=== PATIENT | male | born 1945 | race Caucasian/White ===

== ENCOUNTER → 2017-03-17 06:41 | Emergency (ER) | payer OTHER ==
[~2017-03-17 06:41] MED LIST: Ketorolac INJ* 30 MG/ML 1 ML VIAL IV PUSH ONE; NS 0.9% 1000 ML* 1,000 ML IV ONE; Ondansetron INJ* 2 MG/ML VIAL IV ONE; Orphenadrine Citrate IV* 30 MG/ML 2 ML VIAL IV ONE; fentaNYL* 50 MCG/ML 2 ML VIAL (100 MCG VIAL) IV SLOW PU ONE
[2017-03-17 07:46] LABS: Hematocrit 39 % (42-52); Hemoglobin 13.6 g/dl (14.0-18.0); Mean Corpuscular HGB Conc 35 g/dl (31-36); Mean Corpuscular Hemoglobin 34 pg (27-31); Mean Corpuscular Volume 95 fL (80-94); Mean Platelet Volume 9 um3 (7.4-10.4); Red Blood Count 4.04 10^6/ul (4.0-5.4); Red Cell Distribution Width 13 % (10.5-15); White Blood Count 9.2 10^3/ul (3.5-10.8)
[2017-03-17 08:02] LABS: Albumin 3.8 g/dL (3.2-5.2); BUN/Creatinine Ratio 14.6 (8-20); EGFR African American 53.5 (>60); EGFR Non-African American 41.6 (>60); Potassium 3.8 mmol/L (3.5-5.0); Total Bilirubin 0.6 mg/dL (0.2-1.0); Total Protein 6.8 g/dL (6.4-8.9)
[2017-03-17 08:18] LABS: C Reactive Protein 6.94 mg/L (< 5.00)
[2017-03-17 08:26] LABS: Urine Bacteria Absent (Absent); Urine Bilirubin Negative (Negative); Urine Glucose Negative (Negative); Urine Nitrite Negative (Negative)
--- NOTE | 2017-03-17 08:41 | RAD ---
INDICATION: Bilateral flank and back pain. Question aneurysm of the abdominal aorta versus lumbar pathology. COMPARISON: March 23, 2016 CT TECHNIQUE: Multidetector CT images were obtained from the lung bases to the ischial tuberosities. Evaluation of the viscera is limited without IV contrast. Multiplanar reformation. REPORT: Emphysematous change noted at the visualized lung bases. Coronary artery calcifications. Upper normal heart size. Unremarkable unenhanced liver, gallbladder, pancreas, spleen. Negative for CT abnormality of the upper GI, small bowel, or appendix visualized along the RIGHT pelvic sidewall. Severe colonic diverticulosis most marked at the sigmoid colon without findings of diverticulitis. Negative for ascites, free air. Small fat-containing umbilical hernia without inflammatory change. Normal adrenal glands. Negative for urolithiasis or hydronephrosis. No focal renal lesions evident. Unremarkable nondilated ureters and moderately distended urinary bladder. Symmetric seminal vesicles. Negative for lymphadenopathy. Mild calcific plaque of normal diameter abdominal aorta and common iliac arteries. Physiologic distention of the IVC. Negative for fracture or suspicious focal osseous lesions. Multilevel degenerative spondylosis and facet joint osteoarthritis of the lumbar sacral spine. At L3-L4 dorsal disc osteophyte complex and posterior element hypertrophy results in [id number] acquired central canal stenosis. At L4-L5 there is grade 1 degenerative anterolisthesis. Degenerative spondylosis and severe posterior element osteoarthritis results in severe acquired central canal stenosis and moderate bilateral foraminal stenosis. At L5-S1 degenerative spondylosis and posterior element osteoarthritis results in mild acquired central canal stenosis and mild RIGHT and moderate LEFT foraminal stenosis. IMPRESSION: 1. Negative for obstructive uropathy. 2. Normal appendix documented. 3. Severe sigmoid diverticulosis without findings of diverticulitis. 4. Lumbar sacral spine degenerative spondylosis and posterior element osteoarthritis with resulting multilevel spinal stenosis without significant interval change.
[2017-03-17 09:55] VITALS: BP 127/75
--- NOTE | 2017-03-17 10:02 | ED ---
Mariana Hammond Alfonso, scribed for Danny Price MD on 03/17/17 at 0711 . Back Pain - HPI Summary HPI Summary: This patient is a 71 year old F BIBA to [facility] accompanied by female with a chief complaint of back spasms since last night. He reports "I was getting out of the car last night" and "I twisted my body and wrenched my back and I have been on the floor since then." He denies experience back spasms before last night. The patient rates the pain 7/10 in severity. Symptoms aggravated by movement and alleviated by position. Symptoms not alleviated by ASA and Tylenol taken at approximately 0300 today. The patient reports SOB "it is like my diaphragm paralyzes," dizziness, and lightheadedness. The patient denies abdominal pain. PMHx of DM, HTN, and gout. - History of Current Complaint Chief Complaint: EDBackInjuryPain Stated Complaint: BACK PAIN Time Seen by Provider: 03/17/17 07:03 Hx Obtained From: Patient Onset/Duration: Sudden Onset, Lasting Hours - Last night, Still Present Timing: Constant Severity Initially: Moderate Severity Currently: Moderate Pain Intensity: 7 Pain Scale Used: 0-10 Numeric Character: Spasmodic Aggravating Symptom(s): Movement Alleviating Symptom(s): Position Associated Signs And Symptoms: Positive: Other - Positive SOB it is like my diaphragm paralyzes, dizziness, and lightheadedness.. Negative: Abdominal Pain - Allergies/Home Medications Allergies/Adverse Reactions: Allergies Allergy/AdvReac Type Severity Reaction Status Date / Time Shellfish Allergy Allergy Severe Airway Verified 03/17/17 06:49 Obstruction Sulfa Drugs Allergy Severe Anaphylatic Verified 03/17/17 06:49 Shock PMH/Surg Hx/FS Hx/Imm Hx Endocrine/Hematology History: Reports: Hx Diabetes - controlled with oral medication Denies: Hx Thyroid Disease, Hx Anemia Cardiovascular History: Reports: Hx Hypercholesterolemia, Hx Hypertension - controlled via medication Respiratory History: Denies: Hx Asthma, Hx Chronic Obstructive Pulmonary Disease (COPD) GI History: Reports: Hx Diverticulosis Denies: Hx Jaundice, Hx Ulcer History: Reports: Other Problems/Disorders - UTIs Musculoskeletal History: Reports: Hx Gout, Other Musculoskeletal History - gout Sensory History: Reports: Hx Contacts or Glasses Denies: Hx Hearing Aid Opthamlomology History: Reports: Hx Contacts or Glasses Neurological History: Denies: Hx Headaches - Cancer History Cancer Type, Location and Year: Skin cancer- basal cell, removed - Surgical History Surgery Procedure, Year, and Place: RHINOPLASTY. THUMB SURGERY. Left total knee replacement. 1974 right thumb joint removed Hx Anesthesia Reactions: No - Immunization History Date of Tetanus Vaccine: utd Date of Influenza Vaccine: utd Infectious Disease History: No Infectious Disease History: Denies: Hx Hepatitis, Hx Human Immunodeficiency Virus (HIV), Traveled Outside the [place] in Last 30 Days - Family History Known Family History: Positive: Hypertension, Diabetes - Social History Alcohol Use: Occasionally Alcohol Amount: 3 drinks Hx Substance Use: No Substance Use Type: Reports: None Hx Tobacco Use: Yes Smoking Status (MU): Former Smoker Have You Smoked in the Last Year: No Review of Systems Positive: Shortness Of Breath - "it is like my diaphragm paralyzes Negative: Abdominal Pain Musculoskeletal: Other - Positive back spasms Neurological: Other - Positive dizziness, and lightheadedness All Other Systems Reviewed And Are Negative: Yes Physical Exam - Summary Physical Exam Summary: VITAL SIGNS: Reviewed. GENERAL: Patient is a well-developed and nourished male who is lying comfortable in the stretcher. Patient is not in any acute respiratory distress. HEAD AND FACE: No signs of trauma. No ecchymosis, hematomas or skull depressions. No sinus tenderness. EYES: PERRLA, EOMI x 2, No injected conjunctiva, no nystagmus. EARS: Hearing grossly intact. Ear canals and tympanic membranes are within normal limits. MOUTH: Oropharynx within normal limits. NECK: Supple, trachea is midline, no adenopathy, no JVD, no carotid bruit, no c- spine tenderness, neck with full ROM. CHEST: Symmetric, no tenderness at palpation LUNGS: Clear to auscultation bilaterally. No wheezing or crackles. CVS: Regular rate and rhythm, S1 and S2 present, no murmurs or gallops appreciated. ABDOMEN: Soft, non-tender. No signs of distention. No rebound no guarding, and no masses palpated. Bowel sounds are normal. BACK: Diffuse muscle spasms in lumbar and thoracic spine. EXTREMITIES: FROM in all major joints, no edema, no cyanosis or clubbing. NEURO: Alert and oriented x 3. No acute neurological deficits. Speech is normal and follows commands. SKIN: Dry and warm Triage Information Reviewed: Yes Vital Signs On Initial Exam: Initial Vitals Temp Pulse Resp BP Pulse Ox 97.3 F 87 16 132/48 95 03/17/17 06:43 03/17/17 06:43 03/17/17 06:43 03/17/17 06:43 03/17/17 06:43 Vital Signs Reviewed: Yes - [place] Coma Scale Coma Scale Total: 15 Diagnostics - Vital Signs Vital Signs Temp Pulse Resp BP Pulse Ox 03/17/17 06:45 97.3 F 86 16 132/48 94 03/17/17 06:43 97.3 F 87 16 132/48 95 - Laboratory Lab Results: Lab Results 03/17/17 03/17/17 03/17/17 Range/Units 07:39 07:39 07:39 WBC 9.2 (3.5-10.8) 10^3/ul RBC 4.04 (4.0-5.4) 10^6/ul Hgb 13.6 L (14.0-18.0) g/dl Hct 39 L (42-52) % MCV 95 H (80-94) fL MCH 34 H (27-31) pg MCHC 35 (31-36) g/dl RDW 13 (10.5-15) % Plt Count 164 (150-450) 10^3/ul MPV 9 (7.4-10.4) um3 Neut % (Auto) 70.9 (38-83) % Lymph % (Auto) 14.7 L (25-47) % [place] % (Auto) 11.5 H (1-9) % Eos % (Auto) 2.0 (0-6) % Baso % (Auto) 0.9 (0-2) % Absolute Neuts (auto) 6.6 (1.5-7.7) 10^3/ul Absolute Lymphs (auto) 1.4 (1.0-4.8) 10^3/ul Absolute Monos (auto) 1.1 H (0-0.8) 10^3/ul Absolute Eos (auto) 0.2 (0-0.6) 10^3/ul Absolute Basos (auto) 0.1 (0-0.2) 10^3/ul Absolute Nucleated RBC 0 10^3/ul Nucleated RBC % 0 Sodium 133 (133-145) mmol/L Potassium 3.8 (3.5-5.0) mmol/L Chloride 98 L (101-111) mmol/L Carbon Dioxide 26 (22-32) mmol/L Anion Gap 9 (2-11) mmol/L BUN 24 (6-24) mg/dL Creatinine 1.64 H (0.67-1.17) mg/dL Est GFR ( Amer) 53.5 (>60) Est GFR (Non-Af Amer) 41.6 (>60) BUN/Creatinine Ratio 14.6 (8-20) Glucose 193 H (70-100) mg/dL Lactic Acid 1.4 (0.5-2.0) mmol/L Calcium 10.0 (8.6-10.3) mg/dL Total Bilirubin 0.60 (0.2-1.0) mg/dL AST 120 H (13-39) U/L ALT 106 H (7-52) U/L Alkaline Phosphatase 40 (34-104) U/L C-Reactive Protein 6.94 H (< 5.00) mg/L Total Protein 6.8 (6.4-8.9) g/dL Albumin 3.8 (3.2-5.2) g/dL Globulin 3.0 (2-4) g/dL Albumin/Globulin Ratio 1.3 (1-3) Urine Color Urine Appearance Urine pH (5-9) Ur Specific [place] (1.010-1.030) Urine Protein (Negative) Urine Ketones (Negative) Urine Blood (Negative) Urine Nitrate (Negative) Urine Bilirubin (Negative) Urine Urobilinogen (Negative) Ur Leukocyte Esterase (Negative) Urine WBC (Auto) (Absent) Urine RBC (Auto) (Absent) Ur Squamous Epith Cells (Absent) Urine Bacteria (Absent) Hyaline Casts (Absent) Urine Glucose (Negative) 03/17/17 Range/Units 08:06 WBC (3.5-10.8) 10^3/ul RBC (4.0-5.4) 10^6/ul Hgb (14.0-18.0) g/dl Hct (42-52) % MCV (80-94) fL MCH (27-31) pg MCHC (31-36) g/dl RDW (10.5-15) % Plt Count (150-450) 10^3/ul MPV (7.4-10.4) um3 Neut % (Auto) (38-83) % Lymph % (Auto) (25-47) % [place] % (Auto) (1-9) % Eos % (Auto) (0-6) % Baso % (Auto) (0-2) % Absolute Neuts (auto) (1.5-7.7) 10^3/ul Absolute Lymphs (auto) (1.0-4.8) 10^3/ul Absolute Monos (auto) (0-0.8) 10^3/ul Absolute Eos (auto) (0-0.6) 10^3/ul Absolute Basos (auto) (0-0.2) 10^3/ul Absolute Nucleated RBC 10^3/ul Nucleated RBC % Sodium (133-145) mmol/L Potassium (3.5-5.0) mmol/L Chloride (101-111) mmol/L Carbon Dioxide (22-32) mmol/L Anion Gap (2-11) mmol/L BUN (6-24) mg/dL Creatinine (0.67-1.17) mg/dL Est GFR ( Amer) (>60) Est GFR (Non-Af Amer) (>60) BUN/Creatinine Ratio (8-20) Glucose (70-100) mg/dL Lactic Acid (0.5-2.0) mmol/L Calcium (8.6-10.3) mg/dL Total Bilirubin (0.2-1.0) mg/dL AST (13-39) U/L ALT (7-52) U/L Alkaline Phosphatase (34-104) U/L C-Reactive Protein (< 5.00) mg/L Total Protein (6.4-8.9) g/dL Albumin (3.2-5.2) g/dL Globulin (2-4) g/dL Albumin/Globulin Ratio (1-3) Urine Color [place] Urine Appearance Cloudy Urine pH 5.0 (5-9) Ur Specific [place] 1.017 (1.010-1.030) Urine Protein 1+(30 mg/dl) H (Negative) Urine Ketones Trace H (Negative) Urine Blood Negative (Negative) Urine Nitrate Negative (Negative) Urine Bilirubin Negative (Negative) Urine Urobilinogen Negative (Negative) Ur Leukocyte Esterase 1+ H (Negative) Urine WBC (Auto) Trace(0-5/hpf) (Absent) Urine RBC (Auto) Absent (Absent) Ur Squamous Epith Cells Present H (Absent) Urine Bacteria Absent (Absent) Hyaline Casts Present H (Absent) Urine Glucose Negative (Negative) Result Diagrams: 03/17/17 07:39 03/17/17 07:39 Lab Statement: Any lab studies that have been ordered have been reviewed, and results considered in the medical decision making process. - CT A/P CT Interpretation Completed By: Radiologist - 1. Negative for obstructive uropathy. 2. Normal appendix documented. 3. Severe sigmoid diverticulosis without findings of diverticulitis. 4. Lumbar sacral spine degenerative spondylosis and posterior element osteoarthritis with resulting multilevel spinal stenosis without significant interval change. Re-Evaluation - Re-Evaluation First Eval Re-Evaluation Time: 09:17 Change: Improved Comment: Patient is feeling much better. He is able to move. He denies any pain at this time. Discussed lab results and plan for discharge. He understands and agrees. Back Pain Course/Dx - Course Course Of Treatment: This patient is a 71 year old F BIBA to [facility] accompanied by female with a chief complaint of back spasms since last night. He reports "I was getting out of the car last night" and "I twisted my body and wrenched my back and I have been on the floor since then." He denies experience back spasms before last night. The patient rates the pain 7/10 in severity. Symptoms aggravated by movement and alleviated by position. Symptoms not alleviated by ASA and Tylenol taken at approximately 0300 today. The patient reports SOB "it is like my diaphragm paralyzes," dizziness, and lightheadedness. The patient denies abdominal pain. PMHx of DM, HTN, and gout. Assessment/Plan: CT A/P reveals 1. Negative for obstructive uropathy. 2. Normal appendix documented. 3. Severe sigmoid diverticulosis without findings of diverticulitis. 4. Lumbar sacral spine degenerative spondylosis and posterior element osteoarthritis with resulting multilevel spinal stenosis without significant interval change. In the ED course, the patient was given Toradol, Zofran, Norflex, and Fentanyl. Symptoms have significantly improved. At this point the patient is ambulating without significant discomfort. The patient will be discharged home with PCP follow up. Patient is hemodynamically stable and alert and oriented to person, place, and time. At this point I discussed all the findings and test results with the patient. Patient was instructed to return to the emergency room immediately if any of the symptoms return or worsens. Patient understands and agrees. Patient is able to ambulate freely w/o aid or limp in the ER. Plan of care was discussed with the patient and patient understands and agrees. All questions were answered at patient satisfaction. There were no further complaints or concerns. Neurological exam before discharge: Patient is alert and oriented x 3. No acute neurological deficits. Patient is hemodynamically stable. Patient is to follow up with primary care physician in the next 2 3 days. He understands and agrees. - Diagnoses Differential Diagnosis/HQI/PQRI: Positive: Arthritis, Herniated Disc, Renal Colic, Strain, Sprain Provider Diagnoses: Back pain, Back spasm Discharge - Discharge Plan Condition: Stable Disposition: HOME Prescriptions: Ibuprofen TAB* [Motrin TAB* 800 MG] 800 mg PO ONCE PRN #30 tab PRN Reason: Pain Methocarbamol [Robaxin-750 MG TAB] 750 mg PO TID #12 tab oxyCODONE/Acetamin 5/325 MG* [Percocet 5/325 TAB*] 1 tab PO Q6H PRN #12 tab MDD 4 PRN Reason: Pain Patient Education Materials: Back Pain (ED), Muscle Spasm (ED) Referrals: [facility] [Outside] - 3 Days The documentation as recorded by the Mariana mckeon Alfonso accurately reflects the service I personally performed and the decisions made by me, Danny Price MD.
--- NOTE | 2017-03-19 12:02 | PN ---
Progress Note - Progress Note Date of Service: 03/17/17 Note: preliminary urine culture results showed 10-25,000 of e. coli. no further action or treatment needed at this time. diagnosed with back pain and spasm at d/c.
== END | disposition home or self-care (01) ==
LOC: ED 06:41
DX: M62.830 Muscle spasm of back (principal); R06.02 Shortness of breath; Z87.891 Personal history of nicotine dependence; M54.9 Dorsalgia, unspecified
CPT/HCPCS: 36415; 74176; 80053; 81003; 81015; 83605; 85025; 86140; 87077; 87086; 87186; 96374; 96375; 99283; J1885; J2360; J2405; J3010

== ENCOUNTER 2017-09-04 00:53 | Emergency (ER) | payer OTHER ==
[2017-09-04] MEDS ORDERED: NS 0.9% 1000 ML* 1,000 ML IV ONE (01:56)
[2017-09-04 02:32] LABS: ABS Basophils 0.1 10^3/ul (0-0.2); ABS Eosinophils 0.2 10^3/ul (0-0.6); ABS Lymphocytes 1.3 10^3/ul (1.0-4.8); ABS Monocytes 1.1 10^3/ul (0-0.8); ABS Nucleated RBC 0 10^3/ul; Eosinophil % 1.3 % (0-6); Hematocrit 40 % (42-52); Lymphocyte % 8.4 % (25-47); Mean Corpuscular HGB Conc 35 g/dl (31-36); Mean Corpuscular Hemoglobin 32 pg (27-31); Mean Corpuscular Volume 94 fL (80-94); Mean Platelet Volume 9 um3 (7.4-10.4); Nucleated Red Blood Cells % 0; Platelet Count 196 10^3/ul (150-450); Red Cell Distribution Width 12 % (10.5-15); White Blood Count 15.7 10^3/ul (3.5-10.8)
[2017-09-04 02:41] LABS: Urine Appearance Turbid; Urine Blood 3+ (Negative); Urine Color Amber; Urine Ketones Trace (Negative); Urine Protein 2+(100 mg/dL) (Negative); Urine Specific Gravity 1.027 (1.010-1.030); Urine Urobilinogen Negative (Negative)
[2017-09-04 02:43] LABS: EGFR Non-African American 68.1 (>60)
[2017-09-04] MEDS ORDERED: Levofloxacin 500 MG IVPREMIX(* 500 MG/100 ML BAG IVPB ONE (02:59)
[2017-09-04 04:59] VITALS: BP 128/81
--- NOTE | 2017-09-04 05:31 | ED ---
Gillian Hammond Julia, scribed for Jesus Araya MD on 09/04/17 at 0151 . GI/ HPI - HPI Summary HPI Summary: This patient is a 71 year old M presenting to [facility] with a chief complaint of worsening urinary frequency since 16:00 09/03/17. Patient reports hematuria, mild back pain and that he is uncomfortable while urinating, but denies painful urination. Patient denies vomiting or fever. The patient rates the pain 5/10 in severity. Patient has history of kidney stones and UTI. Patient is currently taking prostate medication. - History of Current Complaint Chief Complaint: EDUrogenitalProblems Time Seen by Provider: 09/04/17 01:38 Stated Complaint: FREQUENT URINATION, ABD PAIN Hx Obtained From: Patient Onset/Duration: Started Days Ago Timing: Constant Severity: Worse Since: - 16:00 09/03/17 Current Severity: Mild Pain Intensity: 5 Location of Pain: Diffuse, Flank Associated Signs and Symptoms: Positive: Other: - urinary frequency and hematuria - Additional Pertinent History Primary Care Physician: [id number] - Allergy/Home Medications Allergies/Adverse Reactions: Allergies Allergy/AdvReac Type Severity Reaction Status Date / Time Shellfish Allergy Allergy Severe Airway Verified 03/17/17 06:49 Obstruction Sulfa Drugs Allergy Severe Anaphylatic Verified 03/17/17 06:49 Shock PMH/Surg Hx/FS Hx/Imm Hx Endocrine/Hematology History: Reports: Hx Diabetes - controlled with oral medication Denies: Hx Thyroid Disease, Hx Anemia Cardiovascular History: Reports: Hx Hypercholesterolemia, Hx Hypertension - controlled via medication Respiratory History: Denies: Hx Asthma, Hx Chronic Obstructive Pulmonary Disease (COPD) GI History: Reports: Hx Diverticulosis Denies: Hx Jaundice, Hx Ulcer History: Reports: Hx Kidney Stones, Other Problems/Disorders - UTIs Musculoskeletal History: Reports: Hx Gout, Other Musculoskeletal History - gout Sensory History: Reports: Hx Contacts or Glasses Denies: Hx Hearing Aid Opthamlomology History: Reports: Hx Contacts or Glasses Neurological History: Denies: Hx Headaches - Cancer History Cancer Type, Location and Year: Skin cancer- basal cell, removed - Surgical History Surgery Procedure, Year, and Place: RHINOPLASTY. THUMB SURGERY. Left total knee replacement. 1975 right thumb joint removed Hx Anesthesia Reactions: No - Immunization History Date of Tetanus Vaccine: utd Date of Influenza Vaccine: utd Infectious Disease History: No Infectious Disease History: Denies: Hx Hepatitis, Hx Human Immunodeficiency Virus (HIV), Traveled Outside the [place] in Last 30 Days - Family History Known Family History: Positive: Hypertension, Diabetes - Social History Alcohol Use: Occasionally Alcohol Amount: 3 drinks Hx Substance Use: No Substance Use Type: Reports: None Hx Tobacco Use: Yes Smoking Status (MU): Former Smoker Have You Smoked in the Last Year: No Review of Systems Negative: Fever Negative: Vomiting Positive: dysuria - "uncomfortable", frequency, flank pain, hematuria All Other Systems Reviewed And Are Negative: Yes Physical Exam Triage Information Reviewed: Yes Vital Signs On Initial Exam: Initial Vitals Temp Pulse Resp BP Pulse Ox 100.1 F 100 20 135/86 97 09/04/17 01:16 09/04/17 01:16 09/04/17 01:16 09/04/17 01:16 09/04/17 01:16 Vital Signs Reviewed: Yes Appearance: Positive: Well-Appearing Skin: Positive: Skin Color Reflects Adequate Perfusion Head/Face: Positive: Normal Head/Face Inspection Eyes: Positive: Normal ENT: Positive: Normal ENT inspection Respiratory/Lung Sounds: Positive: Breath Sounds Present Cardiovascular: Positive: Normal Abdomen Description: Positive: Nontender Musculoskeletal: Positive: Normal Neurological: Positive: Normal Psychiatric: Positive: Normal AVPU Assessment: Alert Diagnostics - Vital Signs Vital Signs Temp Pulse Resp BP Pulse Ox 09/04/17 01:16 100.1 F 100 20 135/86 97 - Laboratory Result Diagrams: 09/04/17 02:15 09/04/17 02:15 Lab Statement: Any lab studies that have been ordered have been reviewed, and results considered in the medical decision making process. - CT A/P CT Interpretation Completed By: Radiologist - Bilateral perinephric stranding is likely chronic. ED Physician has reviewed this report. GIGU Course/Dx - Course Course Of Treatment: Patient presents with urinary mild back pain, frequency and hemarturia. Pt has hx of UTIs and Kidney stones. Bloodwork reveals WBC of 15.7 and C-reactive protein of 17.95. UA reveals 2+ protein, 3+ leukocytes, 3+ bacteria, 3+ WBC, and 3+ RBC. Patient was given Levaquin and IV fluids. Patietn is discharged with dx of UTI. I instructed patient to follow up with PCP and urologist. - Diagnoses Provider Diagnoses: UTI (urinary tract infection) Discharge - Discharge Plan Condition: Stable Disposition: HOME Prescriptions: Levofloxacin TAB* [Levaquin TAB*] 500 mg PO DAILY #10 tab Patient Education Materials: Urinary Tract Infection in Men (DC) Referrals: Sylvester Desai MD [Primary Care Provider] - Additional Instructions: Follow up with Primary Care Provider and Urologist. Patient provided with prescription for Levaquin. RETURN TO THE EMERGENCY DEPARTMENT FOR CHANGING OR WORSENING SYMPTOMS. The documentation as recorded by the Gillian mckeon Julia accurately reflects the service I personally performed and the decisions made by Quiana flannery Abdul, MD.
--- NOTE | 2017-09-04 07:47 | RAD ---
INDICATION: Urinary frequency. Hematuria. History of UTIs and renal stones COMPARISON: CT abdomen pelvis March 17, 2017 TECHNIQUE: Noncontrast axial source images were acquired from the level hemidiaphragms to the symphysis pubis as part of CT imaging for renal stone. Lung bases: The lung bases are clear. There are mild emphysematous changes in the lung bases Liver: The liver is normal in size. Noncontrast imaging shows no evidence of a hepatic mass or ductal dilatation. Gallbladder: There are no calcified gallstones. There is no evidence of wall thickening or pericholecystic fluid.. Spleen: The spleen is normal in size. The noncontrast CT appearance is normal. Pancreas: Noncontrast imaging shows no pancreatic mass or ductal dilitation. Adrenal glands: No masses are identified. Kidneys/Bladder: There is no evidence of nephrolithiasis or CT evidence of hydronephrosis. Noncontrast imaging shows no evidence of a renal mass. There may be mild thickening of the bladder wall. Adenopathy: There is no evidence of intraperitoneal or retroperitoneal adenopathy. Evaluation is limited without oral contrast. Fluid collections: There are no free or localized fluid collections. Vessels: The aorta and iliac vessels are normal in caliber. There are no significant atherosclerotic changes. The IVC appears normal Pelvic organs: The prostate and seminal vesicles appear normal GI tract: Evaluation of the bowel is limited without oral contrast. There is a small moderate-sized hiatal hernia. The upper GI tract is otherwise unremarkable to include a normal-appearing trauma ileum. The ileocecal valve is normal. The appendix is identified and appears normal. The right and transverse colon are normal. There are extensive diverticula of the sigmoid and descending colon without CT findings specific for diverticulitis. The Soft tissues: No soft tissue abnormalities of the extraperitoneal abdomen or pelvis are identified. Osseous structures: There is advanced spondylitic changes of thoracolumbar spine as previously described. IMPRESSION: 1. No CT evidence of urolithiasis. 2. No calcified gallstones. Normal appendix. 3. Hiatal hernia 4. Apparent mild thickening of the bladder wall may reflect cystitis. 5. Extensive diverticular disease without CT evidence of acute diverticulitis. 6. Advanced osteoarthritic changes of the thoracolumbar spine
== END 2017-09-04 04:58 | disposition home or self-care (01) ==
LOC: ED 00:53
DX: N39.0 Urinary tract infection, site not specified (principal); R30.0 Dysuria; E11.9 Type 2 diabetes mellitus without complications; Z87.891 Personal history of nicotine dependence
CPT/HCPCS: 36415; 74176; 80053; 81003; 81015; 85025; 86140; 87040; 87077; 87086; 87186; 99284; J1956

== ENCOUNTER 2018-04-27 12:14 | Emergency (ER) | payer MEDICARE, OTHER ==
--- NOTE | 2018-04-27 13:00 | ED ---
Syncope/Near Syncope - HPI Summary HPI Summary: This patient is a 72 year old M presenting to ED with a chief complaint of syncope while at [facility] with his today. The patient tried to get up out of a beach chair and felt light-headed prior to falling due to the sycnopal episode. He does not remember the incident or the reason why he was getting up from the chair, and was not aware of what was happening until EMS showed up. The patient rates the pain 0/10 in severity. Symptoms aggravated by standing up. Symptoms alleviated by nothing. Patient reports head trauma that is now a little sore. Patient denies SOB and CP. Patient is not on any blood thinners. - History Of Current Complaint Chief Complaint: EDSyncope Time Seen by Provider: 04/27/18 12:49 Hx Obtained From: Patient Onset/Duration: Sudden Onset Context: Witnessed Associated Head Trauma: Yes Aggravating Factor(s): Position Change - standing up from beach chair Alleviating Factor(s): Nothing Associated Signs And Symptoms: Head Trauma (Recent), Lightheadedness - Allergies/Home Medications Allergies/Adverse Reactions: Allergies Allergy/AdvReac Type Severity Reaction Status Date / Time levofloxacin Allergy SEVERE Verified 04/27/18 12:20 NEUROPATHY IN LEGS shellfish derived Allergy Airway Verified 04/27/18 12:20 Obstruction Sulfa (Sulfonamide Allergy Anaphylatic Verified 04/27/18 12:20 Antibiotics) Shock Home Medications: Home Medications Amoxicillin/Clavulanate TAB* [Augmentin TAB 875*] 1 tab PO BID 04/27/18 [ History Confirmed 04/27/18] Atorvastatin* [Lipitor 40 MG*] 40 mg PO DAILY 04/27/18 [History Confirmed ] DULoxetine DR CAP* [Cymbalta CAP*] 1 cap PO DAILY 04/27/18 [History Confirmed ] Gabapentin CAP(*) [Neurontin 100 mg CAP(*)] 200 mg PO DAILY 04/27/18 [History Confirmed 04/27/18] Irbesartan 300 mg PO DAILY 04/27/18 [History Confirmed 04/27/18] Methylphenidate HCl [Methylphenidate ER] 1 tab PO BID MDD 2 tabs 04/27/18 [ History Confirmed 04/27/18] Naproxen Sodium [Aleve] 2 cap PO Q8H PRN 04/27/18 [History Confirmed 04/27/18] glipiZIDE [Glipizide] 5 mg PO BID 04/27/18 [History Confirmed 04/27/18] PMH/Surg Hx/FS Hx/Imm Hx Endocrine/Hematology History: Reports: Hx Diabetes - controlled with oral medication Denies: Hx Thyroid Disease, Hx Anemia Cardiovascular History: Reports: Hx Hypercholesterolemia, Hx Hypertension - controlled via medication Denies: Hx Pacemaker/ICD Respiratory History: Denies: Hx Asthma, Hx Chronic Obstructive Pulmonary Disease (COPD) GI History: Reports: Hx Diverticulosis Denies: Hx Jaundice, Hx Ulcer History: Reports: Hx Kidney Stones, Other Problems/Disorders - UTIs Denies: Hx Renal Disease Musculoskeletal History: Reports: Hx Gout, Other Musculoskeletal History - gout Sensory History: Reports: Hx Contacts or Glasses Denies: Hx Hearing Aid Opthamlomology History: Reports: Hx Contacts or Glasses Neurological History: Denies: Hx Headaches Psychiatric History: Denies: Hx Panic Disorder - Cancer History Cancer Type, Location and Year: Skin cancer- basal cell, removed - Surgical History Surgery Procedure, Year, and Place: RHINOPLASTY. THUMB SURGERY. Left total knee replacement. 1974 right thumb joint removed. SKIN CANCER REMOVAL Hx Anesthesia Reactions: No - Immunization History Date of Tetanus Vaccine: utd Date of Influenza Vaccine: utd Infectious Disease History: No Infectious Disease History: Denies: Hx Hepatitis, Hx Human Immunodeficiency Virus (HIV), Traveled Outside the [place] in Last 30 Days - Family History Known Family History: Positive: Hypertension, Diabetes - Social History Alcohol Use: Daily Alcohol Amount: 3 drinks Hx Substance Use: No Substance Use Type: Reports: None Hx Tobacco Use: Yes Smoking Status (MU): Former Smoker Have You Smoked in the Last Year: No Review of Systems Negative: Chest Pain Negative: Shortness Of Breath Positive: Other - head trauma that is now sore Neurological: Other - light-headedness Positive: Syncope - and fall All Other Systems Reviewed And Are Negative: Yes Physical Exam - Summary Physical Exam Summary: Appearance: The patient is well-nourished in no acute distress and in no acute pain. Skin: The skin is warm and dry and skin color reflects adequate perfusion. HEENT: The head is normocephalic and atraumatic. The pupils are equal and reactive. The conjunctivae are clear and without drainage. Nares are patent and without drainage. Mouth reveals moist mucous membranes and the throat is without erythema and exudate. The external ears are intact. The ear canals are patent and without drainage. The tympanic membranes are intact. Neck: The neck is supple with full range of motion and non-tender. There are no carotid bruits. There is no neck vein distension. Respiratory: Chest is non-tender. Lungs are clear to auscultation and breath sounds are symmetrical and equal. Cardiovascular: Has an irregular heartbeat. There is no murmur or rub auscultated. There is no peripheral edema and pulses are symmetrical and equal. Abdomen: The abdomen is soft and non-tender. There are normal bowel sounds heard in all four quadrants and there is no organomegaly palpated. Musculoskeletal: There is no back tenderness noted. Extremities are non-tender with full range of motion. There is good capillary refill. There is no peripheral edema or calf tenderness elicited. Neurological: Patient is alert and oriented to person, place and time. The patient has symmetrical motor strength in all four extremities. Cranial nerves are grossly intact. Deep tendon reflexes are symmetrical and equal in all four extremities. Psychiatric: The patient has an appropriate affect and does not exhibit any anxiety or depression. Triage Information Reviewed: Yes Vital Signs On Initial Exam: Initial Vitals Temp Pulse Resp BP Pulse Ox 98.6 F 77 14 133/71 96 04/27/18 12:15 04/27/18 12:15 04/27/18 12:15 04/27/18 12:15 04/27/18 12:15 Vital Signs Reviewed: Yes Diagnostics - Vital Signs Vital Signs Temp Pulse Resp BP Pulse Ox 04/27/18 12:15 98.6 F 77 14 133/71 96 - Laboratory Result Diagrams: 04/27/18 13:13 04/27/18 13:13 Lab Statement: Any lab studies that have been ordered have been reviewed, and results considered in the medical decision making process. - EKG 1554 Cardiac Rate: NL - 70 BPM EKG Rhythm: Sinus Rhythm Ectopy: PACs EKG Interpretation: L axis deviation Re-Evaluation - Re-Evaluation First Eval Re-Evaluation Time: 15:03 Comment: Discussed results with the patient and plan for admission. Patient understands and agrees with this plan. Course/Dx Course Of Treatment: Mr. Scott presented to the emergency department after a syncopal episode at [facility]. He had been sitting in a low-slung chair playing [employer] and that's the last he remembers. He was reported that he attempted to stand up and then fell over hitting the back of his head. He reports that it is not unusual for him to get dizzy if he stands up too quickly. His workup was negative here except for an elevated lactic acid. My concern was for the fact that he had no warning signs or symptoms of his impending syncope although this may represent an amnesia after hitting his head. The hospice were asked to consult on him and felt that he was safe for discharge after being administered a liter of normal saline. - Diagnoses Differential Diagnosis/HQI/PQRI: Positive: Other - syncope, lactic acidosis Provider Diagnoses: Syncope, Lactic acidosis - Physician Notifications Discussed Care of Patient With: Dana Recio Time Discussed With Above Provider: 14:57 Instructed by Provider To: Other - Consulted Dr. Recio who accepts the patient for admission. Consulted Dr. Desai at 1501 about the patient's case. Dr. Recio says that the patient can actually be discharged. Therefore, the patient will be discharged. Discharge - Sign-Out/Discharge Documenting (check all that apply): Patient Departure - Discharged - Discharge Plan Condition: Stable Disposition: HOME Patient Education Materials: Syncope (ED) Referrals: Sylvester Desai MD [Primary Care Provider] - (Please follow up with your primary care physician in 2-3 days.) Additional Instructions: Please follow up with your primary care physician in 2-3 days. RETURN TO THE ED FOR ANY NEW OR WORSENING SYMPTOMS. - Billing Disposition and Condition Condition: STABLE Disposition: Home - Attestation Statements Document Initiated by Sunita: Yes Documenting Scribe: Nicolas Herman Provider For Whom Sunita is Documenting (Include Credential): Wilson Jara MD Scribe Attestation: Nicolas Hammond, scribed for Wilson Jara MD on 04/27/18 at 8874. Scribe Documentation Reviewed: Yes Provider Attestation: The documentation as recorded by the Nicolas mckeon accurately reflects the service I personally performed and the decisions made by me, Wilson Jara MD
[2018-04-27 13:26] LABS: ABS Basophils 0.1 10^3/ul (0-0.2); ABS Eosinophils 0.5 10^3/ul (0-0.6); ABS Lymphocytes 1.5 10^3/ul (1.0-4.8); ABS Monocytes 0.6 10^3/ul (0-0.8); ABS Neutrophils 5.4 10^3/ul (1.5-7.7); ABS Nucleated RBC 0 10^3/ul; Eosinophil % 6.6 % (0-6); Hematocrit 38 % (42-52); Hemoglobin 13.2 g/dl (14.0-18.0); Mean Corpuscular HGB Conc 35 g/dl (31-36); Mean Corpuscular Hemoglobin 32 pg (27-31); Mean Corpuscular Volume 91 fL (80-94); Mean Platelet Volume 8.1 um3 (7.4-10.4); Nucleated Red Blood Cells % 0; Platelet Count 241 10^3/ul (150-450); Red Blood Count 4.12 10^6/ul (4.00-5.40); Red Cell Distribution Width 13 % (10.5-15); White Blood Count 8.1 10^3/ul (3.5-10.8)
[2018-04-27 13:31] LABS: INR 0.97 (0.77-1.02)
[2018-04-27 13:42] LABS: EGFR Non-African American 58.9 (>60)
[2018-04-27 14:09] LABS: Urine Appearance Clear; Urine Blood Negative (Negative); Urine Color Yellow; Urine Ketones Negative (Negative); Urine Protein Negative (Negative); Urine Specific Gravity 1.008 (1.010-1.030); Urine Urobilinogen Negative (Negative)
[2018-04-27] MEDS ORDERED: NS 0.9% 1000 ML* 1,000 ML IV ONE (14:54)
[2018-04-27] MEDS ORDERED: Magnesium Oxide TAB* 400 MG PO ONE (16:46)
[2018-04-27 17:32] VITALS: BP 142/90
--- NOTE | 2018-04-27 21:01 | CONS ---
ADDENDUM NOW INCLUDED ON THIS REPORT CC: Dr. Desai * HOSPITAL MEDICINE CONSULTATION REPORT: DATE OF CONSULT: 04/27/18 PRIMARY CARE PHYSICIAN: Dr. Desai. CONSULTING PHYSICIAN: Dr. Olinda Khan * (dictation provided by Adelina Dougherty NP). REASON FOR CONSULT: Concern for need for admission. HISTORY OF PRESENT ILLNESS: Mr. Allred is a 72-year-old male with past medical history of type 2 diabetes, depression, gout, hypertension, and hyperlipidemia, who presented to the hospital today with concern for an episode of syncope. The patient states that he has had episodes of lightheadedness when he goes from sit to stand for a very long time. He will also feel oozy or lightheaded and sometime he will need to sit back down. These symptoms resolve within a few seconds and on a couple of occasions in the distant past, he had to lie down on the floor when he had these symptoms, but again never had a full syncopal episode. Today was a warm day and the patient was out to [facility] sitting on a low chair. When he went to stand, he felt very lightheaded and oozy per his routine. He asked his to help steady him, but he was unable to catch himself when he fell backwards and hit his head. He was unconscious very briefly. He did not bite his tongue or lose control of his bowel or bladder. EMS was called and the patient was brought to the hospital. EMS notes that the patient's blood pressure was about 90/60 at the [facility] prior to arrival here. The patient initially stated he did not remember any of the events of the EMS coming or being transported, but now he states he remembers all that very clearly. The patient denies any recent complaints. He was feeling well yesterday. He has had no cough, chest pain, fever, shortness of breath, nausea, vomiting, diarrhea, or abdominal pain. He has been treated recently for urinary tract infection under the direction of Dr. Galicia. He was on Augmentin for [address] Galicia on Saturday, who saw some red cells in the urine and recommended an additional 5-day course. The patient denies any pain or difficulty with urination. In the emergency room, the patient had labs, which were unremarkable, except for lactic acid of 3.5. He has no leukocytosis. His electrolytes are essentially normal. His creatinine is 1.21. His AST is 86, ALT 89 consistent with his previous history of transaminitis very mildly. His EKG showed no evidence of ischemia. PAST MEDICAL HISTORY: 1. BPH. 2. Depression. 3. Gout. 4. Hyperlipidemia. 5. Hypertension. 6. Obesity. 7. Type 2 diabetes, non-insulin dependent. MEDICATIONS: 1. Methylphenidate LA 20 mg p.o. daily. 2. Duloxetine DR 60 mg p.o. daily. 3. Augmentin 1 tab p.o. b.i.d. 4. Tamsulosin 0.4 mg p.o. at bedtime. 5. Naproxen p.r.n. 6. Gabapentin 200 mg p.o. daily. 7. Irbesartan 300 mg p.o. daily. 8. Uloric 40 mg p.o. daily. 9. Atorvastatin 40 mg p.o. daily. 10. Glipizide 5 mg p.o. b.i.d. ALLERGIES: LEVOFLOXACIN, SHELLFISH, and SULFA. FAMILY HISTORY: The patient reports his mother related to heart attack, and dad related to lung cancer and CHF. SOCIAL HISTORY: The patient is a former smoker. He quit 30 years ago, but smoked for about 25 years. He drinks about 1 to 2 drinks per night. He denies any drug use. He lives with his , who is his healthcare proxy. REVIEW OF SYSTEMS: A 14-point review of systems was completed with Mr. Allred and all those not mentioned above were negative. PHYSICAL EXAM: Vital Signs: Temperature 98.6, pulse rate 74, respiratory rate 17, O2 saturation 98% on room air, and blood pressure 156/50. General: The patient is lying in the bed. He is in no acute distress. His is at the bedside. Neuro: He is alert. He is oriented x3. He moves all extremities equally. There is no facial asymmetry or focal weakness. Extraocular movements are intact. Heart: S1, S2. No murmur, rub, or gallop and regular. Lungs are clear to auscultation bilaterally, no accessory muscle use and good aeration. Abdomen is soft, nontender with bowel sounds positive x4. Extremities: No cyanosis, no edema. Skin is intact. DIAGNOSTIC STUDIES/LAB DATA: WBC 8.1, hemoglobin 13.2, hematocrit 38, and platelet count 241. INR 0.97. Sodium 134, potassium 3.7, chloride 96, serum bicarbonate 25, BUN 18, creatinine 1.21, glucose 203, lactic acid 3.5, magnesium 1.3. TSH 1.05. Troponin 0.01. Urine shows no evidence of infection. EKG shows sinus rhythm with no evidence of ischemia. Tracing is almost identical to previous tracing from 2016. ASSESSMENT: Mr. Allred is a 72-year-old male with past medical history of benign prostatic hyperplasia, depression, gout, hypertension, hyperlipidemia, and diabetes, who presents to the hospital today after having what sounds to be a vasovagal episode while out at a park today. The question has been asked whether or not the patient should be admitted. The ED physician was concerned as the patient's lactic acid was elevated to 3.5. The patient was given intravenous fluids in the ED and this was rechecked and it is now 1.9. I think that this incidental finding of lactic acid simply reflects a low perfusion state in the setting of vasovagal syncope and has resolved appropriately. The only other finding I see today is the patient's magnesium is little low and would recommend supplementation. The patient's blood pressure was low in the field prior to coming in, but has been running 130s to 150s on his home hydrochlorothiazide, irbesartan; and, therefore, I think he should continue those medications. Based on the patient's description of his symptoms, I believe that he had an episode of vasovagal syncope consistent with his history of frequent near syncopal episodes in the past. I question whether or not he perhaps has a component of diabetic autonomic neuropathy with his history of diabetes, which at least in the past has been poorly controlled. RECOMMENDATIONS: My recommendation is that he follow closely with Dr. Desai and he has an appointment in that office on Saturday of this week. He is to stay hydrated in the meantime and I have spoken with the ED physician about the possibility of putting him on magnesium supplementation as well given his low magnesium, although I think this is incidental finding and not related to his syncope. Mr. Allred is doing very well today. He is completely asymptomatic and he is very clear that he would like to be discharged to home. I think this is appropriate giving our negative workup except for the incidental finding of lactic acidosis, which has resolved. TIME SPENT: Approximately 60 minutes were spent in the consultation of this patient, more than half time was spent with the patient at the bedside reviewing the events leading up to this hospitalization, performing the physical examination, and reviewing the plan of care. ADELINA DOUGHERTY NP ADDENDUM: DATE OF CONSULTATION: 04/27/18 This case was reviewed and discussed with Adelina Dougherty NP. In summary, Mr. Allred is a 72-year-old male with a past medical history of type 2 diabetes, hypertension, hyperlipidemia, gout, depression, who presented to the emergency room after sustaining a syncopal episode at [facility]. The patient describes prior syncopal episodes in the past, usually when changing positions. The impression is that the syncopal episode he sustained today was secondary to dehydration as it was hot out. His laboratory tests showed elevation of his creatinine at 1.2. His magnesium was 1.3. His initial lactic acid was 3.5. His EKG showed no ischemic changes and after receiving IV fluids in the emergency room, the patient felt very anxious for discharge. He states that the symptoms he had today are similar to the symptoms he had in the past. I suspect the patient may have a component of orthostatism due to autonomic neuropathy associated with diabetes and that associated with dehydration today, is most likely the cause of his syncopal episode. After IV fluids in the emergency room, a repeat lactic acid was back to normal at 1.9 and the patient was really anxious to be discharged. He already has a followup appointment at Dr. Desai's office on 04/29/18 and at this point, the plan is for him to be discharged to have his close followup. He was advised to keep himself hydrated. We will replete his electrolytes. As described above, the case was reviewed and discussed with Adelina Dougherty NP. OLINDA Khan MD [id number]/[facility] #: [id number] Andria [id number]/[facility] #: [id number] EFRAIN
--- NOTE | 2018-04-27 21:01 | CONS ---
CC: Sylvester Desai MD CONSULTATION REPORT: ADDENDUM: DATE OF CONSULTATION: 04/27/18 This case was reviewed and discussed with Adelina Dougherty NP. In summary, Mr. Allred is a 72-year-old male with a past medical history of type 2 diabetes, hypertension, hyperlipidemia, gout, depression, who presented to the emergency room after sustaining a syncopal episode at [facility]. The patient describes prior syncopal episodes in the past, usually when changing positions. The impression is that the syncopal episode he sustained today was secondary to dehydration as it was hot out. His laboratory tests showed elevation of his creatinine at 1.2. His magnesium was 1.3. His initial lactic acid was 3.5. His EKG showed no ischemic changes and after receiving IV fluids in the emergency room, the patient felt very anxious for discharge. He states that the symptoms he had today are similar to the symptoms he had in the past. I suspect the patient may have a component of orthostatism due to autonomic neuropathy associated with diabetes and that associated with dehydration today, is most likely the cause of his syncopal episode. After IV fluids in the emergency room, a repeat lactic acid was back to normal at 1.9 and the patient was really anxious to be discharged. He already has a followup appointment at Dr. Desai's office on 04/29/18 and at this point, the plan is for him to be discharged to have his close followup. He was advised to keep himself hydrated. We will replete his electrolytes. As described above, the case was reviewed and discussed with Adelina Dougherty NP. [id number]/[facility] #: [id number] [facility]ENTER[facility]ilian
== END 2018-04-27 17:18 | disposition home or self-care (01) ==
LOC: ED 12:14
DX: R55 Syncope and collapse (principal); E87.2 Acidosis; Z87.891 Personal history of nicotine dependence; I10 Essential (primary) hypertension; E11.9 Type 2 diabetes mellitus without complications; E78.00 Pure hypercholesterolemia, unspecified; Z85.828 Personal history of other malignant neoplasm of skin; E78.5 Hyperlipidemia, unspecified; M10.9 Gout, unspecified; E66.9 Obesity, unspecified
CPT/HCPCS: 36415; 80053; 81003; 83605; 83735; 84443; 84484; 85025; 85610; 86803; 93005; 99284

== ENCOUNTER 2018-12-05 10:59 | Emergency (ER) | payer OTHER ==
--- NOTE | 2018-12-05 11:19 | ED ---
Dizziness - HPI Summary HPI Summary: Pt is a 72 y/o M presenting to the ED brought over from the pain clinic for dizziness. The pt was at the pain clinic to receive a Cortisol injection into his back for diabetic neuropathy. Upon taking vitals, they said he was hypotensive. The pt reports chronic dizziness d/t imbalance secondary to neuropathy, but currently states he feels good. He denies SOB. - History Of Current Complaint Chief Complaint: EDDizziness Stated Complaint: LETHARGY/NEAR SYNCOPE PER RN Time Seen by Provider: 12/05/18 11:04 Hx Obtained From: Patient Onset/Duration: Suddenly Timing: Constant Severity Initially: Moderate Severity Currently: Moderate Character: Dizzy Aggravating Factor(s): Position Change Alleviating Factor(s): Nothing Associated Signs And Symptoms: Negative: SOB - Allergies/Home Medications Allergies/Adverse Reactions: Allergies Allergy/AdvReac Type Severity Reaction Status Date / Time levofloxacin Allergy SEVERE Verified 12/05/18 11:06 NEUROPATHY IN LEGS shellfish derived Allergy Airway Verified 12/05/18 11:06 Obstruction Sulfa (Sulfonamide Allergy Anaphylatic Verified 12/05/18 11:06 Antibiotics) Shock Home Medications: Home Medications Amoxicillin PO (*) [Amoxicillin 500 MG CAP*] 500 mg PO ONCE 12/05/18 [History Confirmed 12/05/18] Tamsulosin CAP* [Flomax CAP*] 0.4 mg PO DAILY 12/05/18 [History Confirmed ] PMH/Surg Hx/FS Hx/Imm Hx Previously Healthy: Yes Endocrine/Hematology History: Reports: Hx Diabetes - controlled with oral medication Denies: Hx Thyroid Disease, Hx Anemia Cardiovascular History: Reports: Hx Hypercholesterolemia, Hx Hypertension - controlled via medication Denies: Hx Pacemaker/ICD Respiratory History: Reports: Hx Sleep Apnea Denies: Hx Asthma, Hx Chronic Obstructive Pulmonary Disease (COPD) GI History: Reports: Hx Diverticulosis Denies: Hx Jaundice, Hx Ulcer History: Reports: Hx Benign Prostatic Hyperplasia, Hx Kidney Stones, Other Problems/Disorders - UTIs Denies: Hx Renal Disease Musculoskeletal History: Reports: Hx Arthritis, Hx Back Problems, Hx Gout, Other Musculoskeletal History - gout Sensory History: Reports: Hx Contacts or Glasses Denies: Hx Hearing Aid Opthamlomology History: Reports: Hx Contacts or Glasses Neurological History: Denies: Hx Headaches Comment Only: Other Neuro Impairments/Disorders - PAIN CLINIC PT. Psychiatric History: Reports: Hx Depression Denies: Hx Panic Disorder - Cancer History Cancer Type, Location and Year: Skin cancer- basal cell, removed - Surgical History Surgery Procedure, Year, and Place: RHINOPLASTY. THUMB SURGERY. Left total knee replacement. 1974 right thumb joint removed. SKIN CANCER REMOVAL Hx Anesthesia Reactions: No - Immunization History Date of Tetanus Vaccine: utd Date of Influenza Vaccine: utd Infectious Disease History: No Infectious Disease History: Denies: Hx Hepatitis, Hx Human Immunodeficiency Virus (HIV), Traveled Outside the [place] in Last 30 Days - Family History Known Family History: Positive: Hypertension, Diabetes - Social History Alcohol Use: Weekly Alcohol Amount: 12-14 drinks/week Hx Substance Use: No Substance Use Type: Reports: None Hx Tobacco Use: Yes Smoking Status (MU): Former Smoker Length of Time of Smoking/Using Tobacco: [id number] Have You Smoked in the Last Year: No Review of Systems Negative: Shortness Of Breath Neurological: Other - dizziness All Other Systems Reviewed And Are Negative: Yes Physical Exam - Summary Physical Exam Summary: Appearance: The patient is well-nourished in no acute distress and in no acute pain. Skin: The skin is warm and dry and skin color reflects adequate perfusion. HEENT: The head is normocephalic and atraumatic. The pupils are equal and reactive. The conjunctivae are clear and without drainage. Nares are patent and without drainage. Mouth reveals moist mucous membranes and the throat is without erythema and exudate. The external ears are intact. The ear canals are patent and without drainage. The tympanic membranes are intact. Neck: The neck is supple with full range of motion and non-tender. There are no carotid bruits. There is no neck vein distension. Respiratory: Chest is non-tender. Lungs are clear to auscultation and breath sounds are symmetrical and equal. Cardiovascular: Heart is regular rate and rhythm. There is no murmur or rub auscultated. There is no peripheral edema and pulses are symmetrical and equal. Abdomen: The abdomen is soft and non-tender. There are normal bowel sounds heard in all four quadrants and there is no organomegaly palpated. Musculoskeletal: There is no back tenderness noted. Extremities are non-tender with full range of motion. There is good capillary refill. There is no peripheral edema or calf tenderness elicited. Neurological: Patient is alert and oriented to person, place and time. The patient has symmetrical motor strength in all four extremities. Cranial nerves are grossly intact. Deep tendon reflexes are symmetrical and equal in all four extremities. Psychiatric: The patient has an appropriate affect and does not exhibit any anxiety or depression. Triage Information Reviewed: Yes Vital Signs On Initial Exam: Initial Vitals Pulse Resp Pulse Ox 84 12 90 12/05/18 11:01 12/05/18 11:01 12/05/18 11:01 Vital Signs Reviewed: Yes Diagnostics - Vital Signs Vital Signs Temp Pulse Resp BP Pulse Ox 12/05/18 11:02 97.7 F 80 14 96/55 89 12/05/18 11:01 84 12 90 - Laboratory Result Diagrams: 12/05/18 11:45 12/05/18 11:45 Lab Statement: Any lab studies that have been ordered have been reviewed, and results considered in the medical decision making process. Re-Evaluation - Re-Evaluation 1st re-eval Re-Evaluation Time: 14:05 Change: Improved Comment: Pt states he is feeling better. Dizzy Course/Dx - Course Course Of Treatment: Mr. Allred was sent over from the oncologist office for feeling dizzy and having a low blood pressure. He does not any complaints lying in the gurney. His blood pressure was a little bit low on presentation but he wasn't tachycardic. He was nontoxic in appearance. He was given IV fluids while labs were obtained. His lactic acid was marginally elevated at 3.5. His liver enzymes were elevated and although they've been elevated in the past they were higher. His blood alcohol was 22 indicating that his blood alcohol have been quite high last night. I think this is a combination of dehydration and hangover and he felt much improved after hydration here. He is discharged to follow up with his PCP. - Diagnoses Provider Diagnoses: Dehydration Discharge - Sign-Out/Discharge Documenting (check all that apply): Patient Departure Patient Received Moderate/Deep Sedation with Procedure: No - Discharge Plan Condition: Stable Disposition: HOME Patient Education Materials: Dehydration (ED) Referrals: Sylvester Desai MD [Primary Care Provider] - - Billing Disposition and Condition Condition: STABLE Disposition: Home - Attestation Statements Document Initiated by Scribe: Yes Documenting Scribe: Janelle Jensen Provider For Whom Scribe is Documenting (Include Credential): Wilson Jara MD. Scribe Attestation: I, Janelle Jensen, scribed for Wilson Jara MD. on 12/05/18 at 1611. Scribe Documentation Reviewed: Yes Provider Attestation: The documentation as recorded by the scribe, Janelle Jensen accurately reflects the service I personally performed and the decisions made by me, Wilson Jara MD. Status of Scribe Document: Viewed
[2018-12-05] MEDS ORDERED: NS 0.9% 1000 ML** 1,000 ML IV ONE (11:20)
[2018-12-05 11:53] LABS: ABS Basophils 0 10^3/ul (0-0.2); ABS Eosinophils 0.1 10^3/ul (0-0.6); ABS Lymphocytes 1.4 10^3/ul (1.0-4.8); ABS Monocytes 0.7 10^3/ul (0-0.8); ABS Neutrophils 4.2 10^3/ul (1.5-7.7); ABS Nucleated RBC 0 10^3/ul; Eosinophil % 1.8 %; Hematocrit 37 % (36-46); Hemoglobin 12.8 g/dL (14.0-18.0); Lymphocyte % 21.4 %; Mean Corpuscular HGB Conc 34 g/dL (31-36); Mean Corpuscular Hemoglobin 32 pg (27-31); Mean Corpuscular Volume 94 fL (80-94); Mean Platelet Volume 9.3 fL (7.4-10.4); Nucleated Red Blood Cells % 0; Platelet Count 157 10^3/uL (150-450); Red Blood Count 3.95 10^6 /uL (4.18-5.48); Red Cell Distribution Width 13 % (10.5-15); White Blood Count 6.4 10^3/uL (3.5-10.8)
[2018-12-05 12:11] LABS: INR 1.09 (0.82-1.09)
[2018-12-05 12:16] LABS: Albumin 3.8 g/dL (3.2-5.2); Albumin/Globulin Ratio 1.5 (1-3); Calcium 9.6 mg/dL (8.6-10.3); EGFR African American 66.2 (>60); EGFR Non-African American 54.7 (>60); Globulin 2.6 g/dL (2-4); Magnesium 1.3 mg/dL (1.9-2.7); Potassium 3.6 mmol/L (3.5-5.0); Total Bilirubin 0.7 mg/dL (0.2-1.0); Total Protein 6.4 g/dL (6.4-8.9)
[2018-12-05 12:17] LABS: Troponin I 0.03 ng/mL (<0.04)
[2018-12-05 12:49] LABS: TSH (Thyroid Stimulating Horm) 1.36 mcIU/mL (0.34-5.60)
[2018-12-05 13:42] LABS: Urine Appearance Cloudy; Urine Bacteria 1+ (Absent); Urine Bilirubin Negative (Negative); Urine Blood Negative (Negative); Urine Color Amber; Urine Glucose 1+(50 mg/dL) (Negative); Urine Ketones Trace (Negative); Urine Nitrite Negative (Negative); Urine Protein 1+(30 mg/dL) (Negative); Urine Red Blood Cell 2+(6-10/hpf) (Absent); Urine Specific Gravity 1.023 (1.010-1.030); Urine Squamous Epithelial Cell Present (Absent); Urine Urobilinogen Positive (Negative); Urine White Blood Cell 3+(>20/hpf) (Absent)
[2018-12-05 14:47] VITALS: BP 108/87
--- NOTE | 2018-12-08 10:02 | PN ---
Progress Note - Progress Note Date of Service: 12/05/18 Note: Patient was seen for dizziness. He denied any urine symptoms. Urine culture grew yeast Patient will not be placed on antifungals at this time as patient remains asymptomatic
== END 2018-12-05 15:25 | disposition home or self-care (01) ==
LOC: ED 10:59
DX: E86.0 Dehydration (principal); E11.9 Type 2 diabetes mellitus without complications; E78.00 Pure hypercholesterolemia, unspecified; I10 Essential (primary) hypertension; J44.9 Chronic obstructive pulmonary disease, unspecified; N40.0 Benign prostatic hyperplasia without lower urinary tract symptoms; Z85.828 Personal history of other malignant neoplasm of skin; F32.9 Major depressive disorder, single episode, unspecified; Z87.891 Personal history of nicotine dependence
CPT/HCPCS: 36415; 80053; 80320; 81003; 81015; 83605; 83735; 84443; 84484; 85025; 85610; 87086; 87106; 96360; 99283; G0480

== ENCOUNTER 2019-04-16 07:30 | Inpatient (IN) | payer OTHER ==
[2019-04-20] MEDS ORDERED: Buffered Lidocaine 1% SYRIN* 1 ML/SYRINGE INTRADERM ONE (12:55)
--- OUTSIDE RECORDS SUMMARY | 2019-04-21 05:53 | XMS REPORT | Continuity of Care Document ---
:1945 External Reference #:[id number] Author Name Clint Ulrich DO FAC (transmitted by agent of provider Sonja Delgadillo) Address [address] [place] [address] Care Team Providers Name Role Phone Sylvester Desai MD - Endocrinology, Care Team Information Nurse Sane Diabetes & Metabolism Problems Active Problems Provider Date Infected hand Claire Alexandra M.D. Onset: 03/25/2015 Arthroplasty of knee Claire Alexandra M.D. Onset: 05/17/2017 Localized, primary osteoarthritis of the pelvic Claire Alexandra M.D. Onset: 01/2017 region and thigh Trochanteric bursitis Claire Alexandra M.D. Onset: 05/17/2017 Social History Type Date Description Comments Sex Unknown ETOH Use Currently consumes 1-2 drinks per alcohol night Tobacco Use Start: Unknown End: Patient is a former quit 1987, smoked Unknown smoker for 20 years Recreational Drug Use Denies Drug Use Smoking Status Reviewed: 04/16/19 Patient is a former quit 1987, smoked smoker for 20 years Exercise Type/Frequency Exercises sporadically Allergies, Adverse Reactions, Alerts Active Allergies Reaction Severity Comments Date Sulfa Antibiotics 03/28/2015 Shellfish-derived Products 03/28/2015 Levaquin 05/16/2018 Amlodipine Severe 05/16/2018 Metformin diarrhea 05/16/2018 Metoprolol Severe 05/16/2018 Nuts 05/16/2018 Verapamil dizziness Moderate 05/16/2018 Medications Active Medications SIG Qnty Indications Ordering Date Provider LSO Brace When out of bed M43.16 Vassilios 04/08/2019 after surgery MD Julián Uloric 1 by mouth daily Unknown 40mg Glipizide 1 by mouth twice Unknown 5mg per day Hydrochlorothiazide 1 by mouth daily Unknown 12.5mg Cymbalta 1 by mouth daily Unknown 60mg Atorvastatin Calcium 1 by mouth daily Unknown 40mg Irbesartan 1 by mouth daily Unknown 300mg Tamsulosin HCL 1 by mouth every Unknown 0.4mg Capsules day Aleve 1-2 by mouth Unknown 220mg Capsules twice a day as needed Colchicine 1 by mouth as Unknown 0.6mg Tablets needed for gout Fluticasone Propionate 2 sprays each Unknown 50mcg/Act nostril qd. Suspension Gabapentin 3 by mouth Unknown 300mg Capsules daily Methylphenidate 1 by mouth every Unknown Hydrochloride ER morning and 5mg 20mg Capsules ER in the afternoon Sildenafil Citrate use an hour Unknown 100mg Tablets before sex Immunizations Description No Information Available Vital Signs Date Vital Result Comment 04/16/2019 11:43am Height 72 inches 6'0" Weight 224.00 lb Heart Rate 94 /min BP Systolic Sitting 108 mmHg Rue reg cuff BP Diastolic Sitting 86 mmHg Rue reg cuff BP Systolic Standing 106 mmHg Rue reg cuff BP Diastolic Standing 78 mmHg Rue reg cuff Respiratory Rate 12 /min BMI (Body Mass Index) 30.4 kg/m2 Ejection Fraction 65% 06/17/2007 ECHO 04/08/2019 9:19am Height 72 inches 6'0" Weight 224.00 lb BP Systolic 124 mmHg BP Diastolic 80 mmHg Pain Level 6 BMI (Body Mass Index) 30.4 kg/m2 Results Test Date Facility Test Result H/L Range Note CBC No Diff 04/09/2019 [facility] White Blood 8.0 10^3/uL Normal 3.5-10.[address] [place] [address] [phone] Red Blood Count 4.53 10^6/uL Normal 4.18-5.48 Hemoglobin 15.0 g/dL Normal 14.0-18.0 Hematocrit 43 % Normal 42-52 Mean Corpuscular Volume 94 fL Normal 80-94 Mean Corpuscular Hemoglobin 33 pg High 27-31 Mean Corpuscular HGB Conc 35 g/dL Normal 31-36 Red Cell Distribution Width 13 % Normal 10-15 Platelet Count 181 10^3/uL Normal 150-450 Mean Platelet Volume 9.0 fL Normal 7.4-10.4 Inr/Protime 04/09/2019 [facility] Inr 0.98 Normal 0.82-1.09 [address] [place] [address] [phone] Laboratory test 04/09/2019 [facility] Partial 34.9 Normal 26.0 -38.0 finding [address] [facility] [place] [address] Time PTT [phone] Urinalysis 04/09/2019 [facility] Urine Color Yellow Profile [address] [place] [address] [phone] Urine Appearance Clear Urine Specific [place] 1.027 Normal 1.010-1.030 Urine pH 5.0 Normal 5-9 Urine Urobilinogen Negative Negative Urine Ketones Trace Abnormal Negative Urine Protein Negative Negative Urine Leukocytes Negative Negative Urine Blood Negative Negative * * Abnormal Negative 2 Urine Nitrite Negative Negative Urine Bilirubin Negative Negative Urine Glucose 3+(>=500 mg/dL) Abnormal Negative Basic Metabolic 04/09/2019 [facility] Sodium 140 mmol/L Normal 135-[address] [place] [address] [phone] Potassium 4.0 mmol/L Normal 3.5-5.0 Chloride 99 mmol/L Low 101-111 Co2 Carbon Dioxide 29 mmol/L Normal 22-32 Anion Gap 12 mmol/L High 2-11 Glucose 151 mg/dL High 70-100 Blood Urea Nitrogen 14 mg/dL Normal 6-24 Creatinine 0.92 mg/dL Normal 0.67-1.17 BUN/Creatinine Ratio 15.2 Normal 8-20 Calcium 10.2 mg/dL Normal 8.6-10.3 Egfr Non- 80.6 >60 Egfr 97.6 >60 3 Type & Screen 04/09/2019 [facility] Patient Blood Type A Positive [address] [place] [address] [phone] Antibody Screen NEGATIVE 1 Standard intensity warfarin therapeutic range: 2.0-3.0 High intensity warfarin therapeutic range: 2.5-3.5 2 *Ascorbic acid is present which may interfere with detection of blood. 3 Because ethnic data is not always readily available, this report includes an eGFR for both -Americans and non- Americans. The National Kidney Disease Education Program (NKDEP) does not endorse the use of the MDRD equation for patients that are not between the ages of 18 and 70, are , have extremes of body size, muscle mass, or nutritional status, or are non- or non-. According to the National Kidney Foundation, irrespective of diagnosis, the stage of the disease is based on the level of kidney function: Stage Description GFR(mL/min/1.73 m(2)) 1 Kidney damage with normal or decreased GFR 90 2 Kidney damage with mild decrease in GFR 60-89 3 Moderate decrease in GFR 30-59 4 Severe decrease in GFR 15-29 5 Kidney failure <15 (or dialysis) Procedures Date Code Description Status 04/16/2019 57993 EKG Tracing & Interpretation Completed Medical Devices Description No Information Available Encounters Type Date Location Provider Dx Diagnosis Office Visit 04/16/2019 [facility] Clint Sun Z01.810 Encounter for 12:00p Of Vijaya Ulrich DO FACC preprocedural cardiovascular examination E11.9 Type 2 diabetes mellitus without complications I10 Essential (primary) hypertension E78.5 Hyperlipidemia, unspecified F17.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, unspecified, in remission Office 02/02/2019 [facility] M43.16 Spondylolisthesis, Visit 11:00a [facility] V[facility]aya Gallego MD lumbar region M47.26 Other spondylosis with radiculopathy, lumbar region M48.061 Spinal stenosis, lumbar region without neurogenic william Assessments Date Code Description Provider 04/16/2019 Z01.810 Encounter for preprocedural Clint Ulrich DO FACBenitez cardiovascular examination 04/16/2019 E11.9 Type 2 diabetes mellitus without Clint Ulrich DO FACC complications 04/16/2019 I10 Essential (primary) hypertension Clint Ulrich DO FACC 04/16/2019 E78.5 Hyperlipidemia, unspecified Clint Ulrich DO FACC 04/16/2019 F17.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, unspecified, in Clint Ulrich DO FACC remission 04/08/2019 M43.16 Spondylolisthesis, lumbar region Aditya Gallego MD 04/08/2019 M47.26 Other spondylosis with radiculopathy, Aditya aGllego MD lumbar region 04/08/2019 M48.061 Spinal stenosis, lumbar region without Aditya Gallego, neurogenic claudicati 02/17/2019 M43.16 Spondylolisthesis, lumbar region Aditya Gallego, 02/17/2019 M47.26 Other spondylosis with radiculopathy, Aditya Gallego MD lumbar region 02/17/2019 M48.061 Spinal stenosis, lumbar region without Aditya Gallego, neurogenic claudicati 02/02/2019 M43.16 Spondylolisthesis, lumbar region Aditya Gallego, 02/02/2019 M47.26 Other spondylosis with radiculopathy, Aditya Gallego MD lumbar region 02/02/2019 M48.061 Spinal stenosis, lumbar region without Aditya Gallego, neurogenic claudicati Plan of Treatment Future Appointment(s):05/27/2019 8:30 am - Aditya Gallego MD at [facility]07/17/2019 9:00 am - Aditya Gallego MD at [facility]04/21/2019 7:30 am - IDRIS Salazar at [facility]04/21/2019 7:30 am - Aditya Gallego MD at [facility]04/16/2019 - Clint Ulrich DO FACCZ01.810 Encounter for preprocedural cardiovascular examinationFollow up:PRNE11.9 Type 2 diabetes mellitus without [id number] Essential (primary) hajjkextkrecE58.5 Hyperlipidemia, abryvwwezalY96.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, unspecified, in remission Functional Status Description No Information Available Mental Status Description No Information Available Referrals Description No Information Available
[2019-04-21] MEDS ORDERED: Lactated Ringers 1000 ML Bag* 1,000 ML IV SCH ×2 (06:00→14:00)
[2019-04-21] MEDS ORDERED: ceFAZolin 2 GM in NS PREMIX(*) 2 GM/100 ML BAG IVPB ONE ×2 (06:29→12:08)
[2019-04-21] MEDS ORDERED: Buffered Lidocaine 1% SYRIN* 1 ML/SYRINGE INTRADERM ONE (06:29)
[2019-04-21] MEDS ORDERED: fentaNYL* 50 MCG/ML 2 ML VIAL (100 MCG VIAL) ONE ×3 (07:15→14:04)
[2019-04-21] MEDS ORDERED: Midazolam* 1 MG/ML 2 ML VIAL (2 MG) ONE ×2 (07:15→07:49)
[2019-04-21] MEDS ORDERED: Thrombin 5,000 UNITS* 1 APPLIC KIT - topical use - TOPICAL ONE (07:18)
[2019-04-21] MEDS ORDERED: Bupivacaine 0.25% W/EPI* 10 ML SDV ONE ×2 (07:18→09:04)
[2019-04-21] MEDS ORDERED: Bacitracin INJECTION* 50,000 UNITS ONE ×2 (07:18→11:44)
[2019-04-21] MEDS ORDERED: Famotidine IV* 10 MG/ML 2 ML (20 mg) ONE (07:27)
[2019-04-21] MEDS ORDERED: Artificial Tear OPHTH.OINT* 3.5 GM ONE (07:43)
[2019-04-21] MEDS ORDERED: Dexamethasone IV* 4 MG/ML 1 ML (4 MG) ONE (07:47)
[2019-04-21] MEDS ORDERED: Propofol* 10 MG/ML 20 ML BTL ONE ×2 (07:47→11:35)
[2019-04-21] MEDS ORDERED: Succinylcholine* 20 MG/ML 10 ML VIAL ONE (07:47)
[2019-04-21] MEDS ORDERED: Cisatracurium* 2 MG/ML MDV 5 ML ONE (07:48)
[2019-04-21] MEDS ORDERED: EPHEDrine (Pressors)* 50 MG/ML VIAL ONE (08:25)
[2019-04-21] MEDS ORDERED: Phenylephrine 10 MG/ML VIAL* 1 ML VIAL ONE (08:36)
[2019-04-21] MEDS ORDERED: Propofol* 500 MG/50 ML BTL ONE (08:36)
[2019-04-21] MEDS ORDERED: VASOPRESSIN 20 UNITS/ML 1 ML VIAL ONE (08:36)
[2019-04-21] MEDS ORDERED: Lidocaine 2% PF * 5 ML VIAL ONE (08:36)
[2019-04-21] MEDS ORDERED: Naloxone* 0.4 MG/ML 1 ML VIAL IV PRN (09:33)
[2019-04-21] MEDS ORDERED: DiMENhydriNATE IV* 50 MG/ML VIAL IV PUSH PRN (09:33)
[2019-04-21] MEDS ORDERED: Ondansetron INJ* 2 MG/ML VIAL IV PRN (09:33)
[2019-04-21] MEDS ORDERED: fentaNYL* 50 MCG/ML 2 ML VIAL (100 MCG VIAL) IV PRN (09:33)
[2019-04-21] MEDS ORDERED: Acetaminophen IV 1GM/100ML * 100 ML ONE (10:19)
[2019-04-21] MEDS ORDERED: Magnesium Hydroxide LIQ* 30 ML UDC PO PRN (13:45)
[2019-04-21] MEDS: fentaNYL* 50 MCG/ML 2 ML VIAL (100 MCG VIAL) IV PRN ×4 (14:06→14:40)
[2019-04-21] MEDS ORDERED: Fluticasone NASAL SPRAY 50MCG* 16 gm SPRAY BTL BOTH NARES PRN (14:08)
[2019-04-21] MEDS ORDERED: Dextrose 50% VIAL 50 ml IV PUSH PRN (14:10)
[2019-04-21] MEDS ORDERED: Insulin LISPRO* 1 UNITS UNIT SUBCUT ONE (14:47)
[2019-04-21] MEDS: Insulin LISPRO* 1 UNITS UNIT SUBCUT SCH ×2 (14:48→20:59)
[2019-04-21] MEDS: Cyclobenzaprine TAB* 10 MG PO PRN (15:50)
[2019-04-21] MEDS: oxyCODONE TAB* 5 MG TAB PO PRN (20:43)
[2019-04-21] MEDS: Methylphenidate TAB* 10 MG PO SCH (20:43)
[2019-04-21] MEDS: CMCS: Febuxostat(NF) 40 MG TAB PO SCH (20:44)
[2019-04-21] MEDS: Gabapentin CAP(*) 300 MG PO SCH (20:44)
--- NOTE | 2019-04-22 01:57 | OP ---
DATE OF OPERATION: 04/21/19 - ROOM #340 DATE OF : 45 SURGEON: Aditya Gallego M.D. ADULT DAY CARE WORKER: Bassam Kenney, surgical PA. The case was done with the assistance of surgical PA because of the complexity of the case. ANESTHESIA: General. PRE-OP DIAGNOSES: Degenerative disc disease and spondylolisthesis with severe stenosis at L4-L5. POST-OP DIAGNOSIS: Degenerative disc disease and spondylolisthesis with severe stenosis at L4-L5. OPERATIVE PROCEDURE: The patient underwent left, minimally invasive L4-L5 TLIF with ipsi-contralateral laminectomy for decompression, right iliac crest bone graft harvesting through separate a incision, insertion of PEEK interbody cage, DBX, locally harvested autologous bone graft for the arthrodesis, and pedicle screws at L4 and L5 bilaterally with intraoperative navigation and intraoperative monitoring. ESTIMATED BLOOD LOSS: 30 cc. COMPLICATIONS: None. SUMMARY: The patient is a very pleasant 73-year-old gentleman with complaints of severe back pain radiating into the left lower extremity. The patient had MRI findings consistent with grade 1 spondylisthesis at L4-5, severe stenosis, and neural foraminal stenosis. After failing conservative treatment modalities , he was offered the option of surgical intervention in the form of left L4-5 MIS TLIF. After explaining the expectations, limitations, and possible complications to the patient and his , with complications including, but not limited to bleeding, infection, risk of injury to adjacent structures, coma , paralysis, , need for additional procedures, anesthesia risks, stroke, blindness, cancer, instability, hardware failure, adjacent level disease, pseudoarthrosis, spinal fluid leak, loss of bladder or bowel control, injury to intraabdominal contents, hardware malposition, peripheral neuropathy, deep venous thrombosis, scar tissue formation, anesthesia risk, the patient was agreeable to proceed with surgery and informed consent was obtained. The patient understood that his condition may not improve and in fact may get worse after surgery and that he may need to have additional procedures in the future. The patient also understood that operative plan may be modified according to intraoperative findings and conditions and that the case may be abandoned or done in more than one stage. The patient understands that he may require prolonged ICU stay, need for tracheostomy or gastrostomy, prolonged rehabilitation or prolonged hospitalization, and additional procedures in the future. DESCRIPTION OF PROCEDURE: The patient was brought to the operating room and was placed under general anesthesia by the anesthesia team. He was carefully turned prone on the Castillo table and all bony prominences were meticulously padded. His skin was prepped and draped in a standard fashion. After appropriate surgical pause and patient identification, a small incision over the right iliac crest was performed with a #10 surgical blade after infiltrating the skin with local anesthetic, Marcaine with epinephrine was used. With the assistance of a Jamshidi needle, the Corex needle was inserted and bone graft was harvested. This was saved for the arthrodesis part of the procedure. Through the same stab wound incision, the percutaneous pin for the navigation star was secured in place and intraoperative O-arm imaging was obtained. The patient's data was transferred to the navigation platform and with the use of stereotactic navigation the projection of the pedicles of L4 and L5 on the skin were marked. Two small incisions were marked over the L4-5 disc space and after infiltrating the skin with local anesthetic, a #10 surgical blade was used to perform the incisions. With the use of stereotactic navigation, the pedicles of L4 and L5 were cannulated, tapped, and Medtronic Voyager ATS screws were inserted in both levels. A 6.5 x 45 mm screws were used in all levels. Then attention was brought to insert the METRx retractor system. A separate incision on the fascia was performed with a #10 surgical blade and over a series of dilators the METRx tubular retractor was introduced into the field under stereotactic navigation. This was docked over the left L4- 5 facet and the left melo-lamina. Then intraoperative microscope was brought into the field. The left melo-lamina was then gently exposed after removal of the remaining soft tissue as well as the medial border of the facet. A high speed drill was used to fashion a medial facetectomy and laminectomy at L4. The laminectomy was extended towards the other side to achieve excellent decompression and to allow for better visualization of the thecal sac and the ligamentum flavum. A very thickened and adhered ligamentum flavum was encountered at the level of the left L4- 5 facet. Meticulous neurolysis was performed in order to gently dissect the ligamentum flavum and expose the dura and nerve root and perform adequate decompression. The L5 nerve root was carefully identified, and the thecal sac and the nerve root gently retracted medially with a nerve root retractor. After incising the annulus fibrosus with a #11 surgical blade, the disc space was prepared after performing an excellent discectomy and preparation of the endplates with the use of pituitary rongeurs, Kerrison punches, curettes, and serial dilators. After appropriate sizing of the disc space, it was elected to insert a 9-mm Elevate expandable cage, a 9 x 28 mm expandable cage, which was filled with locally harvested bone graft during the laminectomy and facetectomy part of the procedure, iliac crest bone graft, and DBX putty. Prior to insertion of the Elevate cage, the prepared disc space was packed with a mixture of the bone graft. After insertion of the Elevate cage, this was gently expanded, and after confirmation of meticulous hemostasis, excellent decompression was identified and the thecal sac was free of any pressure phenomenon. After meticulous inspection, the tubular retractor was gently removed and the paraspinal musculature was infiltrated with Marcaine. Then the dorsal facial defect was approximated with interrupted 0 Vicryl sutures. Attention was then brought to insert two cobalt-chrome rods through the same stab wound incisions. Intraoperative O-arm imaging confirmed excellent placement of all hardware. The left L4 screw was found to be having a slightly medial trajectory and it was elected to remove it to check the pedicle screw trajectory to confirm that there was no breach. No breach was identified. The screw was repositioned and final intraoperative O-arm imaging confirmed excellent placement of all hardware. Then, the screw head caps were finally tightened and the extension towers were gently removed as well as the navigation pin. After copious irrigation, all wounds were closed by layers with 0 interrupted Vicryl sutures to approximate the dorsal fascia and 2-0 inverted interrupted Vicryl sutures to approximate the subcutaneous tissue. The skin was covered with Dermabond. At the end of the procedure, all counts were reported to be correct. The patient remained hemodynamically stable throughout the case and intraoperative electrophysiological monitoring remained stable throughout the case. The patient was then turned supine, was extubated and was transferred to Recovery in excellent condition. The case was done with the assistance of kelsy STEINBERG because of the complexity of the case. [id number]/[facility] #: [id number] EFRAIN
[2019-04-22] MEDS: oxyCODONE TAB* 5 MG TAB PO PRN ×5 (03:57→22:33)
--- NOTE | 2019-04-22 08:26 | PN ---
Progress Note - Progress Note Date of Service: 04/22/19 SOAP: Subjective: [] 73 y/o male post TLIF at L4/L5 POD #1 patient has been stable over night with no acute events. He has some post procedure discomfort, but overall doing well. I spoke with his nurse this morning, who reports that he attempted to walk last , but was a little unstable. Presently he has does notice any changes in his back or leg pain. Overall patient is doing well, still needs to be evaluated by medicine. Objective: [] Initial Vitals Temp Pulse Resp BP Pulse Ox 98.6 F 85 18 133/72 94 04/09/19 10:33 04/09/19 10:33 04/09/19 10:33 04/09/19 10:33 04/09/19 10:33 Physical Exam: General: Patient laying in bed on his side comfortable, NAD Neuro: A&O x3 CN II - XII grossly intact, EOM intact, pupils are equal, Upper extremity motor strength intact 5/5, lower extremity motor strength 5/5 bilaterally. Derm: Wound C/D/I no drainage seen on dressings. Assessment: [] 73 y/o male post L4/L5 TLIF patient is doing well at this time till needs to work with PT/OT this morning, will consider possible discharge. Plan: [] 1) Follow up with Dr. Desai's recommendation's for medical management 2) Follow up with Post Op X rays 3) pain control as needed 4) Walk with PT/OT 5) Discharge planning 6) Wear LSO brace when out of bed
--- NOTE | 2019-04-22 08:47 | PN ---
Subjective - Subjective Reason for Note: Consultation Note History: Javon Allred is a primary care and diabetes patient at my office. He is 1 day of L4/5 laminectomy/Transforaminal lumbar interbody fusion. He tolerated the procedure well and ate a large meal. His glycemic control has been poor since surgery with glucose levels in the 200s. He has pain when he moves, but not at rest. He otherwise is feeling well. He has been hemodynamically stable and has had a good urine output Active Problems: Active Problems Hyperglycemia (Acute) R73.9 S/P lumbar laminectomy (Acute) Z98.890 BPH (benign prostatic hypertrophy) (Chronic) N40.0 Depression (Chronic) F32.9 Gout (Chronic) M10.9 Hypercholesteremia (Chronic) E78.0 Hypertension (Chronic) I10 Type 2 diabetes mellitus, uncontrolled (Chronic) E11.65 Current Medications: Current Medications Atorvastatin Calcium (Lipitor*) 40 mg PO QAM [facility] Cholecalciferol (Vitamin D Tab*) 2,000 units PO QAM [facility] Cyclobenzaprine HCl (Flexeril Tab*) 10 mg PO TID PRN PRN Reason: SPASMS Last Admin: 04/21/19 15:50 Dose: 10 mg Dextrose (Dextrose 50% Vial 50 Ml*) 25 ml IV PUSH .FOR FS < 60 - SS PRN PRN Reason: FS < 60 Febuxostat (Uloric(Nf)) 40 mg PO BEDTIME [facility] Last Admin: 04/21/19 20:44 Dose: 40 mg Fluticasone Propionate (Flonase Nasal [place] 50mcg*) 2 spray BOTH NARES DAILY PRN PRN Reason: allergies Gabapentin (Neurontin Cap(*)) 300 mg PO TID [facility] Last Admin: 04/21/19 20:44 Dose: 300 mg Lactated Ringer's (Lactated Ringers 1000 Ml Bag*) 1,000 mls @ 75 mls/hr IV .per rate [facility] Insulin Human Lispro (Humalog*) 0 units SUBCUT ACHS [facility]; Protocol Last Admin: 04/21/19 20:59 Dose: 10 units Losartan Potassium (Cozaar Tab*) 50 mg PO QAM [facility] Magnesium Hydroxide (Milk Of Magnesia Liq*) 30 ml PO DAILY PRN PRN Reason: CONSTIPATION Methylphenidate HCl (Ritalin Tab*) 20 mg PO BID [facility] Last Admin: 04/21/19 20:43 Dose: Not Given Oxycodone HCl (Roxycodone Tab*) 5 mg PO Q4H PRN PRN Reason: moderate pain Last Admin: 04/22/19 07:46 Dose: 5 mg Tamsulosin HCl (Flomax Cap*) [facility] [place] [facility] of Systems Constitutional Symptoms: No: Fever, Night Sweats Pulmonary: Negative: Cough, Sputum, Respiratory Distress, Shortness of Breath Cardiology: Negative: Chest Pain, Palpitations, Swelling of Ankles Gastroenterology: Positive: Constipation - no bowel movements since surgery Negative: Abdominal Pain, Nausea, Vomiting Genital - Urinary: Negative: Dysuria Neurology: Positive: Numbness\Paresthesiae - peripheral neuropathy Negative: Headache, Dizziness, Change in Speech, Unexplained Weakness Home Medications: Home Medications Medication Instructions Recorded Confirmed Type Gabapentin CAP(*) [Neurontin 100 300 mg PO TID 04/27/18 04/21/19 History mg CAP(*)] Naproxen Sodium [Aleve] 2 cap PO QAM 04/27/18 04/21/19 History glipiZIDE [Glipizide] 5 mg PO BID 04/27/18 04/21/19 History Cholecalciferol TAB* [Vitamin D 2,000 units PO QAM 10/13/18 04/21/19 History TAB*] Duloxetine HCl 60 mg PO QAM 10/13/18 04/21/19 History Fluticasone NASAL SPRAY 50MCG* 2 spray BOTH NARES DAILY PRN 10/13/18 04/21/19 History [Flonase NASAL SPRAY 50MCG*] Methylphenidate HCl 20 mg PO BID 10/13/18 04/21/19 History [Methylphenidate HCl ER] Sildenafil Citrate [Viagra] 100 mg PO DAILY PRN 10/13/18 04/21/19 History Vitamin B Complex CAP* [B Complex 1 cap PO QAM 10/13/18 04/21/19 History CAP*] hydroCHLOROthiazide 12.5 mg PO QAM 10/13/18 04/21/19 History [Hydrochlorothiazide] Tamsulosin CAP* [Flomax CAP*] 0.4 mg PO QAM 12/05/18 04/21/19 History Atorvastatin Calcium [Lipitor] 40 mg PO QAM 04/09/19 04/21/19 History Febuxostat 40 mg PO BEDTIME 04/09/19 04/21/19 History Losartan Potassium [Cozaar] 50 mg PO QAM 04/09/19 04/21/19 History Allergies: Allergies Allergy/AdvReac Type Severity Reaction Status Date / Time amlodipine Allergy Dizziness Verified 04/21/19 06:38 levofloxacin Allergy SEVERE Verified 04/21/19 06:38 NEUROPATHY IN LEGS metformin Allergy Dizziness Verified 04/21/19 06:38 metoprolol Allergy Dizziness Verified 04/21/19 06:38 shellfish derived Allergy Airway Verified 04/21/19 06:38 Obstruction Sulfa (Sulfonamide Allergy Anaphylatic Verified 04/21/19 06:38 Antibiotics) Shock verapamil Allergy Dizziness Verified 04/21/19 06:38 NUTS Allergy Shortness Uncoded 04/21/19 06:38 of Breath Objective - Vital Signs Vital Signs: Vital Signs 04/21/19 04/21/19 04/21/19 13:37 13:38 13:40 Temperature 97.7 F Pulse Rate 94 94 Respiratory Rate Blood Pressure 154/86 (mmHg) O2 Sat by Pulse 98 98 Oximetry 04/21/19 04/21/19 04/21/19 13:41 13:46 13:51 Temperature Pulse Rate 94 93 95 Respiratory 13 17 10 Rate Blood Pressure 132/86 111/69 137/74 (mmHg) O2 Sat by Pulse 98 97 93 Oximetry 04/21/19 04/21/19 04/21/19 13:55 14:00 14:01 Temperature Pulse Rate 95 93 91 Respiratory 12 14 16 Rate Blood Pressure 132/90 123/66 (mmHg) O2 Sat by Pulse 92 91 92 Oximetry 04/21/19 04/21/19 04/21/19 14:06 14:13 14:14 Temperature Pulse Rate Respiratory 18 16 Rate Blood Pressure (mmHg) O2 Sat by Pulse 95 Oximetry 04/21/19 04/21/19 04/21/19 14:16 14:25 14:30 Temperature Pulse Rate 89 88 Respiratory 9 16 Rate Blood Pressure 142/92 145/85 (mmHg) O2 Sat by Pulse 94 93 Oximetry 04/21/19 04/21/19 04/21/19 14:40 14:45 16:23 Temperature Pulse Rate 85 77 Respiratory 16 12 16 Rate Blood Pressure 142/83 161/83 (mmHg) O2 Sat by Pulse 93 99 Oximetry 04/21/19 04/21/19 04/21/19 17:19 18:36 20:00 Temperature 97.3 F Pulse Rate 74 Respiratory 16 16 16 Rate Blood Pressure 147/84 (mmHg) O2 Sat by Pulse 98 Oximetry 04/21/19 04/21/19 04/21/19 20:43 20:44 22:12 Temperature 98.9 F Pulse Rate 84 Respiratory 19 19 19 Rate Blood Pressure 127/67 (mmHg) O2 Sat by Pulse 93 Oximetry 04/21/19 04/22/19 04/22/19 23:49 00:29 00:30 Temperature 97.9 F Pulse Rate 83 Respiratory 16 18 18 Rate Blood Pressure 127/69 (mmHg) O2 Sat by Pulse 94 Oximetry 04/22/19 04/22/19 04/22/19 03:51 03:57 05:59 Temperature 97.9 F Pulse Rate 83 Respiratory 17 20 Rate Blood Pressure 154/76 (mmHg) O2 Sat by Pulse 97 97 Oximetry 04/22/19 04/22/19 04/22/19 06:29 07:46 07:50 Temperature 99.1 F Pulse Rate 75 Respiratory 18 16 16 Rate Blood Pressure 144/75 (mmHg) O2 Sat by Pulse 97 Oximetry - Intake and Output Intake and Output: Intake & Output 04/19/19 04/20/19 04/21/19 04/22/19 11:59 11:59 11:59 11:59 Intake Total 1800 Output Total 835 Balance 965 Weight 228 lb Intake: Oral 1800 Output: Urine 805 Estimated Blood Loss 30 Other: Estimated Void Small ADLs: Meal Record Start: 04/21/19 15: 33 Freq: Status: Active Protocol: Created 04/21/19 15:33 [id number] (Rec: 04/21/19 15:33 [id number]) Intake and Output Start: 04/21/19 15: 33 Freq: DAILY@0600,1400,2200 Status: Active Protocol: Created 04/21/19 15:33 [id number] (Rec: 04/21/19 15:33 [id number]) Document 04/21/19 19:14 [id number] (Rec: 04/21/19 19:14 [id number]) Document 04/21/19 22:15 [id number] (Rec: 04/21/19 22:16 [id number] [id number]) Document 04/21/19 22:17 [id number] (Rec: 04/21/19 22:17 [id number] SSU-[id number]) Document 04/22/19 05:33 [id number] (Rec: 04/22/19 05:34 [id number] SSU-L02) Document 04/22/19 05:34 [id number] (Rec: 04/22/19 05:34 [id number]) - Physical Exam General Physical Exam Comment: Warm and well perfused. He is lying comfortably in bed and is fully conversational and insightful General: No Cyanosis, No Anemia, No Jaundice, No Clubbing Eye Exam: bilateral: EOMI Thyroid Function: Clinically Euthyroid -: No Goiter Endocrine: Yes Central Obesity, No Acromegaly, No Vitiligo, No Flushing, No Acanthosis nigricans, No Violaceious striae, No [place] Syndrome Lungs and Chest: Yes: Chest Expansion Full, Chest Expansion Symetrica, Percussion Note Resonant, Vessicular Breath Sounds. No: Crackles, Wheezes Heart Rate and Rhythm: Regular Additional Cardiovascular: Yes: Normal Heart Sounds. No: Heart Murmur, Pedal Edema Abdominal Exam: Yes: Soft, Bowel Sounds Present. No: Distention, Abdominal Mass , Rebound Tenderness - Extremities Cranial Nerves II-XII Intact: Yes Limbs: Abnormal Power - wary about lifting legs due to fear of pain - Neuro Orientation: A/O x3 Psychiatric: Normal Speech: Normal Results - Results Lab Results: Laboratory Results - last 24 hr 04/21/19 04/21/19 04/22/19 13:58 20:53 07:48 POC Glucose (mg/dL) 286 H 352 H 184 H Assessment - Problem List Assessment: Patient Problems Hyperglycemia (Acute) S/P lumbar laminectomy (Acute) BPH (benign prostatic hypertrophy) (Chronic) Depression (Chronic) Gout (Chronic) Hypercholesteremia (Chronic) Hypertension (Chronic) Type 2 diabetes mellitus, uncontrolled (Chronic) Plan: Hyperglycemia (Acute)Type 2 diabetes mellitus, uncontrolled (Chronic) He has not received his usual oral hypoglycemic agents since surgery. Pain and the stress of surgery has increased his insulin resistance. He has not taken insulin at home previously. At home he usually takes empagliflozin (jardiance) 12.5 mg daily and glipizide 5 mg twice daily. In the hospital I will give him some glargine insulin and coverage. When he gets home he will double his usual medication and check his FS 4 times per day. S/P lumbar laminectomy (Acute) He is day 1 post L4/5 laminectomy and transforaminal lumber interbody fusion. He has pain when he moves - most of this is muscular from the surgical procedure. Neurosurgery will decide when he can be discharged home depending on his mobility and ability to perform ADLs BPH (benign prostatic hypertrophy) (Chronic) I will check his post void volume Depression (Chronic) treated Gout (Chronic) inactive Hypercholesteremia (Chronic) continue usual treatment Hypertension (Chronic) this is controlled I spoke to Javon and Smomer Agrawal about the above and they agree with the plan.
[2019-04-22] MEDS ORDERED: Dextrose 50% VIAL 50 ml IV PUSH PRN (08:56)
[2019-04-22] MEDS: Atorvastatin* 40 MG TAB PO SCH (11:02)
[2019-04-22] MEDS: Cholecalciferol TAB* 1000 UNITS PO SCH (11:02)
[2019-04-22] MEDS: Tamsulosin CAP* 0.4 MG PO SCH (11:02)
[2019-04-22] MEDS: Losartan TAB* 25 MG PO SCH (11:02)
[2019-04-22] MEDS: Methylphenidate TAB* 10 MG PO SCH ×2 (11:03→21:36)
[2019-04-22] MEDS: Gabapentin CAP(*) 300 MG PO SCH ×3 (11:03→21:37)
[2019-04-22] MEDS: Insulin GLARGINE(*) 1 UNITS UNIT SUBCUT SCH (11:04)
[2019-04-22] MEDS: Cyclobenzaprine TAB* 10 MG PO PRN (11:07)
[2019-04-22] MEDS: Insulin LISPRO* 1 UNITS UNIT SUBCUT SCH ×4 (11:13→21:38)
[2019-04-22] MEDS: glipiZIDE TAB* 5 MG PO SCH (16:51)
[2019-04-22] MEDS: DULoxetine DR CAP* 60 MG CAP.DR PO SCH (16:51)
[2019-04-22] MEDS ORDERED: Acetaminophen TAB* 325 MG ONE (17:37)
[2019-04-22] MEDS ORDERED: NS 0.9% 1000 ML** 1,000 ML IV ONE (17:45)
[2019-04-22 17:59] LABS: Hematocrit 40 % (42-52); Hemoglobin 13.5 g/dL (14.0-18.0); Mean Corpuscular HGB Conc 34 g/dL (31-36); Mean Corpuscular Hemoglobin 32 pg (27-31); Mean Corpuscular Volume 95 fL (80-94); Mean Platelet Volume 8.6 fL (7.4-10.4); Platelet Count 180 10^3/uL (150-450); Red Blood Count 4.18 10^6 /uL (4.18-5.48); Red Cell Distribution Width 13 % (10-15); White Blood Count 12.7 10^3/uL (3.5-10.8)
[2019-04-22] MEDS ORDERED: LORazepam PO (enter doses in WAM protocol) PO SCH (18:00)
--- NOTE | 2019-04-22 18:00 | PN ---
Hospitalist Progress Note Date of Service: 04/22/19 Patient evaluated at the bedside after a CAT call was called. Patient was found to be hypotensive with a systolic blood pressure in the 80's initially and repeat [id number]. Patient with a fever or 102 temporally. Heart Rate 102 meeting SIRS criteria. CODE sepsis called. Nursing staff reports that the patient is slightly altered mental status, mild hand tremor. Patient with mild confusion, oriented to place and time, slight confusion to situation. skin warm to the touch, Lung sound with few crackles in the bases bilat. Abd soft and non-tender, dressing is intact to back, patient is able to move all four extremities. Pedal pulses are +1 bilat. Hand elevator operator service are equal. sepsis labs obtained, chest xray, blood cultures, UA ordered and pending. IV normal saline 1000cc bolus ordered Patient does report that he drink 2 drinks 4-5 nights a week. Labs reviewed, WBc's 12.7 patient now meets for sepsis criteria with elevated Wbc's , hr 102, [id number]. Will start Vancomycin and zosyn Dr. Desai updated. Chest x ray -no acute disease. Unclear source at this time urine pending..
[2019-04-22 18:15] LABS: Albumin 4.3 g/dL (3.2-5.2); Albumin/Globulin Ratio 1.6 (1-3); C Reactive Protein 65.12 mg/L (<8.01); Calcium 9.4 mg/dL (8.6-10.3); EGFR African American 69.1 (>60); EGFR Non-African American 57.1 (>60); Globulin 2.7 g/dL (2-4); Potassium 3.5 mmol/L (3.5-5.0); Total Bilirubin 0.8 mg/dL (0.2-1.0)
[2019-04-22 18:52] LABS: ABS Basophils 0.1 10^3/ul (0-0.2); ABS Lymphocytes 1.5 10^3/ul (1.0-4.8); ABS Monocytes 1.6 10^3/ul (0-0.8); ABS Neutrophils 9.5 10^3/ul (1.5-7.7); Eosinophil % 0.1 %; Lymphocyte % 11.7 %
[2019-04-22] MEDS ORDERED: Zosyn per Pharmacy* NOTE FOLLOW UP SCH (19:00)
[2019-04-22] MEDS ORDERED: Piperacillin/Tazobac ADVAN(*) 3.375 GM in NS 0.9% 100 ML* 100 ML IVPB ONE (19:05)
[2019-04-22] MEDS ORDERED: Vancomycin per Pharmacy* NOTE FOLLOW UP PRN (19:16)
[2019-04-22] MEDS ORDERED: Vancomycin(*) 1,500 MG in NS 0.9% 250 ML* 250 ML IVPB ONE (19:30)
--- NOTE | 2019-04-22 21:11 | PN ---
Progress Note - Progress Note Date of Service: 04/22/19 Note: Patient seen and examined. Tolerated procedure well yesterday. Ambulated this am. Voided. Reported episode of confusion tachycardia and high Temp. Vitals have improved and patient back to baseline. Had episode of urinary incontinence. VSS Afebrile Wounds s,c,d AAOx3, LYNNE, CN II-XII grossly intact. Motor 5/5 all extremities Sensory grossly intact to light touch except baseline decreased sensation bilateral feet. Rectal exam normal, goo tone, good voluntary contraction. Perineal sensation intact 73 yom POD#1 Left L4-5 TLIF Will monintor VS, Neurochecks Patient undergoing extensive sepsis work up. Fecer most likely related to atelectasis Discussed in extend with patient and his . Patient's is a Psychiatrist. She reports that patient had similar episodes of confusion in the past. Had increasingly frequent episodes of urinary incontinence in the past. Followed by Dr Galicia and [place]. Also reported daily ETOH consumption (liquor small quantity) . Last time was 6 days ago. On ETOH protocol. Will encourage ambulation, use of IS. XR revealed good placement of hardware, good alignment of spine. Appreciate IM, Dr Desai's care. Essie Gallego MD
[2019-04-22] MEDS: CMCS: Febuxostat(NF) 40 MG TAB PO SCH (21:37)
--- NOTE | 2019-04-22 22:06 | PN ---
Hospitalist Progress Note Date of Service: 04/22/19 Coverage note. Sepsis follow up. reports mental status back to normal. Pt denies symptoms. Fever resolved. HR 70s. BP 110s/50s. rrr no mgr ctab cap refill < 1 second DP pulses 2+ b/l skin warm and dry Noted with mild leukocytosis. No prior labs for comparison. Lactate 2.0 -> 1.5 Pt on continuous IVF. Morning labs ordered.
[2019-04-22 22:45] LABS: Urine Appearance Clear; Urine Bacteria Absent (Absent); Urine Bilirubin Negative (Negative); Urine Blood 2+ (Negative); Urine Color Yellow; Urine Glucose 3+(>=500 mg/dL) (Negative); Urine Ketones Negative (Negative); Urine Nitrite Negative (Negative); Urine Protein Negative (Negative); Urine Red Blood Cell 2+(6-10/hpf) (Absent); Urine Specific Gravity 1.029 (1.010-1.030); Urine Squamous Epithelial Cell Present (Absent); Urine Urobilinogen Negative (Negative); Urine White Blood Cell Absent (Absent)
[2019-04-22] MEDS ORDERED: ZOSYN 3.375 GM Q8H per EXTENDED INFUSION IVPB SCH ×2 (23:30)
[2019-04-22] MEDS ORDERED: NS 0.9% 1000 ML** 1,000 ML IV SCH (23:30)
[2019-04-23] MEDS: Acetaminophen TAB* 325 MG PO PRN ×2 (00:13→05:24)
[2019-04-23] MEDS: Cyclobenzaprine TAB* 10 MG PO PRN ×2 (00:14→09:06)
[2019-04-23] MEDS: oxyCODONE TAB* 5 MG TAB PO PRN ×4 (02:31→20:12)
[2019-04-23] MEDS: ZOSYN 3.375 GM Q6H IVPB SCH ×4 (07:15→13:14)
[2019-04-23 07:25] LABS: Calcium 8.9 mg/dL (8.6-10.3); EGFR African American 88.6 (>60); EGFR Non-African American 73.2 (>60); Potassium 3.5 mmol/L (3.5-5.0)
--- NOTE | 2019-04-23 08:25 | PN ---
Subjective - Subjective Reason for Note: Progress Note History: 2 days post laminectomy and transforaminal lumbar interbody fusion. He had an episode of altered mental state, hypovolemia, fever and met criteria for sepsis yesterday afternoon. I reviewed the notes from Elda Hay,PACKAGE COLLECTOR Dr. Aditya Gallego and Letty Baez and I appreciate their assistancve. He was started on zosyn and vancomycin. He has little insight into this episode, but is feeling improved this morning. He is conversational and aware of his situation. He denies any fever, chills or shakes. He has a mild productive cough - but not more than usual. He has no headache, mild neck stiffness. His appetite is present. He has no urinary symptoms. The back pain continues. He states he has been drinking 4 oz of vodka daily and was taking advantage of this hospital stay to quit alcohol. Active Problems: Active Problems Hyperglycemia (Acute) R73.9 S/P lumbar laminectomy (Acute) Z98.890 Alcohol abuse (Chronic) F10.10 BPH (benign prostatic hypertrophy) (Chronic) N40.0 Depression (Chronic) F32.9 Gout (Chronic) M10.9 Hypercholesteremia (Chronic) E78.0 Hypertension (Chronic) I10 Type 2 diabetes mellitus, uncontrolled (Chronic) E11.65 Current Medications: Current Medications Acetaminophen (Tylenol Tab*) 650 mg PO Q4H PRN PRN Reason: PAIN - MILD Last Admin: 04/23/19 05:24 Dose: 650 mg Atorvastatin Calcium (Lipitor*) [facility] [place] Last Admin: 04/22/19 11:02 Dose: 40 mg Cholecalciferol (Vitamin D Tab*) 2,000 units PO QAM [facility] Last Admin: 04/22/19 11:02 Dose: 2,000 units Cyclobenzaprine HCl (Flexeril Tab*) 10 mg PO TID PRN PRN Reason: SPASMS Last Admin: 04/23/19 00:14 Dose: 10 mg Dextrose (Dextrose 50% Vial 50 Ml*) 25 ml IV PUSH .FOR FS < 60 - SS PRN PRN Reason: FS < 60 Duloxetine HCl (Cymbalta Cap*) 60 mg PO DAILY [facility] Last Admin: 04/22/19 16:51 Dose: 60 mg Febuxostat (Uloric(Nf)) 40 mg PO BEDTIME [facility] Last Admin: 04/22/19 21:37 Dose: 40 mg Fluticasone Propionate (Flonase Nasal [place] 50mcg*) 2 spray BOTH NARES DAILY PRN PRN Reason: allergies Gabapentin (Neurontin Cap(*)) 300 mg PO TID [facility] Last Admin: 04/22/19 21:37 Dose: 300 mg Glipizide (Glucotrol Tab*) 5 mg PO 0800,1700 [facility] Last Admin: 04/22/19 16:51 Dose: 5 mg Lactated Ringer's (Lactated Ringers 1000 Ml Bag*) 1,000 mls @ 75 mls/hr IV .per rate [facility] Vancomycin HCl 1,500 mg/ (Sodium Chloride) 250 mls @ 166.667 mls/hr IVPB Q12H [facility] Sodium Chloride (Ns 0.9% 1000 Ml) 1,000 mls @ 75 mls/hr IV PER RATE [facility] Last Admin: 04/22/19 23:49 Dose: 75 mls/hr Piperacillin Sod/Tazobactam (Sod 3.375 gm/ Sodium Chloride) 100 mls @ 200 mls/ hr IVPB Q6H [facility] Last Admin: 04/23/19 07:15 Dose: 200 mls/hr Insulin Glargine (Lantus(*)) 24 units SUBCUT Q24H [facility] Last Admin: 04/22/19 11:04 Dose: 24 unit Insulin Human Lispro (Humalog*) 0 units SUBCUT ACHS [facility]; Protocol Last Admin: 04/22/19 21:38 Dose: 2 unit Lorazepam (Ativan Tab(*)) 0 - 6 mg PO .PER WAM PAR[employer]ETERS [facility]; Protocol Losartan Potassium (Cozaar Tab*) 50 mg PO QAM [facility] Last Admin: 04/22/19 11:02 Dose: 50 mg Magnesium Hydroxide (Milk Of Magnesia Liq*) 30 ml PO DAILY PRN PRN Reason: CONSTIPATION Methylphenidate HCl (Ritalin Tab*) 20 mg PO BID [facility] Last Admin: 04/22/19 21:36 Dose: Not Given Oxycodone HCl (Roxycodone Tab*) 5 mg PO Q4H PRN PRN Reason: moderate pain Last Admin: 04/23/19 02:31 Dose: 5 mg Pharmacy Consult (Zosyn Per Pharmacy*) 1 note FOLLOW UP .ZOSYN PER PHARMACY [facility] Pharmacy Consult (Vancomycin Per Pharmacy*) 1 note FOLLOW UP . PRN PRN Reason: PER PROTOCOL Pharmacy Profile Note (Vancomycin Trough Check) 1 note FOLLOW UP 07 ONE Stop: 04/24/19 07:31 Tamsulosin HCl (Flomax Cap*) [facility] [place] Last Admin: 04/22/19 11:02 Dose: 0.4 mg Home Medications: Home Medications Medication Instructions Recorded Confirmed Type Gabapentin CAP(*) [Neurontin 100 300 mg PO TID 04/27/18 04/21/19 History mg CAP(*)] Naproxen Sodium [Aleve] 2 cap PO QAM 04/27/18 04/21/19 History glipiZIDE [Glipizide] 5 mg PO BID 04/27/18 04/21/19 History Cholecalciferol TAB* [Vitamin D 2,000 units PO QAM 10/13/18 04/21/19 History TAB*] Duloxetine HCl 60 mg PO QAM 10/13/18 04/21/19 History Fluticasone NASAL SPRAY 50MCG* 2 spray BOTH NARES DAILY PRN 10/13/18 04/21/19 History [Flonase NASAL SPRAY 50MCG*] Methylphenidate HCl 20 mg PO BID 10/13/18 04/21/19 History [Methylphenidate HCl ER] Sildenafil Citrate [Viagra] 100 mg PO DAILY PRN 10/13/18 04/21/19 History Vitamin B Complex CAP* [B Complex 1 cap PO QAM 10/13/18 04/21/19 History CAP*] hydroCHLOROthiazide 12.5 mg PO QAM 10/13/18 04/21/19 History [Hydrochlorothiazide] Tamsulosin CAP* [Flomax CAP*] 0.4 mg PO QAM 12/05/18 04/21/19 History Atorvastatin Calcium [Lipitor] 40 mg PO QAM 04/09/19 04/21/19 History Febuxostat 40 mg PO BEDTIME 04/09/19 04/21/19 History Losartan Potassium [Cozaar] 50 mg PO QAM 04/09/19 04/21/19 History Allergies: Allergies Allergy/AdvReac Type Severity Reaction Status Date / Time amlodipine Allergy Dizziness Verified 04/21/19 06:38 levofloxacin Allergy SEVERE Verified 04/21/19 06:38 NEUROPATHY IN LEGS metformin Allergy Dizziness Verified 04/21/19 06:38 metoprolol Allergy Dizziness Verified 04/21/19 06:38 shellfish derived Allergy Airway Verified 04/21/19 06:38 Obstruction Sulfa (Sulfonamide Allergy Anaphylatic Verified 04/21/19 06:38 Antibiotics) Shock verapamil Allergy Dizziness Verified 04/21/19 06:38 NUTS Allergy Shortness Uncoded 04/21/19 06:38 of Breath Objective - Vital Signs Vital Signs: Vital Signs 04/22/19 04/22/19 04/22/19 11:03 11:07 11:10 Temperature Pulse Rate Respiratory 16 16 16 Rate Blood Pressure (mmHg) O2 Sat by Pulse Oximetry 04/22/19 04/22/19 04/22/19 11:16 12:08 13:03 Temperature 98.8 F Pulse Rate 88 Respiratory 14 16 16 Rate Blood Pressure 152/75 (mmHg) O2 Sat by Pulse 96 Oximetry 04/22/19 04/22/19 04/22/19 13:57 14:08 15:29 Temperature 99.0 F Pulse Rate 100 Respiratory 16 16 18 Rate Blood Pressure 97/55 (mmHg) O2 Sat by Pulse 92 Oximetry 04/22/19 04/22/19 04/22/19 16:00 16:51 17:20 Temperature 101.8 F Pulse Rate 102 Respiratory 16 20 Rate Blood Pressure 84/56 (mmHg) O2 Sat by Pulse 92 94 Oximetry 04/22/19 04/22/19 04/22/19 17:30 19:18 19:59 Temperature 102 F 99.6 F Pulse Rate 101 92 Respiratory 20 20 20 Rate Blood Pressure 108/60 130/61 (mmHg) O2 Sat by Pulse 93 92 Oximetry 04/22/19 04/22/19 04/22/19 21:23 21:28 21:37 Temperature 98.1 F Pulse Rate 78 Respiratory 20 18 18 Rate Blood Pressure 118/57 (mmHg) O2 Sat by Pulse 92 Oximetry 04/22/19 04/22/19 04/23/19 22:33 23:10 00:00 Temperature 99.2 F Pulse Rate 85 Respiratory 18 16 Rate Blood Pressure 148/81 (mmHg) O2 Sat by Pulse 96 96 Oximetry 04/23/19 04/23/19 04/23/19 00:12 00:14 00:21 Temperature Pulse Rate Respiratory 24 24 24 Rate Blood Pressure (mmHg) O2 Sat by Pulse Oximetry 04/23/19 04/23/19 04/23/19 01:00 01:04 02:31 Temperature 97.8 F Pulse Rate 88 Respiratory 24 17 20 Rate Blood Pressure 157/75 (mmHg) O2 Sat by Pulse 93 Oximetry 04/23/19 04/23/19 04/23/19 03:00 03:09 03:18 Temperature 98.1 F Pulse Rate 75 Respiratory 20 18 Rate Blood Pressure 162/80 (mmHg) O2 Sat by Pulse Oximetry 04/23/19 04/23/19 04/23/19 03:58 04:37 05:27 Temperature 98.4 F Pulse Rate 78 Respiratory 18 18 Rate Blood Pressure 166/89 (mmHg) O2 Sat by Pulse 96 96 Oximetry 04/23/19 04/23/19 07:25 07:39 Temperature 97.5 F Pulse Rate 78 Respiratory 18 20 Rate Blood Pressure 164/80 (mmHg) O2 Sat by Pulse 94 Oximetry - Intake and Output Intake and Output: Intake & Output 04/20/19 04/21/19 04/22/19 04/23/19 11:59 11:59 11:59 11:59 Intake Total 2040 4340 Output Total 1110 100 Balance 930 4240 Weight 228 lb Intake: IV Fluids 990 NS bolus 990 Oral 2040 3350 Output: Urine 1080 100 Estimated Blood Loss 30 Other: Estimated Void Small Medium # Bowel Movements 0 # Voids 1 ADLs: Meal Record Start: 04/21/19 15: 33 Freq: Status: Active Protocol: Created 04/21/19 15:33 [id number] (Rec: 04/21/19 15:33 [id number] SSU-M06) Document 04/22/19 10:02 [id number] (Rec: 04/22/19 10:03 [id number] SSU-C04) Document 04/22/19 14:43 [id number] (Rec: 04/22/19 14:44 [id number] SSU-C04) Intake and Output Start: 04/21/19 15: 33 Freq: DAILY@0600,1400,2200 Status: Active Protocol: Created 04/21/19 15:33 [id number] (Rec: 04/21/19 15:33 [id number] SSU-M06) Document 04/21/19 19:14 [id number] (Rec: 04/21/19 19:14 [id number] SSU-C10) Document 04/21/19 22:15 [id number] (Rec: 04/21/19 22:16 [id number] SSU-M17) Document 04/21/19 22:17 [id number] (Rec: 04/21/19 22:17 [id number] SSU-L03) Document 04/22/19 05:33 [id number] (Rec: 04/22/19 05:34 [id number] SSU-L02) Document 04/22/19 05:34 [id number] (Rec: 04/22/19 05:34 [id number] SSU-L02) Document 04/22/19 10:02 [id number] (Rec: 04/22/19 10:03 [id number] SSU-C04) Document 04/22/19 14:00 [id number] (Rec: 04/22/19 14:13 [id number] SSU-M16) Document 04/22/19 14:43 [id number] (Rec: 04/22/19 14:44 [id number] SSU-C04) Document 04/22/19 21:24 [id number] (Rec: 04/22/19 21:24 [id number] SSU-M07) Document 04/22/19 21:28 [id number] (Rec: 04/22/19 21:30 [id number] SSU-M18) Document 04/22/19 22:00 [id number] (Rec: 04/22/19 22:22 [id number] SSU-M18) Document 04/23/19 05:37 [id number] (Rec: 04/23/19 05:38 [id number] SSU-M18) - Physical Exam General Physical Exam Comment: He is warm and well perfused. He is in no distress and aware of his situation. General: No Cyanosis, No Anemia, No Jaundice, No Clubbing Skin: Normal: Rash Lungs and Chest: Yes: Chest Expansion Full, Chest Expansion Symetrica, Percussion Note Resonant, Vessicular Breath Sounds. No: Crackles, Wheezes, Respiratory Distress, Use of Accessory Muscles Heart Rate and Rhythm: Regular - hyperdynamic Additional Cardiovascular: Yes: Normal Heart Sounds. No: Heart Murmur, Pedal Edema Abdominal Exam: Yes: Soft, Bowel Sounds Present. No: Distention, Abdominal Tenderness - Extremities Cranial Nerves II-XII Intact: Yes Limbs: Normal Power - moving his arms and legs normally - Neuro Orientation: A/O x3 Psychiatric: Normal Speech: Normal Results - Results Lab Results: Laboratory Results - last 24 hr 04/22/19 04/22/19 04/22/19 12:08 16:51 17:51 WBC RBC Hgb Hct MCV MCH MCHC RDW Plt Count MPV Neut % (Auto) Lymph % (Auto) [place] % (Auto) Eos % (Auto) Baso % (Auto) Absolute Neuts (auto) Absolute Lymphs (auto) Absolute Monos (auto) Absolute Eos (auto) Absolute Basos (auto) Absolute Nucleated RBC Nucleated RBC % Sodium Potassium Chloride Carbon Dioxide Anion Gap BUN Creatinine Est GFR ( Amer) Est GFR (Non-Af Amer) BUN/Creatinine Ratio Glucose POC Glucose (mg/dL) 281 H 246 H Lactic Acid 2.0 Calcium Total Bilirubin AST ALT Alkaline Phosphatase C-Reactive Protein Total Protein Albumin Globulin Albumin/Globulin Ratio Urine Color Urine Appearance Urine pH Ur Specific [place] Urine Protein Urine Ketones Urine Blood Urine Nitrate Urine Bilirubin Urine Urobilinogen Ur Leukocyte Esterase Urine WBC (Auto) Urine RBC (Auto) Ur Squamous Epith Cells Urine Bacteria Urine Glucose 04/22/19 04/22/19 04/22/19 17:52 17:52 21:17 WBC 12.7 H RBC 4.18 Hgb 13.5 L Hct 40 L MCV 95 H MCH 32 H MCHC 34 RDW 13 Plt Count 180 MPV 8.6 Neut % (Auto) 74.7 Lymph % (Auto) 11.7 [place] % (Auto) 12.5 Eos % (Auto) 0.1 Baso % (Auto) 1.0 Absolute Neuts (auto) 9.5 H Absolute Lymphs (auto) 1.5 Absolute Monos (auto) 1.6 H Absolute Eos (auto) 0.0 Absolute Basos (auto) 0.1 Absolute Nucleated RBC 0.0 Nucleated RBC % 0.0 Sodium 134 L Potassium 3.5 Chloride 99 L Carbon Dioxide 22 Anion Gap 13 H BUN 26 H Creatinine 1.24 H Est GFR ( Amer) 69.1 Est GFR (Non-Af Amer) 57.1 BUN/Creatinine Ratio 21.0 H Glucose 247 H POC Glucose (mg/dL) Lactic Acid 1.5 Calcium 9.4 Total Bilirubin 0.80 AST 121 H ALT 63 H Alkaline Phosphatase 36 C-Reactive Protein 65.12 H Total Protein 7.0 Albumin 4.3 Globulin 2.7 Albumin/Globulin Ratio 1.6 Urine Color Urine Appearance Urine pH Ur Specific [place] Urine Protein Urine Ketones Urine Blood Urine Nitrate Urine Bilirubin Urine Urobilinogen Ur Leukocyte Esterase Urine WBC (Auto) Urine RBC (Auto) Ur Squamous Epith Cells Urine Bacteria Urine Glucose 04/22/19 04/22/19 04/23/19 21:27 22:30 06:25 WBC RBC Hgb Hct MCV MCH MCHC RDW Plt Count MPV Neut % (Auto) Lymph % (Auto) [place] % (Auto) Eos % (Auto) Baso % (Auto) Absolute Neuts (auto) Absolute Lymphs (auto) Absolute Monos (auto) Absolute Eos (auto) Absolute Basos (auto) Absolute Nucleated RBC Nucleated RBC % Sodium 138 Potassium 3.5 Chloride 104 Carbon Dioxide 24 Anion Gap 10 BUN 22 Creatinine 1.00 Est GFR ( Amer) 88.6 Est GFR (Non-Af Amer) 73.2 BUN/Creatinine Ratio 22.0 H Glucose 183 H POC Glucose (mg/dL) 192 H Lactic Acid Calcium 8.9 Total Bilirubin AST ALT Alkaline Phosphatase C-Reactive Protein Total Protein Albumin Globulin Albumin/Globulin Ratio Urine Color Yellow Urine Appearance Clear Urine pH 5.0 Ur Specific [place] 1.029 Urine Protein Negative Urine Ketones Negative Urine Blood 2+ A Urine Nitrate Negative Urine Bilirubin Negative Urine Urobilinogen Negative Ur Leukocyte Esterase Negative Urine WBC (Auto) Absent Urine RBC (Auto) 2+(6-10/hpf) A Ur Squamous Epith Cells Present A Urine Bacteria Absent Urine Glucose 3+(>=500 mg/dl) A 04/23/19 07:26 WBC RBC Hgb Hct MCV MCH MCHC RDW Plt Count MPV Neut % (Auto) Lymph % (Auto) [place] % (Auto) Eos % (Auto) Baso % (Auto) Absolute Neuts (auto) Absolute Lymphs (auto) Absolute Monos (auto) Absolute Eos (auto) Absolute Basos (auto) Absolute Nucleated RBC Nucleated RBC % Sodium Potassium Chloride Carbon Dioxide Anion Gap BUN Creatinine Est GFR ( Amer) Est GFR (Non-Af Amer) BUN/Creatinine Ratio Glucose POC Glucose (mg/dL) 186 H Lactic Acid Calcium Total Bilirubin AST ALT Alkaline Phosphatase C-Reactive Protein Total Protein Albumin Globulin Albumin/Globulin Ratio Urine Color Urine Appearance Urine pH Ur Specific [place] Urine Protein Urine Ketones Urine Blood Urine Nitrate Urine Bilirubin Urine Urobilinogen Ur Leukocyte Esterase Urine WBC (Auto) Urine RBC (Auto) Ur Squamous Epith Cells Urine Bacteria Urine Glucose Radiology Results: Patient Name: PORTER DAVILA Medical Record#: [id number] Ordering Physician: Denita Acosta PACKAGE [employer]OR Acct.#: [id number] : 1945 Age: 73 Sex: M Location: SURGICAL STAY UNIT Exam Date: 04/22/191736 ADM Status: ADM IN Order Information: CHEST AP OR PORT Accession Number: [id number] CPT: 32090 INDICATION: Possible sepsis. COMPARISON: Comparison is made with a prior study from April 09, 2019. TECHNIQUE: A portable view of the chest was obtained. FINDINGS: Cardiac and mediastinal contours appear to be within normal limits. The lungs are underinflated and grossly clear. No pleural effusion is seen. IMPRESSION: LOW LUNG VOLUMES, NO EVIDENCE FOR ACUTE FINDING. <Electronically signed by Raul Arita MD in [place]> 04/22/191805 Dictated By: Raul Arita MD Dictated Date/Time: 04/22/191804 Transcribed Date/Time: 04/22/191804 Copy to: Assessment - Problem List Assessment: Patient Problems Hyperglycemia (Acute) S/P lumbar laminectomy (Acute) Alcohol abuse (Chronic) BPH (benign prostatic hypertrophy) (Chronic) Depression (Chronic) Gout (Chronic) Hypercholesteremia (Chronic) Hypertension (Chronic) Type 2 diabetes mellitus, uncontrolled (Chronic) Sepsis (Acute) Plan: Sepsis (Acute) He had an episode of altered mental status, hypotension, fever, leukocytosis meeting sepsis criteria yesterday evening. There is no clear source for this. His chest X-ray is clear, Urinalysis normal. We await the results of the blood cultures. We started him on empiric broad spectrum antibacterials, plus vancomycin in case of Staph aureus infection. Hyperglycemia (Acute) Type 2 diabetes mellitus, uncontrolled (Chronic) This is improving. I will increase the dose of glipizide, but otherwise leave the insulin therapy alone. S/P lumbar laminectomy (Acute) Per Dr. Gallego Alcohol abuse (Chronic) He is on the [facility] protocol. BPH (benign prostatic hypertrophy) (Chronic) He had some loss of control of his bladder. He has a previous history of prostatitis. He has no specific symptoms of this. Secondary diagnoses Depression (Chronic) Gout (Chronic) Hypercholesteremia (Chronic) Hypertension (Chronic) I explained to the patient and his Sommer that he had an episode of sepsis and that the sight of origin for this is obscure. We need to maintain IV antibacterials to ensure there is no spread of infection to his new hardware from his neurosurgery. Dr. Gallego will evaluate whether there is an incipient wound infection. He requires acute hospitalization during this treatment.
[2019-04-23] MEDS: DULoxetine DR CAP* 60 MG CAP.DR PO SCH (09:03)
[2019-04-23] MEDS: Atorvastatin* 40 MG TAB PO SCH (09:04)
[2019-04-23] MEDS: Tamsulosin CAP* 0.4 MG PO SCH (09:04)
[2019-04-23] MEDS: Cholecalciferol TAB* 1000 UNITS PO SCH (09:05)
[2019-04-23] MEDS: Gabapentin CAP(*) 300 MG PO SCH ×3 (09:05→21:39)
[2019-04-23] MEDS: Losartan TAB* 25 MG PO SCH (09:05)
[2019-04-23] MEDS: Methylphenidate TAB* 10 MG PO SCH ×2 (09:05→20:25)
[2019-04-23] MEDS: Vancomycin(*) 1,500 MG in NS 0.9% 250 ML* 250 ML IVPB SCH ×2 (09:09→23:41)
[2019-04-23] MEDS: Insulin GLARGINE(*) 1 UNITS UNIT SUBCUT SCH (09:12)
[2019-04-23] MEDS: Insulin LISPRO* 1 UNITS UNIT SUBCUT SCH ×4 (09:12→21:40)
[2019-04-23] MEDS: glipiZIDE TAB* 5 MG PO SCH ×2 (09:15→17:38)
--- NOTE | 2019-04-23 11:13 | PN ---
Progress Note - Progress Note Date of Service: 04/23/19 SOAP: Subjective: []Patient is doing better this morning, he confusion has improved as is oriented to time place and date. He has been unstable on his feet and requires at least two assist when doing transfers. There is some suspicion that he has possible sepsis, he has completed a panel of labs including a urine analysis that did not show any signs of infection. This morning patient is better spirits and reports that the sensation in his leg is starting to return. At this time he has not worked with PT. He attempted the stairs yesterday, but has some difficulty. Objective: [] Initial Vitals Temp Pulse Resp BP Pulse Ox 98.6 F 85 18 133/72 94 04/09/19 10:33 04/09/19 10:33 04/09/19 10:33 04/09/19 10:33 04/09/19 10:33 Physical Exam: General: Patient is sitting upright comfortable in chair. NAD A&O x3 CN II - XII grossly intact, EOM intact, pupils are equal, Upper extremity motor strength intact 5/5, lower extremity motor strength 5/5 bilaterally. Derm: Wound C/D/I no drainage seen on dressings. Assessment: [] 73 y/o post TLIF L4/L5 POD#2 he is more alert today, has been worked up for sepsis, labs are normal. He continues to be unsteady with transfers from bed to chair and has not demonstrated if he can walk up and down stairs. His is recovering well, may possible need rehab. Plan: [] 1) Encourage to use incentive spirometer 2) Walk with PT/OT 3) Follow medicine recommendations 4) D/C planning 5) Possible D/C to PMRU
--- NOTE | 2019-04-23 14:44 | PN ---
Progress Note - Progress Note Date of Service: 04/23/19 Note: Neurosurgery team was informed that patient was retaining urine, a bladder scan was completed showing he retained 750 ml. The order was given to place a Coto cath. Urology was consulted, Dr. Asher recommends keeping the Coto cath in and patient can be discharged with coto. Also recommend patient to to start Flomax 0.4mg Q day. Once patient is discharged urology should be notified and they will follow him as an outpatient. Left message with Dr. Desai to inform him of this situation.
[2019-04-23 14:53] LABS: Urine Appearance Clear; Urine Bacteria Absent (Absent); Urine Bilirubin Negative (Negative); Urine Blood 1+ (Negative); Urine Color Yellow; Urine Glucose 3+(>=500 mg/dL) (Negative); Urine Ketones Trace (Negative); Urine Nitrite Negative (Negative); Urine Protein Negative (Negative); Urine Red Blood Cell Trace(0-2/hpf) (Absent); Urine Specific Gravity 1.025 (1.010-1.030); Urine Urobilinogen Negative (Negative); Urine White Blood Cell Absent (Absent)
[2019-04-23] MEDS: ZOSYN 3.375 GM Q8H per EXTENDED INFUSION IVPB SCH ×2 (17:36)
[2019-04-23] MEDS: LORazepam PO 0-6 for WAM protocol PO SCH (20:38)
[2019-04-23] MEDS: CMCS: Febuxostat(NF) 40 MG TAB PO SCH (21:40)
[2019-04-24] MEDS: ZOSYN 3.375 GM Q8H per EXTENDED INFUSION IVPB SCH ×6 (02:51→18:05)
[2019-04-24] MEDS: LORazepam PO 0-6 for WAM protocol PO SCH (04:11)
[2019-04-24] MEDS: Acetaminophen TAB* 325 MG PO PRN ×2 (04:58→14:38)
[2019-04-24] MEDS ORDERED: Vancomycin Trough Check NOTE FOLLOW UP ONE (07:30)
[2019-04-24 07:40] LABS: Hematocrit 39 % (42-52); Hemoglobin 13.7 g/dL (14.0-18.0); Mean Corpuscular HGB Conc 35 g/dL (31-36); Mean Corpuscular Hemoglobin 33 pg (27-31); Mean Corpuscular Volume 94 fL (80-94); Mean Platelet Volume 8.7 fL (7.4-10.4); Platelet Count 163 10^3/uL (150-450); Red Blood Count 4.18 10^6 /uL (4.18-5.48); Red Cell Distribution Width 13 % (10-15)
[2019-04-24 07:43] LABS: ABS Basophils 0.1 10^3/ul (0-0.2); ABS Eosinophils 0.1 10^3/ul (0-0.6); ABS Lymphocytes 1.5 10^3/ul (1.0-4.8); ABS Monocytes 1.6 10^3/ul (0-0.8); ABS Neutrophils 12.8 10^3/ul (1.5-7.7); Eosinophil % 0.3 %; Lymphocyte % 9.3 %
[2019-04-24 07:56] LABS: Vancomycin Trough 12.9 mcg/mL
[2019-04-24 07:58] LABS: Albumin 3.7 g/dL (3.2-5.2); Albumin/Globulin Ratio 1.3 (1-3); BUN/Creatinine Ratio 16.7 (8-20); C Reactive Protein 201.35 mg/L (<8.01); Calcium 8.8 mg/dL (8.6-10.3); EGFR African American 100.1 (>60); EGFR Non-African American 82.7 (>60); Globulin 2.8 g/dL (2-4); Potassium 3.3 mmol/L (3.5-5.0); Total Bilirubin 1.5 mg/dL (0.2-1.0); Total Protein 6.5 g/dL (6.4-8.9)
[2019-04-24] MEDS: Insulin LISPRO* 1 UNITS UNIT SUBCUT SCH ×4 (08:08→21:02)
[2019-04-24] MEDS: Vancomycin(*) 1,500 MG in NS 0.9% 250 ML* 250 ML IVPB SCH (08:08)
[2019-04-24] MEDS: Insulin GLARGINE(*) 1 UNITS UNIT SUBCUT SCH (08:53)
--- NOTE | 2019-04-24 08:54 | PN ---
Progress Note - Progress Note Date of Service: 04/24/19 Note: Patient had no acute events overnight, was sleep when neurosurgery came in this morning. Patient had been given a dose of Ativan this morning. His was at bedside and reports that his pain is possible improving, but he still remains unstable with transfers. I spoke with PT yesterday and it was reported that his ability to ambulate declined yesterday as compared to previous day. A referral was placed for PMRU to evaluate patient for placement. Also patient was having issues with retaining urine, currently has a Turner in place. His white continue is trending up he currently on Abx therapy, I will follow up with medicine recommendations.
--- NOTE | 2019-04-24 08:57 | PN ---
Subjective - Subjective Reason for Note: Progress Note History: He is sleepy this morning and difficulty with attention - he has had some lorazepam. He is disoriented to time. He has some back pain, but denies other sites of pain. He required a Turner catheter yesterday owing to urinary retention. He was unable to have PT yesterday and didn't have solid food. He has had a low grade fever. Active Problems: Active Problems S/P lumbar laminectomy (Acute) Z98.890 Hyperglycemia (Acute) R73.9 Type 2 diabetes mellitus, uncontrolled (Chronic) E11.65 Alcohol abuse (Chronic) F10.10 Gout (Chronic) M10.9 Hypercholesteremia (Chronic) E78.0 Hypertension (Chronic) I10 Depression (Chronic) F32.9 BPH (benign prostatic hypertrophy) (Chronic) N40.0 Acute urinary retention (Acute) R33.8 Current Medications: Current Medications Acetaminophen (Tylenol Tab*) 650 mg PO Q4H PRN PRN Reason: PAIN - MILD Last Admin: 04/24/19 04:58 Dose: 650 mg Atorvastatin Calcium (Lipitor*) 40 mg PO QAM [facility] Last Admin: 04/23/19 09:04 Dose: 40 mg Cholecalciferol (Vitamin D Tab*) 2,000 units PO QAM [facility] Last Admin: 04/23/19 09:05 Dose: 2,000 units Cyclobenzaprine HCl (Flexeril Tab*) 10 mg PO TID PRN PRN Reason: SPASMS Last Admin: 04/23/19 09:06 Dose: 10 mg Dextrose (Dextrose 50% Vial 50 Ml*) 25 ml IV PUSH .FOR FS < 60 - SS PRN PRN Reason: FS < 60 Duloxetine HCl (Cymbalta Cap*) 60 mg PO DAILY [facility] Last Admin: 04/23/19 09:03 Dose: 60 mg Febuxostat (Uloric(Nf)) 40 mg PO BEDTIME [facility] Last Admin: 04/23/19 21:40 Dose: 40 mg Fluticasone Propionate (Flonase Nasal [place] 50mcg*) 2 spray BOTH NARES DAILY PRN PRN Reason: allergies Gabapentin (Neurontin Cap(*)) 300 mg PO TID [facility] Last Admin: 04/23/19 21:39 Dose: 300 mg Glipizide (Glucotrol Tab*) 10 mg PO 0800,1700 [facility] Last Admin: 04/23/19 17:38 Dose: 10 mg Vancomycin HCl 1,500 mg/ (Sodium Chloride) 250 mls @ 166.667 mls/hr IVPB Q12H [facility] Last Admin: 04/24/19 08:08 Dose: 166.667 mls/hr Piperacillin Sod/Tazobactam (Sod 3.375 gm/ Sodium Chloride) 100 mls @ 25 mls/ hr IVPB Q8H [facility] Last Admin: 04/24/19 02:51 Dose: 25 mls/hr Insulin Glargine (Lantus(*)) 24 units SUBCUT Q24H [facility] Last Admin: 04/23/19 09:12 Dose: 24 unit Insulin Human Lispro (Humalog*) 0 units SUBCUT ACHS [facility]; Protocol Last Admin: 04/24/19 08:08 Dose: 1 unit Lorazepam (Ativan Tab(*)) 0 - 6 mg PO .PER [facility]; Protocol Last Admin: 04/24/19 04:11 Dose: 2 mg Losartan Potassium (Cozaar Tab*) 50 mg PO [facility] Last Admin: 04/23/19 09:05 Dose: 50 mg Magnesium Hydroxide (Milk Of Magnesia Liq*) 30 ml PO DAILY PRN PRN Reason: CONSTIPATION Methylphenidate HCl (Ritalin Tab*) 20 mg PO BID [facility] Last Admin: 04/23/19 20:25 Dose: Not Given Oxycodone HCl (Roxycodone Tab*) 5 mg PO Q4H PRN PRN Reason: moderate pain Last Admin: 04/23/19 20:12 Dose: 5 mg Pharmacy Consult (Zosyn Per Pharmacy*) 1 note FOLLOW UP .ZOSYN PER PHARMACY [facility] Pharmacy Consult (Vancomycin Per Pharmacy*) 1 note FOLLOW UP . PRN PRN Reason: PER PROTOCOL Tamsulosin HCl (Flomax Cap*) 0.4 mg PO [facility] Last Admin: 04/23/19 09:04 Dose: 0.4 mg Home Medications: Home Medications Medication Instructions Recorded Confirmed Type Gabapentin CAP(*) [Neurontin 100 300 mg PO TID 04/27/18 04/21/19 History mg CAP(*)] Naproxen Sodium [Aleve] 2 cap PO QAM 04/27/18 04/21/19 History glipiZIDE [Glipizide] 5 mg PO BID 04/27/18 04/21/19 History Cholecalciferol TAB* [Vitamin D 2,000 units PO QAM 10/13/18 04/21/19 History TAB*] Duloxetine HCl 60 mg PO QAM 10/13/18 04/21/19 History Fluticasone NASAL SPRAY 50MCG* 2 spray BOTH NARES DAILY PRN 10/13/18 04/21/19 History [Flonase NASAL SPRAY 50MCG*] Methylphenidate HCl 20 mg PO BID 10/13/18 04/21/19 History [Methylphenidate HCl ER] Sildenafil Citrate [Viagra] 100 mg PO DAILY PRN 10/13/18 04/21/19 History Vitamin B Complex CAP* [B Complex 1 cap PO QAM 10/13/18 04/21/19 History CAP*] hydroCHLOROthiazide 12.5 mg PO QAM 10/13/18 04/21/19 History [Hydrochlorothiazide] Tamsulosin CAP* [Flomax CAP*] 0.4 mg PO QAM 12/05/18 04/21/19 History Atorvastatin Calcium [Lipitor] 40 mg PO QAM 04/09/19 04/21/19 History Febuxostat 40 mg PO BEDTIME 04/09/19 04/21/19 History Losartan Potassium [Cozaar] 50 mg PO QAM 04/09/19 04/21/19 History Allergies: Allergies Allergy/AdvReac Type Severity Reaction Status Date / Time amlodipine Allergy Dizziness Verified 04/21/19 06:38 levofloxacin Allergy SEVERE Verified 04/21/19 06:38 NEUROPATHY IN LEGS metformin Allergy Dizziness Verified 04/21/19 06:38 metoprolol Allergy Dizziness Verified 04/21/19 06:38 shellfish derived Allergy Airway Verified 04/21/19 06:38 Obstruction Sulfa (Sulfonamide Allergy Anaphylatic Verified 04/21/19 06:38 Antibiotics) Shock verapamil Allergy Dizziness Verified 04/21/19 06:38 NUTS Allergy Shortness Uncoded 04/21/19 06:38 of Breath Objective - Vital Signs Vital Signs: Vital Signs 04/23/19 04/23/19 04/23/19 09:04 09:05 09:06 Temperature Pulse Rate Respiratory 20 18 18 Rate Blood Pressure (mmHg) O2 Sat by Pulse Oximetry 04/23/19 04/23/1919 09:40 11:04 11:37 Temperature 98.4 F 97.3 F Pulse Rate 93 85 Respiratory 17 18 17 Rate Blood Pressure 151/71 156/83 (mmHg) O2 Sat by Pulse 93 93 Oximetry 04/23/19 04/23/19 04/23/19 13:28 14:15 15:53 Temperature 98 F 97.9 F Pulse Rate 83 84 Respiratory 17 20 15 Rate Blood Pressure 155/73 156/65 (mmHg) O2 Sat by Pulse 95 94 Oximetry 04/23/19 04/23/19 04/23/19 16:15 19:13 20:12 Temperature 97.1 F Pulse Rate 88 Respiratory 20 20 20 Rate Blood Pressure 171/93 (mmHg) O2 Sat by Pulse 94 Oximetry 04/23/19 04/23/19 04/23/19 20:22 20:38 21:39 Temperature Pulse Rate Respiratory 20 20 18 Rate Blood Pressure (mmHg) O2 Sat by Pulse Oximetry 04/23/19 04/23/19 04/23/19 23:10 23:39 23:57 Temperature 100.5 F Pulse Rate 91 Respiratory 18 24 24 Rate Blood Pressure 173/92 (mmHg) O2 Sat by Pulse 95 Oximetry 04/23/19 04/24/19 04/24/19 23:59 00:01 03:06 Temperature 99 F Pulse Rate 94 Respiratory 24 24 Rate Blood Pressure 153/90 (mmHg) O2 Sat by Pulse 96 91 Oximetry 04/24/19 04/24/19 04/24/19 04:00 04:11 06:10 Temperature Pulse Rate Respiratory 22 22 24 Rate Blood Pressure (mmHg) O2 Sat by Pulse Oximetry 04/24/19 07:58 Temperature 98.0 F Pulse Rate 85 Respiratory 18 Rate Blood Pressure 160/71 (mmHg) O2 Sat by Pulse 90 Oximetry - Intake and Output Intake and Output: Intake & Output 04/21/19 04/22/19 04/23/19 04/24/19 11:59 11:59 11:59 11:59 Intake Total 2040 4755 930 Output Total 0860 440 9153 Balance 930 4655 -770 Weight 228 lb Intake: IV Fluids 1293 50 NS (0.9%) 303 50 NS bolus 990 IVPB 112 400 ABX - VANCOMYCIN 290 ABX - ZOSYN 112 110 Oral 2040 3350 480 Output: Urine 1080 100 Turner 1700 Estimated Blood Loss 30 Other: Estimated Void Small Medium # Bowel Movements 0 # Voids 1 ADLs: Meal Record Start: 04/21/19 15: 33 Freq: Status: Active Protocol: Created 04/21/19 15:33 [id number] (Rec: 04/21/19 15:33 [id number] SSU-M06) Document 04/22/19 10:02 [id number] (Rec: 04/22/19 10:03 [id number] SSU-C04) Document 04/22/19 14:43 [id number] (Rec: 04/22/19 14:44 [id number] SSU-C04) Intake and Output Start: 04/21/19 15: 33 Freq: DAILY@0600,1400,2200 Status: Active Protocol: Created 04/21/19 15:33 [id number] (Rec: 04/21/19 15:33 [id number] SSU-M06) Document 04/21/19 19:14 [id number] (Rec: 04/21/19 19:14 [id number] SSU-C10) Document 04/21/19 22:15 [id number] (Rec: 04/21/19 22:16 [id number] SSU-M17) Document 04/21/19 22:17 [id number] (Rec: 04/21/19 22:17 [id number] SSU-L03) Document 04/22/19 05:33 [id number] (Rec: 04/22/19 05:34 [id number] SSU-L02) Document 04/22/19 05:34 [id number] (Rec: 04/22/19 05:34 [id number] SSU-L02) Document 04/22/19 10:02 [id number] (Rec: 04/22/19 10:03 [id number] SSU-C04) Document 04/22/19 14:00 [id number] (Rec: 04/22/19 14:13 [id number] SSU-M16) Document 04/22/19 14:43 [id number] (Rec: 04/22/19 14:44 [id number] SSU-C04) Document 04/22/19 21:24 [id number] (Rec: 04/22/19 21:24 [id number] SSU-M07) Document 04/22/19 21:28 [id number] (Rec: 04/22/19 21:30 [id number] SSU-M18) Document 04/22/19 22:00 [id number] (Rec: 04/22/19 22:22 [id number] SSU-M18) Document 04/23/19 05:37 [id number] (Rec: 04/23/19 05:38 [id number] SSU-M18) Document 04/23/19 14:00 [id number] (Rec: 04/23/19 14:41 [id number] SSU-C10) Document 04/23/19 22:31 [id number] (Rec: 04/23/19 22:31 [id number] SSU-M18) Document 04/24/19 05:25 [id number] (Rec: 04/24/19 05:27 [id number] U-M18) - Physical Exam General Physical Exam Comment: Appears warm and diaphoretic. He has altered mental status - difficult to wake and falls back asleep rapidly General: No Cyanosis, No Anemia, No Jaundice Eye Exam: bilateral: EOMI Skin: Normal: Rash Throat/Oropharyx Exam: Bilateral: Other - coated tongue Lungs and Chest: Yes: Chest Expansion Full, Chest Expansion Symetrica, Percussion Note Resonant, Vessicular Breath Sounds, Wheezes - a few scattered. No: Crackles, Respiratory Distress, Use of Accessory Muscles Heart Rate and Rhythm: Regular Additional Cardiovascular: Yes: Normal Heart Sounds. No: Heart Murmur, Pedal Edema Abdominal Exam: Yes: Distention - mild, Soft, Bowel Sounds Present. No: Rigidity, Abdominal Mass, Hepatomegaly, Splenomegaly, Abdominal Tenderness, Guarding, Rebound Tenderness - Neuro Orientation: Person, Place - It took several attempts Psychiatric: Normal Speech: Normal Results - Results Lab Results: Laboratory Results - last 24 hr 04/23/19 04/23/19 04/23/19 11:20 14:15 17:00 WBC RBC Hgb Hct MCV MCH MCHC RDW Plt Count MPV Neut % (Auto) Lymph % (Auto) [place] % (Auto) Eos % (Auto) Baso % (Auto) Absolute Neuts (auto) Absolute Lymphs (auto) Absolute Monos (auto) Absolute Eos (auto) Absolute Basos (auto) Absolute Nucleated RBC Nucleated RBC % Sodium Potassium Chloride Carbon Dioxide Anion Gap BUN Creatinine Est GFR ( Amer) Est GFR (Non-Af Amer) BUN/Creatinine Ratio Glucose POC Glucose (mg/dL) 98 157 H Calcium Total Bilirubin Direct Bilirubin Indirect Bilirubin AST ALT Alkaline Phosphatase C-Reactive Protein Total Protein Albumin Globulin Albumin/Globulin Ratio Urine Color Yellow Urine Appearance Clear Urine pH 6.0 Ur Specific [place] 1.025 Urine Protein Negative Urine Ketones Trace A Urine Blood 1+ A Urine Nitrate Negative Urine Bilirubin Negative Urine Urobilinogen Negative Ur Leukocyte Esterase Negative Urine WBC (Auto) Absent Urine RBC (Auto) Trace(0-2/hpf) Urine Bacteria Absent Urine Glucose 3+(>=500 mg/dl) A Vancomycin Trough 04/23/19 04/24/19 04/24/19 21:25 07:09 07:09 WBC 16.0 H RBC 4.18 Hgb 13.7 L Hct 39 L MCV 94 MCH 33 H MCHC 35 RDW 13 Plt Count 163 MPV 8.7 Neut % (Auto) 80.1 Lymph % (Auto) 9.3 [place] % (Auto) 9.9 Eos % (Auto) 0.3 Baso % (Auto) 0.4 Absolute Neuts (auto) 12.8 H Absolute Lymphs (auto) 1.5 Absolute Monos (auto) 1.6 H Absolute Eos (auto) 0.1 Absolute Basos (auto) 0.1 Absolute Nucleated RBC 0.0 Nucleated RBC % 0.0 Sodium Potassium Chloride Carbon Dioxide Anion Gap BUN Creatinine Est GFR ( Amer) Est GFR (Non-Af Amer) BUN/Creatinine Ratio Glucose POC Glucose (mg/dL) 138 H Calcium Total Bilirubin Direct Bilirubin Indirect Bilirubin AST ALT Alkaline Phosphatase C-Reactive Protein Total Protein Albumin Globulin Albumin/Globulin Ratio Urine Color Urine Appearance Urine pH Ur Specific [place] Urine Protein Urine Ketones Urine Blood Urine Nitrate Urine Bilirubin Urine Urobilinogen Ur Leukocyte Esterase Urine WBC (Auto) Urine RBC (Auto) Urine Bacteria Urine Glucose Vancomycin Trough 12.9 04/24/19 04/24/19 07:09 07:40 WBC RBC Hgb Hct MCV MCH MCHC RDW Plt Count MPV Neut % (Auto) Lymph % (Auto) [place] % (Auto) Eos % (Auto) Baso % (Auto) Absolute Neuts (auto) Absolute Lymphs (auto) Absolute Monos (auto) Absolute Eos (auto) Absolute Basos (auto) Absolute Nucleated RBC Nucleated RBC % Sodium 136 Potassium 3.3 L Chloride 100 L Carbon Dioxide 24 Anion Gap 12 H BUN 15 Creatinine 0.90 Est GFR ( Amer) 100.1 Est GFR (Non-Af Amer) 82.7 BUN/Creatinine Ratio 16.7 Glucose 147 H POC Glucose (mg/dL) 143 H Calcium 8.8 Total Bilirubin 1.50 H Direct Bilirubin 0.50 H Indirect Bilirubin 1.0 AST 62 H ALT 40 Alkaline Phosphatase 36 C-Reactive Protein 201.35 H Total Protein 6.5 Albumin 3.7 Globulin 2.8 Albumin/Globulin Ratio 1.3 Urine Color Urine Appearance Urine pH Ur Specific [place] Urine Protein Urine Ketones Urine Blood Urine Nitrate Urine Bilirubin Urine Urobilinogen Ur Leukocyte Esterase Urine WBC (Auto) Urine RBC (Auto) Urine Bacteria Urine Glucose Vancomycin Trough Assessment - Problem List Assessment: Patient Problems Sepsis (Acute) S/P lumbar laminectomy (Acute) Hyperglycemia (Acute) Type 2 diabetes mellitus, uncontrolled (Chronic) Alcohol abuse (Chronic) Gout (Chronic) Hypercholesteremia (Chronic) Hypertension (Chronic) Depression (Chronic) BPH (benign prostatic hypertrophy) (Chronic) Acute urinary retention (Acute) Plan: Sepsis (Acute) He continues to have signs of acute infection/inflammation. His WBC is elevated and his %neuts are at the upper limit. He has had a further increase in his CRP. This seems to me more than I would expect from his surgery. I note that he went into acute urinary retention. We have no positive bacterial cultures and no clear source for this infection. Prostatitis is a possibility, given his previous episode of sepsis. Surgical wound infection is less likely given it started so soon after surgery. I am asking Dr. Pal Thao for an infectious disease consultation. I will continue his empiric antibacterial treatment S/P lumbar laminectomy (Acute) Day 3 - per Dr. Gallego Hyperglycemia (Acute) Type 2 diabetes mellitus, uncontrolled (Chronic) His diabetes has come under control Secondary diagnoses Alcohol abuse (Chronic) Gout (Chronic) Hypercholesteremia (Chronic) Hypertension (Chronic) Depression (Chronic) BPH (benign prostatic hypertrophy) (Chronic) I explained the above to Javon and Sommer Allred and answered questions.
[2019-04-24] MEDS: Cholecalciferol TAB* 1000 UNITS PO SCH (10:18)
[2019-04-24] MEDS: Gabapentin CAP(*) 300 MG PO SCH ×2 (10:18→14:38)
[2019-04-24] MEDS: Atorvastatin* 40 MG TAB PO SCH (10:18)
[2019-04-24] MEDS: DULoxetine DR CAP* 60 MG CAP.DR PO SCH (10:18)
[2019-04-24] MEDS: glipiZIDE TAB* 5 MG PO SCH ×2 (10:18→18:06)
[2019-04-24] MEDS: Tamsulosin CAP* 0.4 MG PO SCH (10:19)
[2019-04-24] MEDS: Methylphenidate TAB* 10 MG PO SCH (10:19)
[2019-04-24] MEDS: Losartan TAB* 25 MG PO SCH (10:19)
--- NOTE | 2019-04-24 13:00 | CONS ---
CONSULTATION REPORT: DATE OF CONSULTATION: 04/24/19 REQUESTING PHYSICIAN: Dr. Desai. CONSULTING SERVICE: Infectious Disease. REASON FOR CONSULTATION: Fever. IMPRESSION: Fever of 38.8 on 04/22/19 and then some low-grade fever since then. He did have on 04/21/19, an L4-L5 laminectomy, bone graft, and instrumentation. The differential diagnosis includes: 1. The usual postoperative fever including urinary tract infection or pneumonia. Though his urinalysis is benign, he does have some blood, no white cells or leukocyte esterase. He had acute urinary retention, which would bring back up the question of infection, but again his urinalysis is fairly benign. He had a chest x- ray that shows no acute changes. He has no cough or dyspnea currently. He has pain at the site of his surgery, which is not unexpected. There is nothing on exam that suggests a surgical site infection currently. His iliac crest graft site is benign. He does not have any other focal signs or symptoms to point to other source of infection. He does have a prosthetic left hip which is asymptomatic and benign on exam. 2. Diabetes. 3. Depression. 4. Status post left knee arthroplasty. 5. History of prostatitis. RECOMMENDATION: Agree with broad-spectrum antibiotics. If the cultures come back negative, I think we should stop the vancomycin and then consider stopping the Zosyn assuming he is otherwise slowly improving. We will follow his white blood cell count as well. We will also keep an eye on his various incisions here. HISTORY OF PRESENT ILLNESS: This is a 73-year-old man, who was admitted electively for lumbar surgery as described above. According to the patient and his , he had been well on the days and weeks before coming into the hospital and then the day after surgery, developed some confusion and fever with leukocytosis. Urinalysis was obtained that showed blood, no white cells, no leukocyte esterase. Blood cultures were taken that are negative at 24 hours. A chest x-ray showed no acute process. He has not noticed symptoms other than pain around the surgical site in his back. His white count on 04/22/19 was 12.7, today it is 16. He had a C-reactive protein of 65 on 04/22/19 and 200 today. His thinks that his mental status is more at baseline. He did have some Ativan this morning and has been a bit drowsy today. PAST MEDICAL HISTORY: 1. History of prostatitis. 2. Afv-iwmsoye-kxbzqveei diabetes mellitus. 3. Hypertension. 4. Depression. 5. Gout. 6. Hyperlipidemia. 7. Benign prostatic hypertrophy. 8. Obesity. 9. Peripheral neuropathy. 10. History of nephrolithiasis. 11. Obstructive sleep apnea. 12. Osteoarthritis. 13. History of dog bite requiring hand surgery. MEDICATIONS: 1. Atorvastatin. 2. Cholecalciferol. 3. Flexeril. 4. Febuxostat. 5. Fluticasone nasal spray. 6. Gabapentin. 7. Glipizide. 8. Insulin glargine. 9. Insulin lispro. 10. Losartan. 11. Magnesium hydroxide. 12. Methylphenidate. 13. Oxycodone as needed. 14. Zosyn 3.375 g IV every 8 hours. 15. Tamsulosin. 16. Vancomycin 1250 mg every 8 hours. ALLERGIES: SULFA, LEVAQUIN, AMLODIPINE, METFORMIN, METOPROLOL, VERAPAMIL. SOCIAL HISTORY: He lives in [place] with his . He had a trip to the [facility] the weekend before coming into the hospital and he does spend a little bit of time out in the yard here. REVIEW OF SYSTEMS: All negative except as noted above to a 12-point review. PHYSICAL EXAM: Vital Signs: Temperature is 37, heart rate 89, respiratory rate 18, blood pressure 140/85, oxygen saturation 95% on room air. In general, he is awake, not in distress. Neurologically, he is oriented x3, follows commands, moves all 4 extremities. HEENT: There is no conjunctival hemorrhage. Oropharynx without lesions. Neck is supple without mass. Heart is regular rate and rhythm without murmurs, rubs, or gallops. Lungs are clear to auscultation bilaterally. Abdomen: Soft, nontender, nondistended. There are bowel sounds present. Skin: There is no rash or splinter hemorrhage. The lumbar spine incision, there is no surrounding erythema and it is intact. DIAGNOSTIC STUDIES/LAB DATA: White blood cell count 16, hemoglobin 13.7, platelets 163,000. Creatinine is 0.9, bilirubin 1.5, CRP 201, AST 62, ALT 40. Please see impressions and recommendations outlined above. Thank you for asking me to see Mr. Allred in consultation. [id number]/[facility] #: [id number] EFRAIN
[2019-04-24] MEDS ORDERED: Ibuprofen TAB* 400 MG ONE (17:08)
[2019-04-24] MEDS ORDERED: Ibuprofen TAB* 400 MG PO PRN (17:17)
[2019-04-24] MEDS ORDERED: NS 0.9% 1000 ML** 1,000 ML IV SCH (17:30)
[2019-04-24] MEDS: Vancomycin(*) 1,250 MG in NS 0.9% 250 ML* 250 ML IVPB SCH (23:07)
[2019-04-25] MEDS: CMCS: Febuxostat(NF) 40 MG TAB PO SCH ×2 (00:19→21:30)
[2019-04-25] MEDS: Gabapentin CAP(*) 300 MG PO SCH ×4 (00:20→21:30)
[2019-04-25] MEDS: Methylphenidate TAB* 10 MG PO SCH ×3 (00:21→22:12)
[2019-04-25] MEDS: ZOSYN 3.375 GM Q8H per EXTENDED INFUSION IVPB SCH ×6 (02:03→17:48)
[2019-04-25] MEDS: Acetaminophen TAB* 325 MG PO PRN ×2 (04:31→12:59)
[2019-04-25] MEDS: oxyCODONE TAB* 5 MG TAB PO PRN ×3 (05:39→17:42)
[2019-04-25 06:23] LABS: ABS Basophils 0.1 10^3/ul (0-0.2); ABS Eosinophils 0.2 10^3/ul (0-0.6); ABS Lymphocytes 1.1 10^3/ul (1.0-4.8); ABS Monocytes 0.9 10^3/ul (0-0.8); ABS Neutrophils 8.5 10^3/ul (1.5-7.7); Eosinophil % 1.9 %; Hematocrit 38 % (42-52); Hemoglobin 13.3 g/dL (14.0-18.0); Lymphocyte % 9.8 %; Mean Corpuscular HGB Conc 35 g/dL (31-36); Mean Corpuscular Hemoglobin 33 pg (27-31); Mean Corpuscular Volume 93 fL (80-94); Mean Platelet Volume 8.7 fL (7.4-10.4); Platelet Count 190 10^3/uL (150-450); Red Blood Count 4.05 10^6 /uL (4.18-5.48); Red Cell Distribution Width 13 % (10-15); White Blood Count 10.7 10^3/uL (3.5-10.8)
[2019-04-25 06:34] LABS: Albumin 3.4 g/dL (3.2-5.2); Calcium 8.5 mg/dL (8.6-10.3); Indirect Bilirubin 0.9 mg/dL (0.3-1.0); Potassium 3.2 mmol/L (3.5-5.0); Total Bilirubin 1.2 mg/dL (0.2-1.0)
[2019-04-25 06:40] LABS: Albumin/Globulin Ratio 1.4 (1-3); BUN/Creatinine Ratio 18.6 (8-20); C Reactive Protein 157.28 mg/L (<8.01); EGFR African American 105.5 (>60); EGFR Non-African American 87.2 (>60); Globulin 2.5 g/dL (2-4); Total Protein 5.9 g/dL (6.4-8.9)
[2019-04-25] MEDS: Vancomycin(*) 1,250 MG in NS 0.9% 250 ML* 250 ML IVPB SCH ×2 (07:14→15:21)
[2019-04-25] MEDS: Insulin GLARGINE(*) 1 UNITS UNIT SUBCUT SCH (08:36)
[2019-04-25] MEDS: Insulin LISPRO* 1 UNITS UNIT SUBCUT SCH ×4 (08:36→22:12)
[2019-04-25] MEDS: DULoxetine DR CAP* 60 MG CAP.DR PO SCH (08:38)
[2019-04-25] MEDS: glipiZIDE TAB* 5 MG PO SCH ×2 (08:38→17:42)
[2019-04-25] MEDS: Atorvastatin* 40 MG TAB PO SCH (08:39)
[2019-04-25] MEDS: Tamsulosin CAP* 0.4 MG PO SCH (08:39)
[2019-04-25] MEDS: Losartan TAB* 25 MG PO SCH (08:40)
[2019-04-25] MEDS: Cholecalciferol TAB* 1000 UNITS PO SCH (08:40)
--- NOTE | 2019-04-25 10:47 | PN ---
Subjective - Subjective Reason for Note: Progress Note History: He woke up at 4 am, according to Sommer Agrawal MD - his . He was in a delirium for the past 2 days, and he came out of it. He tells us the he found it "quite pleasant". He is now fully oriented to time/place and person. He is able to give a detailed account of himself and his surgery. Interestingly, he states he has severe back pain and that this different from the pain that preceded the surgery. It feels similar to a previous kidney stone. Otherwise, he ate breakfast heartily and had a "muddy" bowel movement. He is not coughing and has no chest pain. He has no other new pain. Active Problems: Active Problems Acute urinary retention (Acute) R33.8 Hyperglycemia (Acute) R73.9 S/P lumbar laminectomy (Acute) Z98.890 Alcohol abuse (Chronic) F10.10 BPH (benign prostatic hypertrophy) (Chronic) N40.0 Depression (Chronic) F32.9 Gout (Chronic) M10.9 Hypercholesteremia (Chronic) E78.0 Hypertension (Chronic) I10 Type 2 diabetes mellitus, uncontrolled (Chronic) E11.65 Current Medications: Current Medications Acetaminophen (Tylenol Tab*) 650 mg PO Q4H PRN PRN Reason: PAIN - MILD Last Admin: 04/25/19 04:31 Dose: 650 mg Atorvastatin Calcium (Lipitor*) 40 mg PO QAM [facility] Last Admin: 04/25/19 08:39 Dose: 40 mg Cholecalciferol (Vitamin D Tab*) [facility] Last Admin: 04/25/19 08:40 Dose: 2,000 units Cyclobenzaprine HCl (Flexeril Tab*) 10 mg PO TID PRN PRN Reason: SPASMS Last Admin: 04/23/19 09:06 Dose: 10 mg Dextrose (Dextrose 50% Vial 50 Ml*) 25 ml IV PUSH .FOR FS < 60 - SS PRN PRN Reason: FS < 60 Duloxetine HCl (Cymbalta Cap*) 60 mg PO DAILY [facility] Last Admin: 04/25/19 08:38 Dose: 60 mg Febuxostat (Uloric(Nf)) 40 mg PO BEDTIME [facility] Last Admin: 04/25/19 00:19 Dose: Not Given Fluticasone Propionate (Flonase Nasal [place] 50mcg*) 2 spray BOTH NARES DAILY PRN PRN Reason: allergies Gabapentin (Neurontin Cap(*)) 300 mg PO TID [facility] Last Admin: 04/25/19 08:39 Dose: 300 mg Glipizide (Glucotrol Tab*) 10 mg PO 0800,1700 [facility] Last Admin: 04/25/19 08:38 Dose: 10 mg Piperacillin Sod/Tazobactam (Sod 3.375 gm/ Sodium Chloride) 100 mls @ 25 mls/ hr IVPB Q8H [facility] Last Admin: 04/25/19 02:03 Dose: 25 mls/hr Vancomycin HCl 1,250 mg/ (Sodium Chloride) 250 mls @ 166.667 mls/hr IVPB Q8H [facility] Last Admin: 04/25/19 07:14 Dose: 166.667 mls/hr Sodium Chloride (Ns 0.9% 1000 Ml) 1,000 mls @ 75 mls/hr IV PER RATE [facility] Ibuprofen (Motrin Tab*) 400 mg PO TID PRN PRN Reason: .FEVER Insulin Glargine (Lantus(*)) 24 units SUBCUT Q24H [facility] Last Admin: 04/25/19 08:36 Dose: 24 unit Insulin Human Lispro (Humalog*) 0 units SUBCUT ACHS [facility]; Protocol Last Admin: 04/25/19 08:36 Dose: 1 unit Lorazepam (Ativan Tab(*)) 0 - 6 mg PO .PER WAM PARAMETERS [facility]; Protocol Last Admin: 04/24/19 04:11 Dose: 2 mg Losartan Potassium (Cozaar Tab*) 50 mg PO QAM [facility] Last Admin: 04/25/19 08:40 Dose: 50 mg Magnesium Hydroxide (Milk Of Magnesia Liq*) 30 ml PO DAILY PRN PRN Reason: CONSTIPATION Last Admin: 04/25/19 08:37 Dose: 30 ml Methylphenidate HCl (Ritalin Tab*) 20 mg PO BID [facility] Last Admin: 04/25/19 08:39 Dose: 20 mg Oxycodone HCl (Roxycodone Tab*) 5 mg PO Q4H PRN PRN Reason: moderate pain Last Admin: 04/25/19 09:42 Dose: 5 mg Pharmacy Consult (Zosyn Per Pharmacy*) 1 note FOLLOW UP .ZOSYN PER PHARMACY [facility] Pharmacy Consult (Vancomycin Per Pharmacy*) 1 note FOLLOW UP . PRN PRN Reason: PER PROTOCOL Pharmacy Profile Note (Vancomycin Trough Check) 1 note FOLLOW UP 1300 ONE Stop: 04/26/19 13:01 Tamsulosin HCl (Flomax Cap*) [facility] [place] Last Admin: 04/25/19 08:39 Dose: 0.4 mg Home Medications: Home Medications Medication Instructions Recorded Confirmed Type Gabapentin CAP(*) [Neurontin 100 300 mg PO TID 04/27/18 04/21/19 History mg CAP(*)] Naproxen Sodium [Aleve] 2 cap PO QAM 04/27/18 04/21/19 History glipiZIDE [Glipizide] 5 mg PO BID 04/27/18 04/21/19 History Cholecalciferol TAB* [Vitamin D 2,000 units PO QAM 10/13/18 04/21/19 History TAB*] Duloxetine HCl 60 mg PO QAM 10/13/18 04/21/19 History Fluticasone NASAL SPRAY 50MCG* 2 spray BOTH NARES DAILY PRN 10/13/18 04/21/19 History [Flonase NASAL SPRAY 50MCG*] Methylphenidate HCl 20 mg PO BID 10/13/18 04/21/19 History [Methylphenidate HCl ER] Sildenafil Citrate [Viagra] 100 mg PO DAILY PRN 10/13/18 04/21/19 History Vitamin B Complex CAP* [B Complex 1 cap PO QAM 10/13/18 04/21/19 History CAP*] hydroCHLOROthiazide 12.5 mg PO QAM 10/13/18 04/21/19 History [Hydrochlorothiazide] Tamsulosin CAP* [Flomax CAP*] 0.4 mg PO QAM 12/05/18 04/21/19 History Atorvastatin Calcium [Lipitor] 40 mg PO QAM 04/09/19 04/21/19 History Febuxostat 40 mg PO BEDTIME 04/09/19 04/21/19 History Losartan Potassium [Cozaar] 50 mg PO QAM 04/09/19 04/21/19 History Allergies: Allergies Allergy/AdvReac Type Severity Reaction Status Date / Time amlodipine Allergy Dizziness Verified 04/21/19 06:38 levofloxacin Allergy SEVERE Verified 04/21/19 06:38 NEUROPATHY IN LEGS metformin Allergy Dizziness Verified 04/21/19 06:38 metoprolol Allergy Dizziness Verified 04/21/19 06:38 shellfish derived Allergy Airway Verified 04/21/19 06:38 Obstruction Sulfa (Sulfonamide Allergy Anaphylatic Verified 04/21/19 06:38 Antibiotics) Shock verapamil Allergy Dizziness Verified 04/21/19 06:38 NUTS Allergy Shortness Uncoded 04/21/19 06:38 of Breath Objective - Vital Signs Vital Signs: Vital Signs 04/24/19 04/24/19 04/24/19 11:26 12:48 14:38 Temperature 99.8 F Pulse Rate 89 Respiratory 18 18 18 Rate Blood Pressure 140/85 (mmHg) O2 Sat by Pulse 95 Oximetry 04/24/19 04/24/19 04/24/19 15:57 16:00 17:43 Temperature 101.2 F 98.7 F Pulse Rate 92 84 Respiratory 20 20 Rate Blood Pressure 155/80 150/89 (mmHg) O2 Sat by Pulse 92 95 95 Oximetry 04/24/19 04/24/19 04/24/19 17:47 19:19 20:14 Temperature Pulse Rate Respiratory 18 20 14 Rate Blood Pressure (mmHg) O2 Sat by Pulse Oximetry 04/24/19 04/24/19 04/25/19 20:15 22:25 00:04 Temperature 96.7 F 97.3 F 97.4 F Pulse Rate 80 71 72 Respiratory 14 18 Rate Blood Pressure 123/84 124/80 126/68 (mmHg) O2 Sat by Pulse 96 91 95 Oximetry 04/25/19 04/25/19 04/25/19 00:20 04:00 04:14 Temperature 97.4 F Pulse Rate 80 Respiratory 20 16 16 Rate Blood Pressure 146/68 (mmHg) O2 Sat by Pulse 97 Oximetry 04/25/19 04/25/19 04/25/19 05:39 07:42 08:00 Temperature 99.1 F Pulse Rate 89 Respiratory 18 16 18 Rate Blood Pressure 141/61 (mmHg) O2 Sat by Pulse 96 96 Oximetry 04/25/19 04/25/19 04/25/19 08:23 08:39 09:42 Temperature Pulse Rate Respiratory 18 18 18 Rate Blood Pressure (mmHg) O2 Sat by Pulse Oximetry - Intake and Output Intake and Output: Intake & Output 04/22/19 04/23/19 04/24/1914/19 11:59 11:59 11:59 11:59 Intake Total 2040 4755 930 1384 Output Total 6840 495 0074 1400 Balance 930 4655 -770 -16 Intake: IV Fluids 1293 50 784 ABX - PIPERACILLIN 224 ABX - VANCOMYCIN 560 NS (0.9%) 303 50 NS bolus 990 IVPB 112 400 ABX - VANCOMYCIN 290 ABX - ZOSYN 112 110 Oral 2040 3350 480 600 Output: Urine 1080 100 [place] 1700 1400 Estimated Blood Loss 30 Other: Estimated Void Small Medium # Bowel Movements 0 # Voids 1 ADLs: Meal Record Start: 04/21/19 15: 33 Freq: Status: Active Protocol: Created 04/21/19 15:33 [id number] (Rec: 04/21/19 15:33 [id number] SSU-M06) Document 04/22/19 10:02 [id number] (Rec: 04/22/19 10:03 [id number] SSU-C04) Document 04/22/19 14:43 [id number] (Rec: 04/22/19 14:44 [id number] SSU-C04) Document 04/24/19 13:37 [id number] (Rec: 04/24/19 13:38 [id number] SSU-C03) Document 04/25/19 09:52 [id number] (Rec: 04/25/19 09:53 [id number] SSU-M18) Intake and Output Start: 04/21/19 15: 33 Freq: DAILY@0600,1400,2200 Status: Active Protocol: Created 04/21/19 15:33 [id number] (Rec: 04/21/19 15:33 [id number] SSU-M06) Document 04/21/19 19:14 [id number] (Rec: 04/21/19 19:14 [id number] SSU-C10) Document 04/21/19 22:15 [id number] (Rec: 04/21/19 22:16 [id number] SSU-M17) Document 04/21/19 22:17 [id number] (Rec: 04/21/19 22:17 [id number] SSU-L03) Document 04/22/19 05:33 [id number] (Rec: 04/22/19 05:34 [id number] SSU-L02) Document 04/22/19 05:34 [id number] (Rec: 04/22/19 05:34 [id number] SSU-L02) Document 04/22/19 10:02 [id number] (Rec: 04/22/19 10:03 [id number] SSU-C04) Document 04/22/19 14:00 [id number] (Rec: 04/22/19 14:13 [id number] SSU-M16) Document 04/22/19 14:43 [id number] (Rec: 04/22/19 14:44 [id number] SSU-C04) Document 04/22/19 21:24 [id number] (Rec: 04/22/19 21:24 [id number] SSU-M07) Document 04/22/19 21:28 [id number] (Rec: 04/22/19 21:30 [id number] SSU-M18) Document 04/22/19 22:00 [id number] (Rec: 04/22/19 22:22 [id number] SSU-M18) Document 04/23/19 05:37 [id number] (Rec: 04/23/19 05:38 [id number] SSU-M18) Document 04/23/19 14:00 [id number] (Rec: 04/23/19 14:41 [id number] SSU-C10) Document 04/23/19 22:31 [id number] (Rec: 04/23/19 22:31 [id number] SSU-M18) Document 04/24/19 05:25 [id number] (Rec: 04/24/19 05:27 [id number] SSU-M18) Document 04/24/19 14:47 [id number] (Rec: 04/24/19 14:48 [id number] SSU-C03) Document 04/24/19 21:00 [id number] (Rec: 04/24/19 21:55 [id number] SSU-C05) Document 04/25/19 06:02 [id number] (Rec: 04/25/19 06:09 [id number] SSU-M14) Document 04/25/19 09:52 [id number] (Rec: 04/25/19 09:53 [id number] SSU-M18) - Physical Exam General Physical Exam Comment: He was walking with the help of PT when I arrived. He was able to sit in a chair. He was engaged in conversation and appropriately insightful about his condition. General: No Cyanosis, No Anemia, No Jaundice, No Clubbing Lungs and Chest: Yes: Chest Expansion Full, Chest Expansion Symetrica, Percussion Note Resonant, Vessicular Breath Sounds. No: Crackles, Wheezes, Respiratory Distress Heart Rate and Rhythm: Regular Additional Cardiovascular: Yes: Normal Heart Sounds. No: Heart Murmur, Pedal Edema Abdominal Exam: Yes: Soft, Bowel Sounds Present. No: Distention, Abdominal Mass , Hepatomegaly, Splenomegaly, Abdominal Tenderness, Guarding, Rebound Tenderness Results - Results Lab Results: Laboratory Results - last 24 hr 04/24/19 04/24/19 04/24/19 07:09 07:09 12:00 WBC RBC Hgb Hct MCV MCH MCHC RDW Plt Count MPV Neut % (Auto) Lymph % (Auto) Pike % (Auto) Eos % (Auto) Baso % (Auto) Absolute Neuts (auto) Absolute Lymphs (auto) Absolute Monos (auto) Absolute Eos (auto) Absolute Basos (auto) Absolute Nucleated RBC Nucleated RBC % Sodium 136 Potassium 3.3 L Chloride 100 L Carbon Dioxide 24 Anion Gap 12 H BUN 15 Creatinine 0.90 Est GFR ( Amer) 100.1 Est GFR (Non-Af Amer) 82.7 BUN/Creatinine Ratio 16.7 Glucose 147 H POC Glucose (mg/dL) 158 H Calcium 8.8 Total Bilirubin 1.50 H Direct Bilirubin 0.50 H Indirect Bilirubin 1.0 AST 62 H ALT 40 Alkaline Phosphatase 36 C-Reactive Protein 201.35 H Total Protein 6.5 Albumin 3.7 Globulin 2.8 Albumin/Globulin Ratio 1.3 Prostate Specific Ag 0.427 Cancelled Vancomycin Trough 12.9 04/24/19 04/24/19 04/25/19 16:57 20:46 05:59 WBC 10.7 RBC 4.05 L Hgb 13.3 L Hct 38 L MCV 93 MCH 33 H MCHC 35 RDW 13 Plt Count 190 MPV 8.7 Neut % (Auto) 79.6 Lymph % (Auto) 9.8 Pike % (Auto) 8.1 Eos % (Auto) 1.9 Baso % (Auto) 0.6 Absolute Neuts (auto) 8.5 H Absolute Lymphs (auto) 1.1 Absolute Monos (auto) 0.9 H Absolute Eos (auto) 0.2 Absolute Basos (auto) 0.1 Absolute Nucleated RBC 0.0 Nucleated RBC % 0.0 Sodium Potassium Chloride Carbon Dioxide Anion Gap BUN Creatinine Est GFR ( Amer) Est GFR (Non-Af Amer) BUN/Creatinine Ratio Glucose POC Glucose (mg/dL) 159 H 155 H Calcium Total Bilirubin Direct Bilirubin Indirect Bilirubin AST ALT Alkaline Phosphatase C-Reactive Protein Total Protein Albumin Globulin Albumin/Globulin Ratio Prostate Specific Ag Vancomycin Trough 04/25/19 04/25/19 05:59 08:12 WBC RBC Hgb Hct MCV MCH MCHC RDW Plt Count MPV Neut % (Auto) Lymph % (Auto) Pike % (Auto) Eos % (Auto) Baso % (Auto) Absolute Neuts (auto) Absolute Lymphs (auto) Absolute Monos (auto) Absolute Eos (auto) Absolute Basos (auto) Absolute Nucleated RBC Nucleated RBC % Sodium 136 Potassium 3.2 L Chloride 103 Carbon Dioxide 24 Anion Gap 9 BUN 16 Creatinine 0.86 Est GFR ( Amer) 105.5 Est GFR (Non-Af Amer) 87.2 BUN/Creatinine Ratio 18.6 Glucose 132 H POC Glucose (mg/dL) 137 H Calcium 8.5 L Total Bilirubin 1.20 H Direct Bilirubin 0.30 H Indirect Bilirubin 0.9 AST 43 H ALT 35 Alkaline Phosphatase 38 C-Reactive Protein 157.28 H Total Protein 5.9 L Albumin 3.4 Globulin 2.5 Albumin/Globulin Ratio 1.4 Prostate Specific Ag Vancomycin Trough Assessment - Problem List Assessment: Patient Problems Acute urinary retention (Acute) Hyperglycemia (Acute) S/P lumbar laminectomy (Acute) Alcohol abuse (Chronic) BPH (benign prostatic hypertrophy) (Chronic) Depression (Chronic) Gout (Chronic) Hypercholesteremia (Chronic) Hypertension (Chronic) Type 2 diabetes mellitus, uncontrolled (Chronic) Sepsis (Acute) Plan: Sepsis (Acute) This has abated and his delirium has cleared. I appreciate Dr. Pal Thao's consultation. I note that his CRP is coming down, but he continues to have a low grade fever. His % neutrophils are only slightly lower than yesterday. I will maintain his IV antibacterials until his CRP comes down substantially. I note he wonders if this is due to a renal stone - perhaps he has obstruction and pyelonephritis. I will check an US kidneys. Acute urinary retention (Acute) He is going to maintain a coto Hyperglycemia (Acute) Type 2 diabetes mellitus, uncontrolled (Chronic) This has improved. This indicates his insulin resistance is improving as his inflammation decreases S/P lumbar laminectomy (Acute) He has pain around the incision site, but the deep pain he experienced prior to surgery is not present Secondary diagnoses Alcohol abuse (Chronic) I think his delirium was infectious and not due to DTs BPH (benign prostatic hypertrophy) (Chronic) Depression (Chronic) Gout (Chronic) Hypercholesteremia (Chronic) Hypertension (Chronic) I discussed the above at length with Dr. Sommer Allred. I also explained it to Javon. They agree with my management plan.
--- NOTE | 2019-04-25 20:20 | PN ---
Progress Note - Progress Note Date of Service: 04/25/19 SOAP: Subjective: []73 y/o male s/p L4/L5 TLIF POD #4, today he is ore alert, oriented to time and place. He feels more stable with transferring bed to chair. His white count is trending down and had no acute events over night. He still has some back form surgery, but feel his radicular symptoms have improved. Patient is still being followed by his primary Dr. Desai and Dr. Nicole from infectious disease. He is currently on Vancomycin and Zosyn and presently hi blood cultures are negative. He also has coto catheter still in as recommended by urology. Overall patient doing better today. Objective: []General: Patient is laying in bed comfortable. NAD A&O x3 CN II - XII grossly intact, EOM intact, pupils are equal, Upper extremity motor strength intact 5/5, lower extremity motor strength 5/5 bilaterally. Derm: Wound C/D/I no drainage seen on dressings. There is some bruising in the lumbosacral area. Assessment: []73 y/o male s/p TLIF at L4/L5 POD #4, patient doing better today his white count has went down, his vitals have been stable. His balance has improved with transferring from the bed to chair, still has has issues with ambulation. Plan: [] 1) Continue to work with PT/OT 2) Continue monitor temp 3) Follow recommendations by medicine and infectious disease 4) Continue to work with case management for possible rehab placement once patient is stable.
[2019-04-26] MEDS: Vancomycin(*) 1,250 MG in NS 0.9% 250 ML* 250 ML IVPB SCH ×3 (00:48→13:54)
[2019-04-26] MEDS: ZOSYN 3.375 GM Q8H per EXTENDED INFUSION IVPB SCH ×6 (02:46→17:03)
[2019-04-26] MEDS: Acetaminophen TAB* 325 MG PO PRN ×3 (03:40→17:33)
[2019-04-26 07:03] LABS: ABS Basophils 0.1 10^3/ul (0-0.2); ABS Eosinophils 0.2 10^3/ul (0-0.6); ABS Lymphocytes 1.3 10^3/ul (1.0-4.8); ABS Neutrophils 5.8 10^3/ul (1.5-7.7); Eosinophil % 2.4 %; Hematocrit 35 % (42-52); Hemoglobin 12.2 g/dL (14.0-18.0); Mean Corpuscular HGB Conc 35 g/dL (31-36); Mean Corpuscular Hemoglobin 33 pg (27-31); Mean Corpuscular Volume 93 fL (80-94); Platelet Count 202 10^3/uL (150-450); Red Blood Count 3.72 10^6 /uL (4.18-5.48); Red Cell Distribution Width 13 % (10-15); White Blood Count 8.4 10^3/uL (3.5-10.8)
[2019-04-26 07:23] LABS: BUN/Creatinine Ratio 16.1 (8-20); C Reactive Protein 88.95 mg/L (<8.01); Calcium 8.5 mg/dL (8.6-10.3); EGFR African American 104.1 (>60); Potassium 3.1 mmol/L (3.5-5.0)
[2019-04-26] MEDS: Cyclobenzaprine TAB* 10 MG PO PRN ×2 (07:45→17:33)
[2019-04-26] MEDS: Insulin GLARGINE(*) 1 UNITS UNIT SUBCUT SCH (09:18)
[2019-04-26] MEDS: Insulin LISPRO* 1 UNITS UNIT SUBCUT SCH ×4 (09:18→22:08)
[2019-04-26] MEDS: Cholecalciferol TAB* 1000 UNITS PO SCH (09:20)
[2019-04-26] MEDS: DULoxetine DR CAP* 60 MG CAP.DR PO SCH (09:20)
[2019-04-26] MEDS: Losartan TAB* 25 MG PO SCH (09:20)
[2019-04-26] MEDS: Methylphenidate TAB* 10 MG PO SCH ×2 (09:20→22:00)
[2019-04-26] MEDS: Tamsulosin CAP* 0.4 MG PO SCH (09:21)
[2019-04-26] MEDS: Atorvastatin* 40 MG TAB PO SCH (09:21)
[2019-04-26] MEDS: Gabapentin CAP(*) 300 MG PO SCH ×3 (09:21→22:07)
[2019-04-26] MEDS: glipiZIDE TAB* 5 MG PO SCH ×2 (09:21→17:03)
--- NOTE | 2019-04-26 10:29 | PN ---
Subjective - Subjective Reason for Note: Progress Note History: He is feeling much improved today (C+ compared with lower). He has spasm in his back muscles. He has had no fever/sweats. There has been no altered mental state or confusion. He has no other focal symptoms. He has an indwelling Turner. Active Problems: Active Problems Acute urinary retention (Acute) R33.8 Hyperglycemia (Acute) R73.9 S/P lumbar laminectomy (Acute) Z98.890 Alcohol abuse (Chronic) F10.10 BPH (benign prostatic hypertrophy) (Chronic) N40.0 Depression (Chronic) F32.9 Gout (Chronic) M10.9 Hypercholesteremia (Chronic) E78.0 Hypertension (Chronic) I10 Type 2 diabetes mellitus, uncontrolled (Chronic) E11.65 Current Medications: Current Medications Acetaminophen (Tylenol Tab*) 650 mg PO Q4H PRN PRN Reason: PAIN - MILD Last Admin: 04/26/19 03:40 Dose: 650 mg Atorvastatin Calcium (Lipitor*) 40 mg PO QAM [facility] Last Admin: 04/26/19 09:21 Dose: 40 mg Cholecalciferol (Vitamin D Tab*) 2,000 units PO QAM [facility] Last Admin: 04/26/19 09:20 Dose: 2,000 units Cyclobenzaprine HCl (Flexeril Tab*) 10 mg PO TID PRN PRN Reason: SPASMS Last Admin: 04/26/19 07:45 Dose: 10 mg Dextrose (Dextrose 50% Vial 50 Ml*) 25 ml IV PUSH .FOR FS < 60 - SS PRN PRN Reason: FS < 60 Duloxetine HCl (Cymbalta Cap*) 60 mg PO DAILY [facility] Last Admin: 04/26/19 09:20 Dose: 60 mg Febuxostat (Uloric(Nf)) 40 mg PO BEDTIME [facility] Last Admin: 04/25/19 21:30 Dose: 40 mg Fluticasone Propionate (Flonase Nasal [place] 50mcg*) 2 spray BOTH NARES DAILY PRN PRN Reason: allergies Gabapentin (Neurontin Cap(*)) 300 mg PO TID [facility] Last Admin: 04/26/19 09:21 Dose: 300 mg Glipizide (Glucotrol Tab*) 10 mg PO 0800,1700 [facility] Last Admin: 04/26/19 09:21 Dose: 10 mg Piperacillin Sod/Tazobactam (Sod 3.375 gm/ Sodium Chloride) 100 mls @ 25 mls/ hr IVPB Q8H [facility] Last Admin: 04/26/19 09:36 Dose: 25 mls/hr Vancomycin HCl 1,250 mg/ (Sodium Chloride) 250 mls @ 166.667 mls/hr IVPB Q8H [facility] Last Admin: 04/26/19 06:07 Dose: 166.667 mls/hr Ibuprofen (Motrin Tab*) 400 mg PO TID PRN PRN Reason: .FEVER Insulin Glargine (Lantus(*)) 24 units SUBCUT Q24H [facility] Last Admin: 04/26/19 09:18 Dose: 24 unit Insulin Human Lispro (Humalog*) 0 units SUBCUT ACHS [facility]; Protocol Last Admin: 04/26/19 09:18 Dose: 2 unit Lorazepam (Ativan Tab(*)) 0 - 6 mg PO .PER WAM PARAMETERS [facility]; Protocol Last Admin: 04/24/19 04:11 Dose: 2 mg Losartan Potassium (Cozaar Tab*) 50 mg PO [facility] Last Admin: 04/26/19 09:20 Dose: 50 mg Magnesium Hydroxide (Milk Of Magnesia Liq*) 30 ml PO DAILY PRN PRN Reason: CONSTIPATION Last Admin: 04/25/19 08:37 Dose: 30 ml Methylphenidate HCl (Ritalin Tab*) 20 mg PO BID [facility] Last Admin: 04/26/19 09:20 Dose: 20 mg Oxycodone HCl (Roxycodone Tab*) 5 mg PO Q4H PRN PRN Reason: moderate pain Last Admin: 04/25/19 17:42 Dose: 5 mg Pharmacy Consult (Zosyn Per Pharmacy*) 1 note FOLLOW UP .ZOSYN PER PHARMACY [facility] Pharmacy Consult (Vancomycin Per Pharmacy*) 1 note FOLLOW UP . PRN PRN Reason: PER PROTOCOL Pharmacy Profile Note (Vancomycin Trough Check) 1 note FOLLOW UP 1300 ONE Stop: 04/26/19 13:01 Tamsulosin [facility] ([facility] Cap*) [facility] Admin: 04/26/19 09:21 Dose: 0.4 mg Home Medications: Home Medications Medication Instructions Recorded Confirmed Type Gabapentin CAP(*) [Neurontin 100 300 mg PO TID 04/27/18 04/21/19 History mg CAP(*)] Naproxen Sodium [Aleve] 2 cap PO QAM 04/27/18 04/21/19 History glipiZIDE [Glipizide] 5 mg PO BID 04/27/18 04/21/19 History Cholecalciferol TAB* [Vitamin D 2,000 units PO QAM 10/13/18 04/21/19 History TAB*] Duloxetine HCl 60 mg PO QAM 10/13/18 04/21/19 History Fluticasone NASAL SPRAY 50MCG* 2 spray BOTH NARES DAILY PRN 10/13/18 04/21/19 History [Flonase NASAL SPRAY 50MCG*] Methylphenidate HCl 20 mg PO BID 10/13/18 04/21/19 History [Methylphenidate HCl ER] Sildenafil Citrate [Viagra] 100 mg PO DAILY PRN 10/13/18 04/21/19 History Vitamin B Complex CAP* [B Complex 1 cap PO QAM 10/13/18 04/21/19 History CAP*] hydroCHLOROthiazide 12.5 mg PO QAM 10/13/18 04/21/19 History [Hydrochlorothiazide] Tamsulosin CAP* [Flomax CAP*] 0.4 mg PO QAM 12/05/18 04/21/19 History Atorvastatin Calcium [Lipitor] 40 mg PO QAM 04/09/19 04/21/19 History Febuxostat 40 mg PO BEDTIME 04/09/19 04/21/19 History Losartan Potassium [Cozaar] 50 mg PO QAM 04/09/19 04/21/19 History Allergies: Allergies Allergy/AdvReac Type Severity Reaction Status Date / Time amlodipine Allergy Dizziness Verified 04/21/19 06:38 levofloxacin Allergy SEVERE Verified 04/21/19 06:38 NEUROPATHY IN LEGS metformin Allergy Dizziness Verified 04/21/19 06:38 metoprolol Allergy Dizziness Verified 04/21/19 06:38 shellfish derived Allergy Airway Verified 04/21/19 06:38 Obstruction Sulfa (Sulfonamide Allergy Anaphylatic Verified 04/21/19 06:38 Antibiotics) Shock verapamil Allergy Dizziness Verified 04/21/19 06:38 NUTS Allergy Shortness Uncoded 04/21/19 06:38 of Breath Objective - Vital Signs Vital Signs: Vital Signs 04/25/19 04/25/19 04/25/19 10:41 12:37 12:48 Temperature 100.0 F Pulse Rate 96 Respiratory 18 18 16 Rate Blood Pressure 128/53 (mmHg) O2 Sat by Pulse 97 Oximetry 04/25/19 04/25/19 04/25/19 13:56 16:00 16:19 Temperature 98.7 F Pulse Rate 81 Respiratory 18 16 Rate Blood Pressure 122/45 (mmHg) O2 Sat by Pulse 96 96 Oximetry 04/25/19 04/25/19 04/25/19 17:41 17:42 20:37 Temperature 98.6 F Pulse Rate 91 Respiratory 18 18 16 Rate Blood Pressure 136/56 (mmHg) O2 Sat by Pulse 96 Oximetry 04/25/19 04/25/19 04/25/19 21:30 21:31 23:31 Temperature 98.9 F Pulse Rate 91 Respiratory 18 18 18 Rate Blood Pressure 145/77 (mmHg) O2 Sat by Pulse 91 Oximetry 04/26/19 04/26/19 04/26/19 00:00 00:54 04:09 Temperature 97.9 F Pulse Rate 80 Respiratory 18 18 18 Rate Blood Pressure 142/68 (mmHg) O2 Sat by Pulse 97 Oximetry 04/26/19 04/26/19 04/26/19 07:45 08:00 08:18 Temperature 98.4 F Pulse Rate 75 Respiratory 18 20 16 Rate Blood Pressure 156/96 (mmHg) O2 Sat by Pulse 93 93 Oximetry 04/26/19 04/26/19 09:21 09:37 Temperature Pulse Rate Respiratory 18 18 Rate Blood Pressure (mmHg) O2 Sat by Pulse Oximetry - Intake and Output Intake and Output: Intake & Output 04/23/19 04/24/19 04/25/19 04/26/19 11:59 11:59 11:59 11:59 Intake Total 4755 930 1384 3605 Output Total 100 1700 1400 2250 Balance 4655 -770 -16 1355 Intake: IV Fluids 1293 50 784 1715 ABX - PIPERACILLIN 224 219 ABX - VANCOMYCIN 560 550 NS (0.9%) 303 50 946 NS bolus 990 IVPB 112 400 110 ABX - PIPERACILLIN 110 ABX - VANCOMYCIN 290 ABX - ZOSYN 112 110 Oral 3350 790 638 5949 Output: Urine 100 0 Turner 1700 1400 2250 Other: Estimated Void Medium Date of Last Bowel 04/25/19 Movement # Bowel Movements 0 1 1 Estimated Stool Amount Large Small # Voids 1 ADLs: Meal Record Start: 04/21/19 15: 33 Freq: Status: Active Protocol: Created 04/21/19 15:33 [id number] (Rec: 04/21/19 15:33 [id number] SSU-M06) Document 04/22/19 10:02 [id number] (Rec: 04/22/19 10:03 [id number] SSU-C04) Document 04/22/19 14:43 [id number] (Rec: 04/22/19 14:44 [id number] SSU-C04) Document 04/24/19 13:37 [id number] (Rec: 04/24/19 13:38 [id number] SSU-C03) Document 04/25/19 09:52 [id number] (Rec: 04/25/19 09:53 [id number] SSU-M18) Intake and Output Start: 04/21/19 15: 33 Freq: DAILY@0600,1400,2200 Status: Active Protocol: Created 04/21/19 15:33 [id number] (Rec: 04/21/19 15:33 [id number] SSU-M06) Document 04/21/19 19:14 [id number] (Rec: 04/21/19 19:14 [id number] SSU-C10) Document 04/21/19 22:15 [id number] (Rec: 04/21/19 22:16 [id number] SSU-M17) Document 04/21/19 22:17 [id number] (Rec: 04/21/19 22:17 [id number] SSU-L03) Document 04/22/19 05:33 [id number] (Rec: 04/22/19 05:34 [id number] SSU-L02) Document 04/22/19 05:34 [id number] (Rec: 04/22/19 05:34 [id number] SSU-L02) Document 04/22/19 10:02 [id number] (Rec: 04/22/19 10:03 [id number] SSU-C04) Document 04/22/19 14:00 [id number] (Rec: 04/22/19 14:13 [id number] SSU-M16) Document 04/22/19 14:43 [id number] (Rec: 04/22/19 14:44 [id number] SSU-C04) Document 04/22/19 21:24 AWZ0301 (Rec: 04/22/19 21:24 [id number] SSU-M07) Document 04/22/19 21:28 [id number] (Rec: 04/22/19 21:30 [id number] SSU-M18) Document 04/22/19 22:00 UZF3271 (Rec: 04/22/19 22:22 [id number] SSU-M18) Document 04/23/19 05:37 [id number] (Rec: 04/23/19 05:38 [id number] SSU-M18) Document 04/23/19 14:00 [id number] (Rec: 04/23/19 14:41 [id number] SSU-C10) Document 04/23/19 22:31 [id number] (Rec: 04/23/19 22:31 [id number] SSU-M18) Document 04/24/19 05:25 [id number] (Rec: 04/24/19 05:27 [id number] SSU-M18) Document 04/24/19 14:47 [id number] (Rec: 04/24/19 14:48 [id number] SSU-C03) Document 04/24/19 21:00 CDG5213 (Rec: 04/24/19 21:55 [id number] SSU-C05) Document 04/25/19 06:02 [id number] (Rec: 04/25/19 06:09 [id number] SSU-M14) Document 04/25/19 09:52 [id number] (Rec: 04/25/19 09:53 [id number] SSU-M18) Document 04/25/19 14:29 [id number] (Rec: 04/25/19 14:30 [id number] SSU-C03) Document 04/25/19 14:32 [id number] (Rec: 04/25/19 14:33 [id number] SSU-C03) Document 04/25/19 20:48 [id number] (Rec: 04/25/19 20:51 [id number] SSU-M17) Document 04/25/19 22:39 [id number] (Rec: 04/25/19 22:49 [id number] SSU-M18) Document 04/26/19 05:40 [id number] (Rec: 04/26/19 06:08 [id number] U-M18) - Physical Exam General Physical Exam Comment: Warm and well perfused. Alert, oriented and conversational - cracking jokes General: No Cyanosis, No Anemia, No Jaundice, No Clubbing Lungs and Chest: Yes: Chest Expansion Full, Percussion Note Resonant, Vessicular Breath Sounds. No: Crackles, Wheezes, Respiratory Distress Heart Rate and Rhythm: Regular JVP: Not Elevated Additional Cardiovascular: Yes: Normal Heart Sounds. No: Heart Murmur, Pedal Edema Abdominal Exam: Yes: Distention - mild - gas, Soft, Bowel Sounds Present. No: Rigidity, Abdominal Tenderness, Guarding, Rebound Tenderness Results - Results Lab Results: Laboratory Results - last 24 hr 04/25/19 04/25/19 04/25/19 12:34 17:33 21:29 WBC RBC Hgb Hct MCV MCH MCHC RDW Plt Count MPV Neut % (Auto) Lymph % (Auto) [place] % (Auto) Eos % (Auto) Baso % (Auto) Absolute Neuts (auto) Absolute Lymphs (auto) Absolute Monos (auto) Absolute Eos (auto) Absolute Basos (auto) Absolute Nucleated RBC Nucleated RBC % Sodium Potassium Chloride Carbon Dioxide Anion Gap BUN Creatinine Est GFR ( Amer) Est GFR (Non-Af Amer) BUN/Creatinine Ratio Glucose POC Glucose (mg/dL) 214 H 115 H 172 H Calcium C-Reactive Protein 04/26/19 04/26/19 04/26/19 06:46 06:46 07:43 WBC 8.4 RBC 3.72 L Hgb 12.2 L Hct 35 L MCV 93 MCH 33 H MCHC 35 RDW 13 Plt Count 202 MPV 8.0 Neut % (Auto) 69.6 Lymph % (Auto) 15.0 [place] % (Auto) 12.4 Eos % (Auto) 2.4 Baso % (Auto) 0.6 Absolute Neuts (auto) 5.8 Absolute Lymphs (auto) 1.3 Absolute Monos (auto) 1.0 H Absolute Eos (auto) 0.2 Absolute Basos (auto) 0.1 Absolute Nucleated RBC 0.0 Nucleated RBC % 0.0 Sodium 137 Potassium 3.1 L Chloride 104 Carbon Dioxide 26 Anion Gap 7 BUN 14 Creatinine 0.87 Est GFR ( Amer) 104.1 Est GFR (Non-Af Amer) 86.0 BUN/Creatinine Ratio 16.1 Glucose 150 H POC Glucose (mg/dL) 161 H Calcium 8.5 L C-Reactive Protein 88.95 H Radiology Results: Patient Name: PORTER DAVILA Medical Record#: [id number] Ordering Physician: Sylvester Desai MD Acct.#: [id number] : 1945 Age: 73 Sex: M Location: SURGICAL STAY UNIT Exam Date: 04/25/19 1037 ADM Status: ADM IN Order Information: US RENAL COMPLETE Accession Number: [id number] CPT: 36303 INDICATION: Possible pyelonephritis, renal stone obstruction. COMPARISON: Comparison is made with a prior CT of the abdomen and pelvis from September 04, 2017. TECHNIQUE: Multiple real-time images of the kidneys were obtained. FINDINGS: The kidneys are normal in size shape and echogenicity. The right kidney measured 12.5 x 7.0 x 6.6 cm and the left kidney measured 12.7 x 5.0 x 5.3 cm. No significant focal abnormality or hydronephrosis is seen. There is a Turner catheter within the urinary bladder. IMPRESSION: NEGATIVE EXAM. <Electronically signed by Raul Arita MD in OV> 04/25/19 1537 Dictated By: Raul Arita MD Dictated Date/Time: 04/25/19 1535 Transcribed Date/Time: 04/25/19 153 Copy to: CC:Sylvester Desai MD; Pal Thao MD; Sofi Larkin MD; Aditya Gallego MD Imaging - [facility] Imaging - [facility] [address] [address] ph ([phone]) ph ([phone]) ph ([phone]) This report is only to be considered final once signed by the Provider(s) as displayed in the "<Electronically Signed by >" field (s). Absence of a signature indicates the report is in a draft status and still needs to be finalized. In the event this document was created by someone other than the signing Provider, the individual initiating the document will be listed in the "Entered by:" or "Dictated by:" fletcher. 1 of 1 Assessment - Problem List Assessment: Patient Problems Acute urinary retention (Acute) Hyperglycemia (Acute) S/P lumbar laminectomy (Acute) Alcohol abuse (Chronic) BPH (benign prostatic hypertrophy) (Chronic) Depression (Chronic) Gout (Chronic) Hypercholesteremia (Chronic) Hypertension (Chronic) Type 2 diabetes mellitus, uncontrolled (Chronic) Sepsis (Acute) Plan: Sepsis (Acute) This has resolved. His WBC, % neutrophils and CRP are all much improved. He is clinically no longer acutely infected. I will maintain his IV antibacterials until tomorrow. I suggest we stop them tomorrow prior to discharge and place him on cefdinir 300 mg bid for another 5 days or as per Dr. Thao if he consults. Microbiology remains negative. Acute urinary retention (Acute) His renal US was normal. He will follow with urology post discharge and they will remove his Turner Hyperglycemia (Acute) Type 2 diabetes mellitus, uncontrolled (Chronic) Improved - I will cut out his insulin. He can go home off insulin - on his usual medication S/P lumbar laminectomy (Acute) [facility]: Alcohol abuse (Chronic) BPH (benign prostatic hypertrophy) (Chronic) Depression (Chronic) Gout (Chronic) Hypercholesteremia (Chronic) Hypertension (Chronic) I discussed the above with Porter and his Dr. Sommer Davila. He plans to do more PT today and hopes to be discharged tomorrow.
[2019-04-26] MEDS: Potassium Chlor TAB* 20 MEQ TAB.ER PO SCH ×2 (11:16→22:08)
[2019-04-26] MEDS ORDERED: Vancomycin Trough Check NOTE FOLLOW UP ONE (13:00)
--- NOTE | 2019-04-26 21:34 | PN ---
Progress Note - Progress Note Date of Service: 04/26/19 SOAP: Subjective: []Patient was seen earlier today, he is POD #5 and reports feeling the best today then he felt since admission. He is alert to time, place and date. Although he continues to have occasional muscle spasm, his pain has improved. Now is using one assist with transfers and did well yesterday walking with PT. His vitals has remained stable, currently he denies fever or chills. The latest white count is better and remained in normal range. Patient has continued to improve, still will possible need to rehab. Objective: []General: Patient is sitting in chair eating breakfast. NAD A&O x3 CN II - XII grossly intact, EOM intact, pupils are equal, Upper extremity motor strength intact 5/5, lower extremity motor strength 5/5 bilaterally. Derm: Wound C/D/I no drainage seen on dressings. There is some bruising in the lumbosacral area. Assessment: []73 y/o male s/p TLIF of L4/L5 POD #5 patient is recovering well, his suspected post operative sepsis has improved with currently regimen of IV antibiotics. He still has in dwelling catheter as recommended by urology for urinary retention. He continues to have some post pain mostly muscle spams, but is gradually improving. He is requiring less assistance with transferring from bed to chair and with ambulation. He has remained stable over the last 24 - 48 hours . Plan: [ 1) Continue to encourage ambulation 2) Continue to us incentive spiromete 3) Follow medicine and infectious disease recommendation 4) Continue to work with PT/OT and follow up recommendation for discharge placement 5) Follow up with case management for acute rehab referals 6) Discharge planning 7) Follow up with urology
[2019-04-26] MEDS: CMCS: Febuxostat(NF) 40 MG TAB PO SCH (22:07)
[2019-04-26] MEDS: Vancomycin(*) 1,000 MG in NS 0.9% 250 ML* 250 ML IVPB SCH (23:13)
[2019-04-27] MEDS: ZOSYN 3.375 GM Q8H per EXTENDED INFUSION IVPB SCH ×6 (01:33→17:19)
[2019-04-27] MEDS: Cyclobenzaprine TAB* 10 MG PO PRN ×2 (03:48→20:44)
[2019-04-27] MEDS: Acetaminophen TAB* 325 MG PO PRN ×4 (03:48→22:46)
[2019-04-27] MEDS: oxyCODONE TAB* 5 MG TAB PO PRN ×2 (04:36→15:43)
[2019-04-27 06:19] LABS: BUN/Creatinine Ratio 14.4 (8-20); C Reactive Protein 65.16 mg/L (<8.01); Calcium 8.7 mg/dL (8.6-10.3); EGFR African American 100.1 (>60); EGFR Non-African American 82.7 (>60); Potassium 3.3 mmol/L (3.5-5.0)
[2019-04-27] MEDS: Vancomycin(*) 1,000 MG in NS 0.9% 250 ML* 250 ML IVPB SCH (07:21)
[2019-04-27] MEDS: DULoxetine DR CAP* 60 MG CAP.DR PO SCH (07:48)
[2019-04-27] MEDS: Cholecalciferol TAB* 1000 UNITS PO SCH (07:48)
[2019-04-27] MEDS: Methylphenidate TAB* 10 MG PO SCH ×2 (07:48→21:25)
[2019-04-27] MEDS: Losartan TAB* 25 MG PO SCH (07:48)
[2019-04-27] MEDS: Atorvastatin* 40 MG TAB PO SCH (07:48)
[2019-04-27] MEDS: Potassium Chlor TAB* 20 MEQ TAB.ER PO SCH ×2 (07:48→20:44)
[2019-04-27] MEDS: Gabapentin CAP(*) 300 MG PO SCH ×3 (07:48→20:44)
[2019-04-27] MEDS: Tamsulosin CAP* 0.4 MG PO SCH (07:49)
[2019-04-27] MEDS: glipiZIDE TAB* 5 MG PO SCH ×2 (07:49→17:18)
[2019-04-27] MEDS: Insulin LISPRO* 1 UNITS UNIT SUBCUT SCH ×4 (07:49→21:24)
--- NOTE | 2019-04-27 09:34 | PN ---
Subjective - Subjective Reason for Note: Progress Note History: He is feeling much better and is fully engaged in his medical and surgical recovery. He has no other new problems - aside from some issues with balance. He has had no sweats or fevers. Active Problems: Active Problems Acute urinary retention (Acute) R33.8 Hyperglycemia (Acute) R73.9 S/P lumbar laminectomy (Acute) Z98.890 Alcohol abuse (Chronic) F10.10 BPH (benign prostatic hypertrophy) (Chronic) N40.0 Depression (Chronic) F32.9 Gout (Chronic) M10.9 Hypercholesteremia (Chronic) E78.0 Hypertension (Chronic) I10 Type 2 diabetes mellitus, uncontrolled (Chronic) E11.65 Current Medications: Current Medications Acetaminophen (Tylenol Tab*) 650 mg PO Q4H PRN PRN Reason: PAIN - MILD Last Admin: 04/27/19 07:48 Dose: 650 mg Atorvastatin Calcium (Lipitor*) 40 mg PO QAM [facility] Last Admin: 04/27/19 07:48 Dose: 40 mg Cholecalciferol (Vitamin D Tab*) 2,000 units PO QAM [facility] Last Admin: 04/27/19 07:48 Dose: 2,000 units Cyclobenzaprine HCl (Flexeril Tab*) 10 mg PO TID PRN PRN Reason: SPASMS Last Admin: 04/27/19 03:48 Dose: 10 mg Dextrose (Dextrose 50% Vial 50 Ml*) 25 ml IV PUSH .FOR FS < 60 - SS PRN PRN Reason: FS < 60 Duloxetine HCl (Cymbalta Cap*) 60 mg PO DAILY [facility] Last Admin: 04/27/19 07:48 Dose: 60 mg Febuxostat (Uloric(Nf)) 40 mg PO BEDTIME [facility] Last Admin: 04/26/19 22:07 Dose: 40 mg Fluticasone Propionate (Flonase Nasal Crescent 50mcg*) 2 spray BOTH NARES DAILY PRN PRN Reason: allergies Gabapentin (Neurontin Cap(*)) 300 mg PO TID [facility] Last Admin: 04/27/19 07:48 Dose: 300 mg Glipizide (Glucotrol Tab*) 10 mg PO 0800,1700 [facility] Last Admin: 04/27/19 07:49 Dose: 10 mg Piperacillin Sod/Tazobactam (Sod 3.375 gm/ Sodium Chloride) 100 mls @ 25 mls/ hr IVPB Q8H [facility] Last Admin: 04/27/19 01:33 Dose: 25 mls/hr Vancomycin HCl 1,000 mg/ (Sodium Chloride) 250 mls @ 166.667 mls/hr IVPB Q8H [facility] Last Admin: 04/27/19 07:21 Dose: 166.667 mls/hr Ibuprofen (Motrin Tab*) 400 mg PO TID PRN PRN Reason: .FEVER Insulin Human Lispro (Humalog*) 0 units SUBCUT ACHS [facility]; Protocol Last Admin: 04/27/19 07:49 Dose: 1 unit Lorazepam (Ativan Tab(*)) 0 - 6 mg PO .PER WAM PARAMETERS [facility]; Protocol Last Admin: 04/24/19 04:11 Dose: 2 mg Losartan Potassium ([facility]ar Tab*) [facility] Last Admin: 04/27/19 07:48 Dose: 50 mg Magnesium Hydroxide (Milk Of Magnesia Liq*) 30 ml PO DAILY PRN PRN Reason: CONSTIPATION Last Admin: 04/25/19 08:37 Dose: 30 ml Methylphenidate HCl (Ritalin Tab*) 20 mg PO BID [facility] Last Admin: 04/27/19 07:48 Dose: 20 mg Oxycodone HCl (Roxycodone Tab*) 5 mg PO Q4H PRN PRN Reason: moderate pain Last Admin: 04/27/19 04:36 Dose: 5 mg Pharmacy Consult (Zosyn Per Pharmacy*) 1 note FOLLOW UP .ZOSYN PER PHARMACY [facility] Pharmacy Consult (Vancomycin Per Pharmacy*) 1 note FOLLOW UP . PRN PRN Reason: PER PROTOCOL Pharmacy Profile Note (Vancomycin Trough Check) 1 note FOLLOW UP 0630 ONE Stop: 04/28/19 06:31 Potassium Chloride (Klor Con Er Tab*) 20 meq PO BID [facility] Last Admin: 04/27/19 07:48 Dose: 20 meq Tamsulosin HCl (Flomax Cap*) 0.4 mg PO QAM [facility] Last Admin: 04/27/19 07:49 Dose: 0.4 mg Home Medications: Home Medications Medication Instructions Recorded Confirmed Type Gabapentin CAP(*) [Neurontin 100 300 mg PO TID 04/27/18 04/21/19 History mg CAP(*)] Naproxen Sodium [Aleve] 2 cap PO QAM 04/27/18 04/21/19 History glipiZIDE [Glipizide] 5 mg PO BID 04/27/18 04/21/19 History Cholecalciferol TAB* [Vitamin D 2,000 units PO QAM 10/13/18 04/21/19 History TAB*] Duloxetine HCl 60 mg PO QAM 10/13/18 04/21/19 History Fluticasone NASAL SPRAY 50MCG* 2 spray BOTH NARES DAILY PRN 10/13/18 04/21/19 History [Flonase NASAL SPRAY 50MCG*] Methylphenidate HCl 20 mg PO BID 10/13/18 04/21/19 History [Methylphenidate HCl ER] Sildenafil Citrate [Viagra] 100 mg PO DAILY PRN 10/13/18 04/21/19 History Vitamin B Complex CAP* [B Complex 1 cap PO QAM 10/13/18 04/21/19 History CAP*] hydroCHLOROthiazide 12.5 mg PO QAM 10/13/18 04/21/19 History [Hydrochlorothiazide] Tamsulosin CAP* [Flomax CAP*] 0.4 mg PO QAM 12/05/18 04/21/19 History Atorvastatin Calcium [Lipitor] 40 mg PO QAM 04/09/19 04/21/19 History Febuxostat 40 mg PO BEDTIME 04/09/19 04/21/19 History Losartan Potassium [Cozaar] 50 mg PO QAM 04/09/19 04/21/19 History Allergies: Allergies Allergy/AdvReac Type Severity Reaction Status Date / Time amlodipine Allergy Dizziness Verified 04/21/19 06:38 levofloxacin Allergy SEVERE Verified 04/21/19 06:38 NEUROPATHY IN LEGS metformin Allergy Dizziness Verified 04/21/19 06:38 metoprolol Allergy Dizziness Verified 04/21/19 06:38 shellfish derived Allergy Airway Verified 04/21/19 06:38 Obstruction Sulfa (Sulfonamide Allergy Anaphylatic Verified 04/21/19 06:38 Antibiotics) Shock verapamil Allergy Dizziness Verified 04/21/19 06:38 NUTS Allergy Shortness Uncoded 04/21/19 06:38 of Breath Objective - Vital Signs Vital Signs: Vital Signs 04/26/19 04/26/19 04/26/19 09:37 11:18 11:37 Temperature 99.4 F Pulse Rate 87 Respiratory 18 18 16 Rate Blood Pressure 143/73 (mmHg) O2 Sat by Pulse 95 Oximetry 04/26/19 04/26/19 04/26/19 13:53 15:48 16:00 Temperature 97.7 F Pulse Rate 82 Respiratory 18 16 Rate Blood Pressure 158/90 (mmHg) O2 Sat by Pulse 98 98 Oximetry 04/26/19 04/26/19 04/26/19 17:01 17:33 20:01 Temperature Pulse Rate Respiratory 18 18 18 Rate Blood Pressure (mmHg) O2 Sat by Pulse Oximetry 04/26/19 04/26/19 04/26/19 20:25 20:26 22:07 Temperature 97.8 F Pulse Rate 79 Respiratory 18 18 18 Rate Blood Pressure 135/72 (mmHg) O2 Sat by Pulse 93 Oximetry 04/26/19 04/27/19 04/27/19 23:06 00:00 00:56 Temperature 97.6 F Pulse Rate 78 Respiratory 18 18 Rate Blood Pressure 151/94 (mmHg) O2 Sat by Pulse 97 97 Oximetry 04/27/19 04/27/19 04/27/19 03:17 03:48 03:52 Temperature 98.3 F Pulse Rate 81 Respiratory 18 18 18 Rate Blood Pressure 166/89 (mmHg) O2 Sat by Pulse 95 Oximetry 04/27/19 04/27/19 04/27/19 04:36 07:46 07:48 Temperature 97.4 F Pulse Rate 78 Respiratory 18 20 16 Rate Blood Pressure 171/80 (mmHg) O2 Sat by Pulse 96 Oximetry - Intake and Output Intake and Output: Intake & Output 04/24/19 04/25/19 04/26/19 04/27/19 11:59 11:59 11:59 11:59 Intake Total 930 1384 3605 1473 Output Total 1700 1400 2250 1850 Balance -770 -16 0438 -603 Intake: IV Fluids 50 784 1715 150 ABX - PIPERACILLIN 224 219 110 ABX - VANCOMYCIN 560 550 NS (0.9%) 50 946 40 IVPB 400 110 583 ABX - PIPERACILLIN 110 ABX - VANCOMYCIN 290 583 ABX - ZOSYN 110 Oral 337 929 7174 740 Output: Urine 0 450 Turner 1700 1400 2250 1400 Other: Date of Last Bowel 04/25/19 Movement # Bowel Movements 1 1 Estimated Stool Amount Large Small ADLs: Meal Record Start: 04/21/19 15: 33 Freq: Status: Active Protocol: Created 04/21/19 15:33 [id number] (Rec: 04/21/19 15:33 [id number] SSU-M06) Document 04/22/19 10:02 [id number] (Rec: 04/22/19 10:03 [id number] SSU-C04) Document 04/22/19 14:43 [id number] (Rec: 04/22/19 14:44 [id number] SSU-C04) Document 04/24/19 13:37 [id number] (Rec: 04/24/19 13:38 [id number] SSU-C03) Document 04/25/19 09:52 [id number] (Rec: 04/25/19 09:53 [id number] SSU-M18) Intake and Output Start: 04/21/19 15: 33 Freq: DAILY@0600,1400,2200 Status: Active Protocol: Created 04/21/19 15:33 [id number] (Rec: 04/21/19 15:33 [id number] SSU-M06) Document 04/21/19 19:14 [id number] (Rec: 04/21/19 19:14 [id number] SSU-C10) Document 04/21/19 22:15 [id number] (Rec: 04/21/19 22:16 [id number] SSU-M17) Document 04/21/19 22:17 [id number] (Rec: 04/21/19 22:17 [id number] SSU-L03) Document 04/22/19 05:33 [id number] (Rec: 04/22/19 05:34 [id number] SSU-L02) Document 04/22/19 05:34 [id number] (Rec: 04/22/19 05:34 [id number] SSU-L02) Document 04/22/19 10:02 [id number] (Rec: 04/22/19 10:03 [id number] SSU-C04) Document 04/22/19 14:00 [id number] (Rec: 04/22/19 14:13 [id number] SSU-M16) Document 04/22/19 14:43 [id number] (Rec: 04/22/19 14:44 [id number] SSU-C04) Document 04/22/19 21:24 [id number] (Rec: 04/22/19 21:24 [id number] SSU-M07) Document 04/22/19 21:28 [id number] (Rec: 04/22/19 21:30 [id number] SSU-M18) Document 04/22/19 22:00 [id number] (Rec: 04/22/19 22:22 [id number] SSU-M18) Document 04/23/19 05:37 [id number] (Rec: 04/23/19 05:38 [id number] SSU-M18) Document 04/23/19 14:00 [id number] (Rec: 04/23/19 14:41 [id number] SSU-C10) Document 04/23/19 22:31 [id number] (Rec: 04/23/19 22:31 [id number] SSU-M18) Document 04/24/19 05:25 [id number] (Rec: 04/24/19 05:27 [id number] SSU-M18) Document 04/24/19 14:47 [id number] (Rec: 04/24/19 14:48 [id number] SSU-C03) Document 04/24/19 21:00 [id number] (Rec: 04/24/19 21:55 [id number] SSU-C05) Document 04/25/19 06:02 [id number] (Rec: 04/25/19 06:09 [id number] SSU-M14) Document 04/25/19 09:52 [id number] (Rec: 04/25/19 09:53 [id number] SSU-M18) Document 04/25/19 14:29 [id number] (Rec: 04/25/19 14:30 [id number] SSU-C03) Document 04/25/19 14:32 [id number] (Rec: 04/25/19 14:33 [id number] SSU-C03) Document 04/25/19 20:48 [id number] (Rec: 04/25/19 20:51 [id number] SSU-M17) Document 04/25/19 22:39 [id number] (Rec: 04/25/19 22:49 [id number] SSU-M18) Document 04/26/19 05:40 [id number] (Rec: 04/26/19 06:08 [id number] SSU-M18) Document 04/26/19 14:22 [id number] (Rec: 04/26/19 14:23 [id number] SSU-M18) Document 04/26/19 22:00 [id number] (Rec: 04/26/19 22:27 [id number] SSU-C05) Results - Results Lab Results: Laboratory Results - last 24 hr 04/25/19 04/26/19 04/26/19 21:29 12:21 13:17 Sodium Potassium Chloride Carbon Dioxide Anion Gap BUN Creatinine Est GFR ( Amer) Est GFR (Non-Af Amer) BUN/Creatinine Ratio Glucose POC Glucose (mg/dL) 172 H 153 H Calcium C-Reactive Protein Vancomycin Trough 19.6 04/26/19 04/26/19 04/27/19 17:02 21:58 05:34 Sodium 138 Potassium 3.3 L Chloride 105 Carbon Dioxide 25 Anion Gap 8 BUN 13 Creatinine 0.90 Est GFR ( Amer) 100.1 Est GFR (Non-Af Amer) 82.7 BUN/Creatinine Ratio 14.4 Glucose 143 H POC Glucose (mg/dL) 142 H 155 H Calcium 8.7 C-Reactive Protein 65.16 H Vancomycin Trough Assessment - Problem List Assessment: Patient Problems Acute urinary retention (Acute) Hyperglycemia (Acute) S/P lumbar laminectomy (Acute) Alcohol abuse (Chronic) BPH (benign prostatic hypertrophy) (Chronic) Depression (Chronic) Gout (Chronic) Hypercholesteremia (Chronic) Hypertension (Chronic) Type 2 diabetes mellitus, uncontrolled (Chronic) Sepsis (Acute) Plan: His acute infectious illness is now well under control and I think he can start oral antibiotics. I spoke with Dr. Thao and he thinks cefdinir is a reasonable choice. His diabetes is now under control and he will be able to stop the insulin on discharge. I will seem him for a transition of care visit shortly after discharge.
--- NOTE | 2019-04-27 10:23 | PN ---
Progress Note - Progress Note Date of Service: 04/27/19 SOAP: Subjective: CC: Postop fevers HPI: Mr. Allred is a 73 yo male with PMH significant for hx prostatitis, DM2, HTN, depression, GOUT, HLD, BPH, obesity, peripheral neuropathy, DENAE, and osteoarthritis. He presented to the hospital for elective back surgery. Denies fever, chills, ABD pain, nausea, vomiting. He reports 1 loose stool daily. He continues to have a urinary catheter in place for urinary retention. He is having lower back muscle spams when changing positions. Objective: Vital Signs - 8 hr 04/27/19 04/27/19 04/27/19 04:36 07:46 07:48 Temperature 97.4 F Pulse Rate 78 Respiratory 18 20 16 Rate Blood Pressure 171/80 (mmHg) O2 Sat by Pulse 96 Oximetry Physical Exam: General: NAD, laying in bed HEENT: Moist MM, no thrush Neurological: Alert and Oriented x 4 Cardiovascular: Heart rate regular Respiratory: Lung sounds clear ABD: Bowel sounds present; ABD soft, non tender and large MSK: Good strength in bilateral LEs. No tenderness with palpation of the back Skin: Dressing to bilateral lower back, no surrounding erythema Laboratory Results - last 24 hr 04/26/19 04/26/19 04/27/19 17:02 21:58 05:34 Sodium 138 Potassium 3.3 L Chloride 105 Carbon Dioxide 25 Anion Gap 8 BUN 13 Creatinine 0.90 Est GFR ( Amer) 100.1 Est GFR (Non-Af Amer) 82.7 BUN/Creatinine Ratio 14.4 Glucose 143 H POC Glucose (mg/dL) 142 H 155 H Calcium 8.7 C-Reactive Protein 65.16 H Vancomycin Trough Microbiology 04/22/19 18:04 Aerobic Blood Culture - Preliminary Blood Venous No Growth Day 4 Anaerobic Blood Culture - Preliminary No Growth Day 4 04/22/19 17:52 Aerobic Blood Culture - Preliminary Blood Venous No Growth Day 4 Anaerobic Blood Culture - Preliminary No Growth Day 4 04/25/19 11:15 Legionella Urinary Antigen - Final Urine Negative Legionella Antigen Assessment: 1. Postop Fever. Resolved. Diff Dx: PNA, UTI, surgical site infection. Chest xray with no acute changes. Urine culture from 04/22 , UA from 04/23 didn't reflux to culture. Blood cultures with no growth to date. No sign of surgical site infection, sites benign. Left knee asymptomatic. 2. DM2. 3. Obesity. BMI 30.9 4. Hx left total knee arthroplasty. 5. Hx prostatitis. 6. LEVAQUIN and SULFA allergy. Plan: Recommend discontinuing Vancomycin and Zosyn.
--- NOTE | 2019-04-27 10:53 | PN ---
Progress Note - Progress Note Date of Service: 04/27/19 SOAP: Subjective: []Patient is POD # 6, he reports some discomfort overnight, but had no acute changes. He continues to have muscle spasms with transitioning from sitting to standing. Presently still requires a one assist when going to the rest room. His is at bed side this morning and expressed some concerns about him coming home, because he still is unsteady with walking. His vitals have been stable overnight and final culture report is negative. Medicine and and infectious I&D are recommending patient switch oral antibiotics today. Overall patient has made some substantial improvements over the weekend and would possible need to acute rehab. Currently case filler is working on placement into [facility]. Objective: [] Initial Vitals Temp Pulse Resp BP Pulse Ox 98.6 F 85 18 133/72 94 04/09/19 10:33 04/09/19 10:33 04/09/19 10:33 04/09/19 10:33 04/09/19 10:33 General: Patient is sitting in chair. NAD A&O x3 CN II - XII grossly intact, EOM intact, pupils are equal, Upper extremity motor strength intact 5/5, lower extremity motor strength 5/5 bilaterally. Derm: Wound C/D/I no drainage seen on dressings. There is some bruising in the lumbosacral area. Assessment: [] 73 y/o male post TLIF at L4/L5 POD #6 patient is doing better, continues to have muscle spasm with transitioning form sitting to standing, still needs assistance with transferring and ambulation. His medical issues have been optimized. Plan: [] 1) Follow medicine and infectious disease recommendations. 2) Pain control as needed 3) Continue to work with PT/OT 4) Follow up placement into PMRU or Acute rehab.
[2019-04-27] MEDS ORDERED: Methocarbamol* 100 MG/ML 10 ML VIAL IV ONE (11:04)
[2019-04-27] MEDS ORDERED: Hydrochlorothiazide TAB* 25 MG ONE (11:39)
[2019-04-27] MEDS: Hydrochlorothiazide TAB* 25 MG PO SCH (11:58)
[2019-04-27] MEDS: Cefdinir cap* 300 MG CAP PO SCH (20:44)
[2019-04-27] MEDS: CMCS: Febuxostat(NF) 40 MG TAB PO SCH (20:44)
[2019-04-28] MEDS: ZOSYN 3.375 GM Q8H per EXTENDED INFUSION IVPB SCH ×4 (01:10→09:42)
[2019-04-28] MEDS: oxyCODONE TAB* 5 MG TAB PO PRN ×4 (01:15→23:55)
[2019-04-28 06:22] LABS: EGFR African American 97.6 (>60); EGFR Non-African American 80.6 (>60)
[2019-04-28] MEDS ORDERED: Vancomycin Trough Check NOTE FOLLOW UP ONE (06:30)
[2019-04-28] MEDS: Acetaminophen TAB* 325 MG PO PRN (07:52)
[2019-04-28] MEDS: glipiZIDE TAB* 5 MG PO SCH ×2 (07:53→17:35)
[2019-04-28] MEDS: Cyclobenzaprine TAB* 10 MG PO PRN ×2 (07:55→17:36)
--- NOTE | 2019-04-28 08:15 | PN ---
Progress Note - Progress Note SOAP: Patient seen and examined. Agree with above. Patient doing very well. Awaiting insurance approval for rehabilitation. VSS, Afebrile. W amanda gomez d. Neuro intact. Essie Gallego MD <Aditya Gallego - Last Filed: 04/28/19 20:27> - Progress Note Date of Service: 04/28/19 SOAP: Subjective: []Patient is POD #7 there were no acute changes overnight, his pain has been well controlled. He was accepted to [facility] and is currently pending authorization from insurance company. He had no acute issues over night Objective: [] Initial Vitals Temp Pulse Resp BP Pulse Ox 98.6 F 85 18 133/72 94 04/09/19 10:33 04/09/19 10:33 04/09/19 10:33 04/09/19 10:33 04/09/19 10:33 General: Patient is resting in bed. NAD Neuro: A&O x3 CN II - XII grossly intact, EOM intact, pupils are equal, Upper extremity motor strength intact 5/5, lower extremity motor strength 5/5 bilaterally. Derm: Wound C/D/I no drainage seen on dressings. There is some bruising in the lumbosacral area. Assessment: [] 73 y/o male post TLIF of L4/L5 POD #7 patient is doing much better, his ambulation has improved currently being considered for possible placement to [facility] or might possible go home. Currently pending insurance authorization to rehab. Plan: []Follow up with medicine recommendation of oral antibiotics the duration of treatment Continue to encourage ambulation Continue to work with PT/OT Follow up with case resource manager for insurance authorization Follow up with urology <Bassam Kenney - Last Filed: 04/29/19 18:28>
[2019-04-28] MEDS: Insulin LISPRO* 1 UNITS UNIT SUBCUT SCH ×4 (09:13→21:37)
[2019-04-28] MEDS: Cholecalciferol TAB* 1000 UNITS PO SCH (09:37)
[2019-04-28] MEDS: Atorvastatin* 40 MG TAB PO SCH (09:37)
[2019-04-28] MEDS: Potassium Chlor TAB* 20 MEQ TAB.ER PO SCH ×2 (09:38→21:46)
[2019-04-28] MEDS: Tamsulosin CAP* 0.4 MG PO SCH (09:38)
[2019-04-28] MEDS: Cefdinir cap* 300 MG CAP PO SCH ×2 (09:38→21:46)
[2019-04-28] MEDS: Gabapentin CAP(*) 300 MG PO SCH ×3 (09:39→21:46)
[2019-04-28] MEDS: Losartan TAB* 25 MG PO SCH (09:39)
[2019-04-28] MEDS: Methylphenidate TAB* 10 MG PO SCH ×2 (09:39→21:46)
[2019-04-28] MEDS: DULoxetine DR CAP* 60 MG CAP.DR PO SCH (09:39)
[2019-04-28] MEDS: Hydrochlorothiazide TAB* 25 MG PO SCH (09:39)
[2019-04-28] MEDS: CMCS: Febuxostat(NF) 40 MG TAB PO SCH (21:46)
[2019-04-29 07:37] VITALS: BP 153/81
[2019-04-29] MEDS: Gabapentin CAP(*) 300 MG PO SCH (08:48)
[2019-04-29] MEDS: oxyCODONE TAB* 5 MG TAB PO PRN (08:49)
[2019-04-29] MEDS: Potassium Chlor TAB* 20 MEQ TAB.ER PO SCH (08:49)
[2019-04-29] MEDS: Tamsulosin CAP* 0.4 MG PO SCH (08:49)
[2019-04-29] MEDS: Atorvastatin* 40 MG TAB PO SCH (08:49)
[2019-04-29] MEDS: Cholecalciferol TAB* 1000 UNITS PO SCH (08:49)
[2019-04-29] MEDS: Methylphenidate TAB* 10 MG PO SCH (08:49)
[2019-04-29] MEDS: DULoxetine DR CAP* 60 MG CAP.DR PO SCH (08:49)
[2019-04-29] MEDS: glipiZIDE TAB* 5 MG PO SCH (08:50)
[2019-04-29] MEDS: Cefdinir cap* 300 MG CAP PO SCH (08:50)
[2019-04-29] MEDS: Hydrochlorothiazide TAB* 25 MG PO SCH (08:50)
[2019-04-29] MEDS: Losartan TAB* 25 MG PO SCH (08:50)
[2019-04-29] MEDS: Insulin LISPRO* 1 UNITS UNIT SUBCUT SCH (08:55)
--- NOTE | 2019-04-29 18:36 | PN ---
Progress Note - Progress Note Date of Service: 04/29/19 SOAP: Subjective: []Patient seen early this morning, he was upset because felt he was not being assisted with walking frequently enough. He as been stable over night and was excepted in PMRU pending insurance authorization. After speaking with his case the insurance approved him for rehab, he attempted to refuse placement, but after speaking with case briefer who spoke with his and felt that she was unable accommodate him at home. The case briefer and I went in spoke with him and explained the situation and he was agreeable to going to rehab. He has been stable overnight with no acute changes, still has coto catheter . Objective: [] General: Patient is resting in bed. NAD Neuro: A&O x3 CN II - XII grossly intact, EOM intact, pupils are equal, Upper extremity motor strength intact 5/5, lower extremity motor strength 5/5 bilaterally. Derm: Wound C/D/I no drainage seen on dressings. There is some bruising in the lumbosacral area. Assessment: [] 73 y/o male post L4/L5 TLIF POD #8, patient is stable and ready for rehab. Plan: [] 1) Changes dressing 2) D/C to rehab 3) Follow up with urology for urine retention
== END 2019-04-29 11:00 | DRG 460 ==
LOC: AA 04-21 05:49 → INTOOBSV 04-21 05:49 → OBSVTOIN 04-21 15:00 → AA 04-21 15:00 → SSU 04-21 15:23
PROVIDERS: ADMIT Neurological Surgery; ATTEND Neurological Surgery
PROC: 0QB20ZZ Excision of Right Pelvic Bone, Open Approach (ICD-10-PCS; 2019-04-21)
PROC: 01NB0ZZ Release Lumbar Nerve, Open Approach (ICD-10-PCS; 2019-04-21)
PROC: 0SB20ZZ Excision of Lumbar Vertebral Disc, Open Approach (ICD-10-PCS; 2019-04-21)
PROC: 4A11X4G Monitoring of Peripheral Nervous Electrical Activity, Intraoperative, External Approach (ICD-10-PCS; 2019-04-21)
PROC: 8E0WXBZ Computer Assisted Procedure of Trunk Region (ICD-10-PCS; 2019-04-21)
PROC: 0SG00AJ Fusion of Lumbar Vertebral Joint with Interbody Fusion Device, Posterior Approach, Anterior Column, Open Approach (ICD-10-PCS; principal; 2019-04-21 07:30)
DX: M47.26 Other spondylosis with radiculopathy, lumbar region (principal); R65.10 Systemic inflammatory response syndrome (SIRS) of non-infectious origin without acute organ dysfunction; M43.16 Spondylolisthesis, lumbar region; M48.061 Spinal stenosis, lumbar region without neurogenic claudication; I10 Essential (primary) hypertension; F32.9 Major depressive disorder, single episode, unspecified; M10.9 Gout, unspecified; E78.00 Pure hypercholesterolemia, unspecified; E11.42 Type 2 diabetes mellitus with diabetic polyneuropathy; E66.9 Obesity, unspecified; M19.90 Unspecified osteoarthritis, unspecified site; Z96.652 Presence of left artificial knee joint; E78.5 Hyperlipidemia, unspecified; G47.33 Obstructive sleep apnea (adult) (pediatric); N40.0 Benign prostatic hyperplasia without lower urinary tract symptoms; Z87.442 Personal history of urinary calculi; Z83.3 Family history of diabetes mellitus; Z82.49 Family history of ischemic heart disease and other diseases of the circulatory system; Z88.2 Allergy status to sulfonamides; Z88.8 Allergy status to other drugs, medicaments and biological substances; Z68.30 Body mass index [BMI] 30.0-30.9, adult; Z88.1 Allergy status to other antibiotic agents; Z91.018 Allergy to other foods; Z91.013 Allergy to seafood; Z87.891 Personal history of nicotine dependence; Z85.828 Personal history of other malignant neoplasm of skin; E11.65 Type 2 diabetes mellitus with hyperglycemia; R32 Unspecified urinary incontinence; E86.1 Hypovolemia; F10.10 Alcohol abuse, uncomplicated; Y90.9 Presence of alcohol in blood, level not specified; R33.9 Retention of urine, unspecified
CPT/HCPCS: 36415; 71045; 72100; 76000; 76775; 80048; 80053; 80076; 80202; 81003; 81015; 82565; 83605; 84153; 84520; 85025; 86140; 87040; 87899; A9270-GY; C1713; C9359; G0103; G8987-GO-CI; G8988-GO-CI; G8989-GO-CI; J0330; J0690; J1100; J1815; J2250; J2543; J2704; J2800; J3010; J3370

== ENCOUNTER 2019-04-29 08:37 | Inpatient (IN) | payer OTHER ==
[2019-04-29] MEDS ORDERED: Bisacodyl SUPP* 10 MG SUPP PR PRN (13:59)
[2019-04-29] MEDS ORDERED: Magnesium Hydroxide LIQ* 30 ML UDC PO PRN (13:59)
[2019-04-29] MEDS ORDERED: Dextrose 50% VIAL 50 ml IV PUSH PRN (14:07)
[2019-04-29] MEDS: glipiZIDE TAB* 5 MG PO SCH (16:51)
[2019-04-29] MEDS ORDERED: Methylphenidate TAB* 10 MG PO SCH (17:00)
[2019-04-29] MEDS: Insulin LISPRO* 1 UNITS UNIT SUBCUT SCH ×2 (18:00→20:45)
[2019-04-29] MEDS: oxyCODONE TAB* 5 MG TAB PO PRN (18:03)
[2019-04-29] MEDS: Gabapentin CAP(*) 300 MG PO SCH (21:02)
[2019-04-29] MEDS: Senna TAB 8.6 mg* TAB PO SCH (21:02)
[2019-04-29] MEDS: Potassium Chlor TAB* 20 MEQ TAB.ER PO SCH (21:02)
[2019-04-29] MEDS: Cefdinir cap* 300 MG CAP PO SCH (21:02)
[2019-04-29] MEDS: Docusate CAP* 100 MG PO SCH (21:02)
[2019-04-29] MEDS: Febuxostat(NF) 40 MG TAB PO SCH (21:03)
[2019-04-29] MEDS: Acetaminophen TAB* 325 MG PO PRN (23:47)
--- NOTE | 2019-04-30 00:03 | HP ---
ADMISSION HISTORY AND PHYSICAL: DATE OF ADMISSION: 04/29/19 REASON FOR ADMISSION: The patient is status post a left L4-5 TLIF. HISTORY OF ILLNESS: Javon Allred is a 73-year-old man. He has had a history of about 3 years of low back pain radiating down his left leg. He had an EMG nerve conduction studies done this year showing peripheral neuropathy, possibly diabetic peripheral neuropathy. He had an MRI of his lumbar spine showing significant stenosis of his lumbar spine at L4-5 and a grade 1 spondylolisthesis. The patient saw Dr. Gallego who sent him for epidural steroid injections with Dr. Pierson. Dr. Pierson tried epidural steroid injections , but they were not successful, so he went back to Dr. Gallego. He was admitted to [facility] on 04/21/19 and underwent a minimally invasive L4-5 TLIF with laminectomy for decompression and a right iliac crest bone graft with insertion of PEEK interbody cage and pedicle screws at L4-L5. On April 22, the patient developed mental status changes, fever, hypotension , tachycardia, and met sepsis criteria. He was started on broad spectrum IV antibiotics. CXR and U/A were negative. Blood cultures were negative. He had urinary retention and a coto was placed. He defervesced and his mental status returned to baseline, antibiotics changed to oral. After the surgery, the patient had a lot of difficulty mobilizing. He developed He felt to have physical therapy and occupational therapy needs. He is now being admitted for inpatient rehab so that he might return to independent living. PAST MEDICAL HISTORY: Significant for diabetes mellitus. He had a knee arthroplasty in 2014. He has a history of gout, depression, prostatic hypertrophy, peripheral neuropathy, and sleep apnea. CURRENT MEDICATIONS: Include: 1. Lipitor. 2. Cefdinir. 3. Cymbalta. 4. Uloric. 5. Gabapentin. 6. Glucotrol. 7. Hydrochlorothiazide. 8. Insulin sliding scale. 9. Cozaar. 10. Ritalin. ALLERGIES: The patient has allergies to AMLODIPINE, LEVAQUIN, METFORMIN, METOPROLOL. SOCIAL HISTORY: He is a nonsmoker, nondrinker, lives with his in a two- story house. There were 12 steps between levels. There are 2 steps in. REVIEW OF SYSTEMS: The patient reports no current shortness of breath or chest pain. PHYSICAL EXAMINATION VITAL SIGNS: The patient's temperature is 98, blood pressure is 118/76, pulse is 86 and regular, respirations 16. HEENT: His extraocular movements are intact. Tongue is midline. NECK: Supple. LUNGS: Lung sounded clear to auscultation bilaterally. HEART: Heart sounds are regular. S1, S2 audible. ABDOMEN: Soft and nontender. EXTREMITIES: His extremities had normal tone. Some decreased sensation in his feet. NEUROLOGIC: As mentioned, sensation was diminished in the feet. Muscle strength in his lower extremities appeared to be close to 5/5. Upper extremity strength is 5/5. FUNCTIONAL EXAM: The patient transfers with min assist. ASSESSMENT: Status post left L4-5 transforaminal lumbar interbody fusion. PLAN: We are going to integrate the patient into a comprehensive and therapeutic rehab program with the following goals: 1. Physical Therapy will work with the patient. They are going to work on functional transfer training, ambulation training with a walker. 2. Occasional Therapy will see the patient, work on his activities of daily living including toileting and toilet transfers. 3. ADRIAN stockings for DVT prophylaxis. 4. Adequate analgesia. 5. His bowels will be regulated. 6. We will continue with Coto catheter, which he had prior to his surgery because of urinary retention. 7. The patient is on cefepime. We are going to discontinue this as soon as we can. 8. For his diabetes, we will do sliding scale insulin coverage with fingersticks 4 times a day. We will continue his Glucotrol. 9. He will wear his LSO when he is out of bed. 10. Estate Agent will be closely involved to make sure that any services and equipment that the patient requires are in place to prior discharge. 11. Family training as appropriate. 12. Home with appropriate services. ESTIMATED LENGTH OF STAY: 1 week. [id number]/[facility] #: [id number] EFRAIN
[2019-04-30] MEDS: Insulin LISPRO* 1 UNITS UNIT SUBCUT SCH ×4 (08:53→21:06)
[2019-04-30] MEDS: Losartan TAB* 25 MG PO SCH (09:00)
[2019-04-30] MEDS ORDERED: Influenza VAC *QUAD* 2019-20* 0.5 ML SYRINGE IM ONE (09:00)
[2019-04-30] MEDS: DULoxetine DR CAP* 60 MG CAP.DR PO SCH (09:00)
[2019-04-30] MEDS: Hydrochlorothiazide TAB* 25 MG PO SCH (09:00)
[2019-04-30] MEDS: Cefdinir cap* 300 MG CAP PO SCH ×2 (09:00→21:09)
[2019-04-30] MEDS: Tamsulosin CAP* 0.4 MG PO SCH (09:02)
[2019-04-30] MEDS: Potassium Chlor TAB* 20 MEQ TAB.ER PO SCH ×2 (09:02→21:07)
[2019-04-30] MEDS: Methylphenidate ER TAB* 18 MG PO SCH (09:03)
[2019-04-30] MEDS: Docusate CAP* 100 MG PO SCH ×2 (09:04→21:15)
[2019-04-30] MEDS: Gabapentin CAP(*) 300 MG PO SCH ×3 (09:04→21:07)
[2019-04-30] MEDS: glipiZIDE TAB* 5 MG PO SCH ×2 (09:04→16:41)
[2019-04-30] MEDS: Acetaminophen TAB* 325 MG PO PRN (09:25)
[2019-04-30] MEDS: oxyCODONE TAB* 5 MG TAB PO PRN ×2 (09:26→15:14)
--- NOTE | 2019-04-30 16:37 | PN ---
Progress Note Date of Service: 04/30/19 Note: PORTER Garcia TONYAWILTON was visited. Therapy notes read and reviewed. He worked with therapy today and thinks he had a good day. His blood sugars a little high. Will finish antibiotics tonight Current Medications: Active Medications Generic Name Dose Route Start Last Admin Trade Name Freq PRN Reason Stop Dose Admin Acetaminophen 650 mg 04/29/19 13:59 04/30/19 09:25 Tylenol Tab* PO 650 mg Q6H PRN Administration MILD PAIN or TEMP > 100.4 Atorvastatin Calcium 40 mg 04/30/19 17:00 Lipitor* PO 1700 JOÃO Bisacodyl 10 mg 04/29/19 13:59 Dulcolax Supp* [place] DAILY PRN CONSTIPATION Cefdinir 300 mg 04/29/19 21:00 04/30/19 09:00 Cefdinir Cap* PO 04/30/19 23:59 300 mg BID JOÃO Administration Dextrose 25 ml 04/29/19 14:07 Dextrose 50% Vial 50 Ml* IV PUSH .FOR FS < 60 - SS PRN FS < 60 Docusate Sodium 100 mg 04/29/19 21:00 04/30/19 09:04 Colace Cap* PO 100 mg BID JOÃO Administration Duloxetine HCl 60 mg 04/30/19 09:00 04/30/19 09:00 Cymbalta Cap* PO 60 mg DAILY JOÃO Administration Febuxostat 40 mg 04/29/19 21:00 04/29/19 21:03 Uloric(Nf) PO Not Given BEDTIME JOÃO Gabapentin 300 mg 04/29/19 21:00 04/30/19 14:50 Neurontin Cap(*) PO 300 mg TID JOÃO Administration Glipizide 10 mg 04/29/19 17:00 04/30/19 09:04 Glucotrol Tab* PO 10 mg 0800,1700 JOÃO Administration Hydrochlorothiazide 12.5 mg 04/30/19 09:00 04/30/19 09:00 Hydrodiuril Tab* PO 12.5 mg DAILY JOÃO Administration Insulin Human Lispro 0 - 12 units 04/29/19 16:30 04/30/19 08:53 Humalog* SUBCUT 4 units ACHS JOÃO Administration Protocol Losartan Potassium 50 mg 04/30/19 09:00 04/30/19 09:00 Cozaar Tab* PO 50 mg DAILY JOÃO Administration Magnesium Hydroxide 30 ml 04/29/19 13:59 Milk Of Magnesia Liq* PO Q6H PRN CONSTIPATION Methylphenidate HCl 18 mg 04/30/19 09:00 04/30/19 09:03 Concerta Er Tab* PO 18 mg DAILY JOÃO Administration Oxycodone HCl 5 mg 04/29/19 14:24 04/30/19 15:14 Roxycodone Tab* PO 5 mg Q4H PRN Administration PAIN - SEVERE Potassium Chloride 20 meq 04/29/19 21:00 04/30/19 09:02 Klor Con Er Tab* PO 20 meq BID JOÃO Administration Senna 2 tab 04/29/19 21:00 04/29/19 21:02 Senokot 8.6 Mg Tab* PO 2 tab BEDTIME JOÃO Administration Tamsulosin HCl 0.4 mg 04/30/19 09:00 04/30/19 09:02 Flomax Cap* PO 0.4 mg DAILY JOÃO Administration Vital Signs: Vital Signs Temp Pulse Resp BP Pulse Ox 98.3 F 89 16 116/81 93 04/30/19 16:07 04/30/19 16:07 04/30/19 16:07 04/30/19 16:07 04/30/19 16:07 Lab Results: Laboratory Results - last 24 hr 04/29/19 04/29/19 04/30/19 16:50 20:41 07:42 POC Glucose (mg/dL) 205 H 129 H 214 H Exam: GENERAL: No apparent distress LUNGS: Clear HEART: reg rhythm ABDOMEN: SOft, +BS EXTREMITIES: Normal tone NEUROLOGIC: Sensation diminished in feet. Motor strength 5/5 in arms, legs 4+ Assessment/Plan: 1. Left MIS L4/5 TLIF: PT/OT 2. Sepsis: No source found. All cultures negative. Finish antibiotics 3. Diabetes: Glipizide/SSI 4. Depression: Cymbalta/Methylphenidate 5. DPN: gabapentin 6. Advance Directives: Full code 7. DVT Prophylaxis: TEDs 04/30/19 16:35 04/30/19 16:36 04/30/19 16:38
[2019-04-30] MEDS: Atorvastatin* 40 MG TAB PO SCH (16:41)
[2019-04-30] MEDS: Senna TAB 8.6 mg* TAB PO SCH (21:15)
[2019-04-30] MEDS: Febuxostat(NF) 40 MG TAB PO SCH (21:16)
[2019-05-01] MEDS: oxyCODONE TAB* 5 MG TAB PO PRN ×2 (04:28→18:46)
[2019-05-01 05:13] LABS: ABS Basophils 0.1 10^3/ul (0-0.2); ABS Eosinophils 0.3 10^3/ul (0-0.6); ABS Lymphocytes 1.6 10^3/ul (1.0-4.8); ABS Monocytes 1.1 10^3/ul (0-0.8); Eosinophil % 2.7 %; Hematocrit 39 % (42-52); Hemoglobin 13.1 g/dL (14.0-18.0); Lymphocyte % 13.1 %; Mean Corpuscular HGB Conc 34 g/dL (31-36); Mean Corpuscular Hemoglobin 32 pg (27-31); Mean Corpuscular Volume 95 fL (80-94); Mean Platelet Volume 7.4 fL (7.4-10.4); Platelet Count 349 10^3/uL (150-450); Red Cell Distribution Width 13 % (10-15); White Blood Count 12.1 10^3/uL (3.5-10.8)
[2019-05-01 05:28] LABS: Albumin 3.9 g/dL (3.2-5.2); Calcium 9.8 mg/dL (8.6-10.3); Potassium 3.9 mmol/L (3.5-5.0); Total Bilirubin 0.5 mg/dL (0.2-1.0)
[2019-05-01 05:34] LABS: Albumin/Globulin Ratio 1.4 (1-3); EGFR African American 102.7 (>60); EGFR Non-African American 84.9 (>60); Globulin 2.8 g/dL (2-4); Total Protein 6.7 g/dL (6.4-8.9)
[2019-05-01] MEDS: Insulin LISPRO* 1 UNITS UNIT SUBCUT SCH ×4 (09:20→21:51)
[2019-05-01] MEDS: Methylphenidate ER TAB* 18 MG PO SCH (09:21)
[2019-05-01] MEDS: Gabapentin CAP(*) 300 MG PO SCH ×3 (09:21→20:45)
[2019-05-01] MEDS: glipiZIDE TAB* 5 MG PO SCH ×2 (09:22→18:45)
[2019-05-01] MEDS: Losartan TAB* 25 MG PO SCH (09:22)
[2019-05-01] MEDS: Docusate CAP* 100 MG PO SCH ×2 (09:22→20:45)
[2019-05-01] MEDS: Hydrochlorothiazide TAB* 25 MG PO SCH (09:24)
[2019-05-01] MEDS: DULoxetine DR CAP* 60 MG CAP.DR PO SCH (09:25)
[2019-05-01] MEDS: Potassium Chlor TAB* 20 MEQ TAB.ER PO SCH ×2 (09:25→20:46)
[2019-05-01] MEDS: Tamsulosin CAP* 0.4 MG PO SCH (09:31)
[2019-05-01] MEDS: Methocarbamol TAB* 500 MG PO PRN (12:26)
--- NOTE | 2019-05-01 12:43 | PMRUTEAM ---
PMRU: Team Meeting Current Status: Nursing: Current Status Skin Deviations [Lower Back] Incision Skin Deviation Description [ Dressings x2 cdi Lower Back] Physical Therapy: Current Status Bed Mobility Assistance Min Assist Transfer Mobility Assistance Contact Guard Assist Transfer/Bed Mobility Rolling Walker Recommended Devices Ambulation Assistance Contact Guard Assist Ambulation Assistive Devices Rolling Walker Number of Feet Patient 150, 100 Ambulated Stairs Assistance Contact Guard Assist Stairs Recommended Devices Two Rails Number of Stairs 2x3 Objective Comments step to pattern ascend/descending x3 steps with use of 2 rails Occupational Therapy: Current Status Upper Body Dressing Max Asst Lower Body Dressing Total Assist Bathing Mod Assist Toileting Max Asst Toilet Transfer Min Assist Eating Independent Rec Therapy: Current Status Summary of Assessment and Pt. was open to conversation - appropriate and Clinical Impression cooperative throughtout. Pt.'s was present during our interaction. Pt. states his life has been "upside down" recently and it has impacted his leisure life as well. Pt. was open to continued leisure visits but declined pet therapy d/t recently losing a pet. Treatment Goals Pt. will engage in leisure activities while on the unit. Treatment Plan Provide recreation therapy and encourage involvement. Goals: Physical Therapy: Initial Goals Bed Mobility Assistance Independent Transfer Mobility Assistance Independent Transfer/Bed Mobility Rolling Walker Recommended Devices Ambulation Independent Ambulation Recommended Devices Rolling Walker Ambulation Distance 150 Stairs Assistance Supervision Stair Recommended Devices Straight Cane,One Rail Number of Stairs 12 Home Exercise Program Independent Assistance Physical Therapy: Updated Goals Transfer/Bed Mobility Rolling Walker Recommended Devices Occupational Therapy: Initial Goals Goals to be Completed in (Days 3-5 days ) Upper Body Bathing Routine Minimal Contact Assist Lower Body Bathing Routine Minimal Contact Assist Upper Body Dressing Routine Minimal Contact Assist Lower Body Dressing Routine Minimal Contact Assist Toilet Hygeine and Clothing Supervision/Set Up Management Routine Toilet Transfer Routine Supervision/Set Up Step-In Shower Transfer Supervision/Set Up Routine Functional Transfers for ADL Supervision/Set Up Grooming Routine Independent Feeding Routine Modified Independent with Care Plan: Care Plan ADL's - Improve/Maintain Start: 04/30/19 08:19 Freq: DAILY@[id number],1900 Status: Active Target: 05/01/19 Protocol: Activity Type Activity Date Activity User E-Sign Co-Sign Detail Recorded Client Recorded Date Recorded By Document 04/30/19 08:21 [id number] [email or web address] 04/30/19 08:21 [id number] 04/30/19 08:21 PMRU Outcome: ADL's/ADL Transfers Orders/Interventions Occupational Therapy Evaluation & Treatment Device Yes Address Deficits Secondary To: L L4-L5 MIS TLIF with PEEK intervody cage Patient to receive OT 5x/wk for 60-120 Therex min/day Self Care Management Group Therapy UE/LE ADL's with Assist Yes: Heather ADL Transfers with Assist Yes: Supervision Toileting: Transfers,Clothing Management Yes: ,Hygeine w/Assist Supervision Light Kitchen/Laundry w/Assist Yes Other Outcome/Goals Pt laying sidelying in bed upon writers arrival . Noted: pt soiled with stool, on his sheetes, up his back and in his brief. Pt ambulates into the BR with verbal directional cues 2* unsure how to get to BR. When assembly instructions writer asked if pt knew he has to have a BM, he states he thought it was just gas. Pt then stated he knew he had a BM after. Unclear why pt did not ask for assistance to the BR once he realized he had a BM. Pt requires increased assistance this date anticipated 2* increased confusion. Progression Toward Outcome/Goals Goal Initiation Coping/Psych-Improve/Maintain Start: 04/29/19 16:53 Freq: [id number] Status: Active Target: 05/06/19 Protocol: Activity Type Activity Date Activity User E-Sign Co-Sign Detail Recorded Client Recorded Date Recorded By Document 05/01/19 07:00 [id number] 05/01/19 07:04 [id number] 05/01/19 07:00 PMRU Outcome: Coping/Psychosocial Current Coping Outcome/Goals Verbalization of Acceptance of Rehab Admit Verbalization of Sense of Control Over Health Status Utilization of Appropriate Problem Solving Techniques Willingness to Participate in Treatment Plan and Basic Needs Progression Toward Outcome/Goals Progressing Current Psychosocial Outcome/Goals Maintain/ Improve Emotional Health Demonstrates Knowledge of Healthy Coping Mechanisms Available Cooperate/ Participate in Plan Progression Toward Outcome/Goals Progressing DVT Prophylaxis- Improve/Maintain Start: 04/29/19 16:53 Freq: DAILY@0700,1900 Status: Active Target: 05/06/19 Protocol: Activity Type Activity Date Activity User E-Sign Co-Sign Detail Recorded Client Recorded Date Recorded By Document 05/01/19 07:00 [id number] 05/01/19 07:04 [id number] 05/01/19 07:00 PMRU Outcome: DVT Prophylaxis Current DVT Outcome/Goals Remains Free of DVT Free of complications from current DVT Demonstrates Knowledge of DVT Prevention/ Treatment TEDS Stockings on Every AM, Off at HS Progression Toward Outcome/Goals Progressing Discharge Planning - Improve/Maintain Start: 04/29/19 16:53 Freq: DAILY@0700,1900 Status: Active Target: 05/06/19 Protocol: Activity Type Activity Date Activity User E-Sign Co-Sign Detail Recorded Client Recorded Date Recorded By Document 05/01/19 07:00 [id number] 05/01/19 07:04 [id number] 05/01/19 07:00 PMRU Outcome: Discharge Planning Update Patient Family Yes Current Discharge Planning Outcome/Goals Demonstrates Understanding of Discharge Plan Progression Toward Outcome/Goals Progressing Education-Improve/Maintain Start: 04/29/19 16:53 Freq: DAILY@0700,1900 Status: Active Target: 05/06/19 Protocol: Activity Type Activity Date Activity User E-Sign Co-Sign Detail Recorded Client Recorded Date Recorded By Document 05/01/19 07:00 [id number] [id number] 05/01/19 07:04 [id number] 05/01/19 07:00 PMRU Outcome: Education Current Education Outcome/Goals Demonstrate/ Verbalize Understanding of Written Discharge Instructions Demonstrates Skills Encourage Questions Progression Toward Outcome/Goals Progressing /GI-Improve/Maintain Start: 04/29/19 16:53 Freq: DAILY@0700,1900 Status: Active Target: 05/06/19 Protocol: Activity Type Activity Date Activity User E-Sign Co-Sign Detail Recorded Client Recorded Date Recorded By Document 05/01/19 07:00 [id number] 05/01/19 07:04 [id number] 05/01/19 07:00 PMRU Outcome: Genitourinary/ Gastrointestinal Current Gastrointestinal Outcome/Goals Maintain/ Achieve Bowel Regularity in Accordance with Pt's Baseline Remain Free of Emesis Prevent Constipation Bowel Regularity at Home Laxatives as Ordered Progression Toward Outcome/Goals Progressing Current Genitourinary Outcome/Goals Maintain/ Achieve Urinary Continence Maintain/ Achieve Adequate Urinary Output Remain Free of Hospital- Acquired UTI Other Genitourinary Outcome/Goals Turner at present Progression Toward Outcome/Goals Progressing Medication Administration Start: 04/29/19 16:53 Freq: DAILY@ Status: Active Target: 05/06/19 Protocol: Activity Type Activity Date Activity User E-Sign Co-Sign Detail Recorded Client Recorded Date Recorded By Document 05/01/19 07:00 [id number] 05/01/19 07:04 [id number] 05/01/19 07:00 PMRU Outcome: Medication Administration Assess Patient Knowledge/Teach Med Yes Education for all Meds 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 No Metabolic Status- Improve/Maintain Start: 04/29/19 16:53 Freq: DAILY@[id number] Status: Active Target: 05/06/19 Protocol: Activity Type Activity Date Activity User E-Sign Co-Sign Detail Recorded Client Recorded Date Recorded By Document 05/01/19 07:00 [id number] 05/01/19 07:04 05/01/19 07:00 PMRU Outcome: Metabolic Status Have Fingersticks Been Ordered Yes Fingerstick Order Frequency AC & HS Current Metabolic Status Outcome/Goals Maintain/ Improve Metabolic Status Demonstrate Knowledge of Prevention/ Treatment of Metabolic Imbalances Progression Toward Outcome/Goals Progressing Mobility- Improve/Maintain Start: 04/29/19 17:07 Freq: DAILY@ Status: Active Target: 04/30/19 Protocol: Activity Type Activity Date Activity User E-Sign Co-Sign Detail Recorded Client Recorded Date Recorded By Document 04/30/19 16:31 [id number] [email or web address] 04/30/19 16:32 [id number] 04/30/19 16:31 PMRU Outcome: Mobility Physical Therapy Evaluation and Yes Treatment Activity OOB with Assistance Yes WBAT Yes Device Yes Assistance Yes Patient to be seen 5x/wk for 60-120 min/ Therex day for: Mobility Training Gait Training W/C Mobility Balance Current Mobility Outcome/Goals Improve Mobility Status Demonstrates Proper Use of Assistive Devices Progression Toward Outcome/Goals Progressing Outcome/Goals Met Improve Mobility Status Bed Mobility Yes: I Transfers Yes: I with RW Gait x ft Yes: 150' I with RW W/C Mobility x ft No Up/Down Stairs Yes: 12 with 1 rail + SPC, S With HEP Yes: I Pain/Comfort- Improve/Maintain Start: 04/29/19 16:53 Freq: DAILY@[id number] Status: Active Target: 05/06/19 Protocol: Activity Type Activity Date Activity User E-Sign Co-Sign Detail Recorded Client Recorded Date Recorded By Document 05/01/19 07:00 [id number] 05/01/19 07:04 [id number] 05/01/19 07:00 PMRU Outcome: Pain/Comfort Current Pain/Comfort Outcome/Goals Demonstrates Knowledge and Use of Available Comfort Measures Achieves Acceptable Comfort/Pain Level as Determined by Patient/Condit Maintain Comfort Level Allowing Patient to Fully Participate in Rehab Progression Toward Outcome/Goals Progressing Rec Therapy- Improve/Maintain Start: 04/29/19 16:28 Freq: DAILY@ Status: Active Target: 04/30/19 Protocol: Activity Type Activity Date Activity User E-Sign Co-Sign Detail Recorded Client Recorded Date Recorded By Document 04/29/19 16:28 [id number] [email or web address] 04/29/19 16:28 [id number] 04/29/19 16:28 PMRU Outcome: Recreation Therapy Current Rec Ther Outcome/Goals Complete Rec Therapy Assessment Meet with Patient Regularly for Support Encourage Leisure Involvement Progression Toward Outcome/Goals Goal Initiation Safety- Improve/Maintain Start: 04/29/19 16:05 Freq: DAILY@ Status: Active Target: 05/06/19 Protocol: Activity Type Activity Date Activity User E-Sign Co-Sign Detail Recorded Client Recorded Date Recorded By Document 05/01/19 07:00 [id number] 05/01/19 07:04 [id number] 05/01/19 07:00 PMRU Outcome: Safety Current Safety Outcome/Goals Remain Free of Injury or Harm Cooperates with Safety Measures for Least Restrictive Environment Prevent Falls/ Injury Progression Toward Outcome/Goals Progressing Skin- Improve/Maintain Start: 04/29/19 16:53 Freq: DAILY@ Status: Active Target: 05/06/19 Protocol: Activity Type Activity Date Activity User E-Sign Co-Sign Detail Recorded Client Recorded Date Recorded By Document 05/01/19 07:00 [id number] 05/01/19 07:04 [id number] 05/01/19 07:00 PMRU Outcome: Skin Skin Risk Level Mild Risk Skin Orders Turn/Position q2hr While in Bed Current Skin Outcome/Goals Maintain/ Improve Skin Integrity Free from Pressure Injury Surgical Incisions Healing Progression Toward Outcome/Goals Progressing Medicine Note: Length of Stay: 1 week Anticipated Discharge Destination: Tentative Discharge Date: 05/08/19 Discharged to: Home
--- NOTE | 2019-05-01 17:06 | PN ---
Progress Note Date of Service: 05/01/19 Note: PORTER BAIRDCATHERINEWILTON was visited. Therapy notes read and reviewed. He was discussed in interdisciplinary plan of care rounds. Note he is not at his baseline cognitively. Having a lot of back spasms Current Medications: Active Medications Generic Name Dose Route Start Last Admin Trade Name Freq PRN Reason Stop Dose Admin Acetaminophen 650 mg 04/29/19 13:59 04/30/19 09:25 Tylenol Tab* PO 650 mg Q6H PRN Administration MILD PAIN or TEMP > 100.4 Atorvastatin Calcium 40 mg 04/30/19 17:00 04/30/19 16:41 Lipitor* PO 40 mg 1700 JOÃO Administration Bisacodyl 10 mg 04/29/19 13:59 Dulcolax Supp* [place] DAILY PRN CONSTIPATION Dextrose 25 ml 04/29/19 14:07 Dextrose 50% Vial 50 Ml* IV PUSH .FOR FS < 60 - SS PRN FS < 60 Docusate Sodium 100 mg 04/29/19 21:00 05/01/19 09:22 Colace Cap* PO 100 mg BID JOÃO Administration Duloxetine HCl 60 mg 04/30/19 09:00 05/01/19 09:25 Cymbalta Cap* PO 60 mg DAILY JOÃO Administration Febuxostat 40 mg 05/01/19 21:00 Uloric(Nf) PO BEDTIME JOÃO Gabapentin 300 mg 04/29/19 21:00 05/01/19 09:21 Neurontin Cap(*) PO 300 mg TID JOÃO Administration Glipizide 10 mg 04/29/19 17:00 05/01/19 09:22 Glucotrol Tab* PO 10 mg 0800,1700 JOÃO Administration Hydrochlorothiazide 12.5 mg 04/30/19 09:00 05/01/19 09:24 Hydrodiuril Tab* PO 12.5 mg DAILY JOÃO Administration Insulin Human Lispro 0 - 12 units 04/29/19 16:30 05/01/19 12:36 Humalog* SUBCUT 2 units ACHS JOÃO Administration Protocol Losartan Potassium 50 mg 04/30/19 09:00 05/01/19 09:22 Cozaar Tab* PO 50 mg DAILY JOÃO Administration Magnesium Hydroxide 30 ml 04/29/19 13:59 Milk Of Magnesia Liq* PO Q6H PRN CONSTIPATION Methocarbamol 1,000 mg 05/01/19 10:57 05/01/19 12:26 Robaxin Tab* PO 1,000 mg Q6H PRN Administration SPASMS Methylphenidate HCl 18 mg 04/30/19 09:00 05/01/19 09:21 Concerta Er Tab* PO 18 mg DAILY JOÃO Administration Oxycodone HCl 5 mg 04/29/19 14:24 05/01/19 04:28 Roxycodone Tab* PO 5 mg Q4H PRN Administration PAIN - SEVERE Potassium Chloride 20 meq 04/29/19 21:00 05/01/19 09:25 Klor Con Er Tab* PO 20 meq BID JOÃO Administration Senna 2 tab 04/29/19 21:00 04/30/19 21:15 Senokot 8.6 Mg Tab* PO Not Given BEDTIME JOÃO Tamsulosin HCl 0.4 mg 04/30/19 09:00 05/01/19 09:31 Flomax Cap* PO 0.4 mg DAILY JOÃO Administration Vital Signs: Vital Signs Temp Pulse Resp BP Pulse Ox 97.6 F 85 16 161/83 92 05/01/19 05:00 05/01/19 05:00 05/01/19 12:26 05/01/19 05:00 05/01/19 08:45 Lab Results: Laboratory Results - last 24 hr 04/30/19 04/30/19 05/01/19 16:42 20:53 04:53 WBC 12.1 H RBC 4.10 L Hgb 13.1 L Hct 39 L MCV 95 H MCH 32 H MCHC 34 RDW 13 Plt Count 349 MPV 7.4 Neut % (Auto) 74.1 Lymph % (Auto) 13.1 [place] % (Auto) 9.3 Eos % (Auto) 2.7 Baso % (Auto) 0.8 Absolute Neuts (auto) 9.0 H Absolute Lymphs (auto) 1.6 Absolute Monos (auto) 1.1 H Absolute Eos (auto) 0.3 Absolute Basos (auto) 0.1 Absolute Nucleated RBC 0.0 Nucleated RBC % 0.0 Sodium Potassium Chloride Carbon Dioxide Anion Gap BUN Creatinine Est GFR ( Amer) Est GFR (Non-Af Amer) BUN/Creatinine Ratio Glucose POC Glucose (mg/dL) 174 H 134 H Calcium Total Bilirubin AST ALT Alkaline Phosphatase Total Protein Albumin Globulin Albumin/Globulin Ratio 09/20/19 04:53 WBC RBC Hgb Hct MCV MCH MCHC RDW Plt Count MPV Neut % (Auto) Lymph % (Auto) [place] % (Auto) Eos % (Auto) Baso % (Auto) Absolute Neuts (auto) Absolute Lymphs (auto) Absolute Monos (auto) Absolute Eos (auto) Absolute Basos (auto) Absolute Nucleated RBC Nucleated RBC % Sodium 135 Potassium 3.9 Chloride 101 Carbon Dioxide 26 Anion Gap 8 BUN 15 Creatinine 0.88 Est GFR ( Amer) 102.7 Est GFR (Non-Af Amer) 84.9 BUN/Creatinine Ratio 17.0 Glucose 181 H POC Glucose (mg/dL) Calcium 9.8 Total Bilirubin 0.50 AST 53 H ALT 66 H Alkaline Phosphatase 58 Total Protein 6.7 Albumin 3.9 Globulin 2.8 Albumin/Globulin Ratio 1.4 Exam: GENERAL: No apparent distress LUNGS: Clear HEART: reg rhythm ABDOMEN: SOft, +BS EXTREMITIES: Normal tone NEUROLOGIC: Sensation diminished in feet. Motor strength 5/5 in arms, legs 4+ Assessment/Plan: 1. Left MIS L4/5 TLIF: PT/OT 2. Sepsis: No source found. All cultures negative. Finished antibiotics. WBC elevated today but no fever 3. Diabetes: Glipizide/SSI 4. Depression: Cymbalta/Methylphenidate 5. DPN: gabapentin 6. Advance Directives: Full code 7. DVT Prophylaxis: TEDs 8. Back Spasms: Methocarbamol 05/01/19 17:06 05/01/19 17:07
[2019-05-01] MEDS: Atorvastatin* 40 MG TAB PO SCH (18:45)
[2019-05-01] MEDS: Senna TAB 8.6 mg* TAB PO SCH (20:42)
[2019-05-01] MEDS: FEBUXOSTAT 40 MG PO SCH (20:45)
[2019-05-02] MEDS: Methocarbamol TAB* 500 MG PO PRN ×3 (09:12→21:37)
[2019-05-02] MEDS: Insulin LISPRO* 1 UNITS UNIT SUBCUT SCH ×4 (09:18→21:22)
[2019-05-02] MEDS: oxyCODONE TAB* 5 MG TAB PO PRN ×3 (09:20→23:14)
--- NOTE | 2019-05-02 10:15 | PN ---
Progress Note Date of Service: 05/02/19 Note: PORTER Radha DAVILA was visited. Therapy notes read and reviewed. Current Medications: Active Medications Generic Name Dose Route Start Last Admin Trade Name Freq PRN Reason Stop Dose Admin Acetaminophen 650 mg 04/29/19 13:59 04/30/19 09:25 Tylenol Tab* PO 650 mg Q6H PRN Administration MILD PAIN or TEMP > 100.4 Atorvastatin Calcium 40 mg 04/30/19 17:00 05/01/19 18:45 Lipitor* PO 40 mg 1700 JOÃO Administration Bisacodyl 10 mg 04/29/19 13:59 Dulcolax Supp* [place] DAILY PRN CONSTIPATION Dextrose 25 ml 04/29/19 14:07 Dextrose 50% Vial 50 Ml* IV PUSH .FOR FS < 60 - SS PRN FS < 60 Docusate Sodium 100 mg 04/29/19 21:00 05/01/19 20:45 Colace Cap* PO Not Given BID JOÃO Duloxetine HCl 60 mg 04/30/19 09:00 05/01/19 09:25 Cymbalta Cap* PO 60 mg DAILY JOÃO Administration Febuxostat 40 mg 05/01/19 21:00 05/01/19 20:45 Uloric(Nf) PO 40 mg BEDTIME JOÃO Administration Gabapentin 300 mg 04/29/19 21:00 05/01/19 20:45 Neurontin Cap(*) PO 300 mg TID JOÃO Administration Glipizide 10 mg 04/29/19 17:00 05/01/19 18:45 Glucotrol Tab* PO 10 mg 0800,1700 JOÃO Administration Hydrochlorothiazide 12.5 mg 04/30/19 09:00 05/01/19 09:24 Hydrodiuril Tab* PO 12.5 mg DAILY JOÃO Administration Insulin Human Lispro 0 - 12 units 04/29/19 16:30 05/02/19 09:18 Humalog* SUBCUT 4 units ACHS JOÃO Administration Protocol Losartan Potassium 50 mg 04/30/19 09:00 05/01/19 09:22 Cozaar Tab* PO 50 mg DAILY JOÃO Administration Magnesium Hydroxide 30 ml 04/29/19 13:59 Milk Of Magnesia Liq* PO Q6H PRN CONSTIPATION Methocarbamol 1,000 mg 05/01/19 10:57 05/02/19 09:12 Robaxin Tab* PO 1,000 mg Q6H PRN Administration SPASMS Methylphenidate HCl 18 mg 04/30/19 09:00 05/01/19 09:21 Concerta Er Tab* PO 18 mg DAILY JOÃO Administration Oxycodone HCl 5 mg 04/29/19 14:24 05/02/19 09:20 Roxycodone Tab* PO 5 mg Q4H PRN Administration PAIN - SEVERE Potassium Chloride 20 meq 04/29/19 21:00 05/01/19 20:46 Klor Con Er Tab* PO 20 meq BID OJÃO Administration Senna 2 tab 04/29/19 21:00 05/01/19 20:42 Senokot 8.6 Mg Tab* PO Not Given BEDTIME JOÃO Tamsulosin HCl 0.4 mg 04/30/19 09:00 05/01/19 09:31 Flomax Cap* PO 0.4 mg DAILY JOÃO Administration Vital Signs: Vital Signs Temp Pulse Resp BP Pulse Ox 98.0 F 81 12 162/84 93 05/02/19 05:14 05/02/19 05:14 05/02/19 09:20 05/02/19 05:14 05/02/19 05:14 Lab Results: Laboratory Results - last 24 hr 05/01/19 05/01/19 05/01/19 08:08 12:29 17:00 POC Glucose (mg/dL) 196 H 201 H 194 H 05/01/19 05/02/19 21:46 08:20 POC Glucose (mg/dL) 222 H 213 H Exam: GENERAL: No apparent distress LUNGS: Clear HEART: reg rhythm ABDOMEN: SOft, +BS EXTREMITIES: Normal tone NEUROLOGIC: Sensation diminished in feet. Motor strength 5/5 in arms, legs 4+ Assessment/Plan: 1. Left MIS L4/5 TLIF: PT/OT 2. Sepsis: No source found. All cultures negative. Finished antibiotics. WBC elevated 05/01 but no fever, will recheck 05/04 3. Diabetes: Glipizide/SSI 4. Depression: Cymbalta/Methylphenidate 5. DPN: gabapentin 6. Advance Directives: Full code 7. DVT Prophylaxis: TEDs 8. Back Spasms: Methocarbamol 05/02/19 10:15
[2019-05-02] MEDS: Docusate CAP* 100 MG PO SCH ×2 (12:36→21:21)
[2019-05-02] MEDS: glipiZIDE TAB* 5 MG PO SCH ×2 (12:36→17:48)
[2019-05-02] MEDS: Gabapentin CAP(*) 300 MG PO SCH ×3 (12:37→21:19)
[2019-05-02] MEDS: Methylphenidate ER TAB* 18 MG PO SCH (12:39)
[2019-05-02] MEDS: Potassium Chlor TAB* 20 MEQ TAB.ER PO SCH ×2 (12:39→21:22)
[2019-05-02] MEDS: Tamsulosin CAP* 0.4 MG PO SCH (12:39)
[2019-05-02] MEDS: Losartan TAB* 25 MG PO SCH (12:40)
[2019-05-02] MEDS: Hydrochlorothiazide TAB* 25 MG PO SCH (12:57)
[2019-05-02] MEDS: DULoxetine DR CAP* 60 MG CAP.DR PO SCH (12:58)
[2019-05-02] MEDS: Acetaminophen TAB* 325 MG PO PRN ×2 (14:16→21:29)
[2019-05-02] MEDS: Atorvastatin* 40 MG TAB PO SCH (17:33)
[2019-05-02] MEDS: FEBUXOSTAT 40 MG PO SCH (21:18)
[2019-05-02] MEDS: Senna TAB 8.6 mg* TAB PO SCH (21:21)
[2019-05-03] MEDS: Losartan TAB* 25 MG PO SCH (08:56)
[2019-05-03] MEDS: Methylphenidate ER TAB* 18 MG PO SCH (08:56)
[2019-05-03] MEDS: DULoxetine DR CAP* 60 MG CAP.DR PO SCH (08:56)
[2019-05-03] MEDS: glipiZIDE TAB* 5 MG PO SCH ×2 (08:57→18:04)
[2019-05-03] MEDS: Hydrochlorothiazide TAB* 25 MG PO SCH (08:58)
[2019-05-03] MEDS: Tamsulosin CAP* 0.4 MG PO SCH (08:58)
[2019-05-03] MEDS: Gabapentin CAP(*) 300 MG PO SCH ×3 (08:59→22:07)
[2019-05-03] MEDS: Potassium Chlor TAB* 20 MEQ TAB.ER PO SCH ×2 (08:59→22:08)
[2019-05-03] MEDS: Insulin LISPRO* 1 UNITS UNIT SUBCUT SCH ×4 (09:01→22:08)
[2019-05-03] MEDS: Docusate CAP* 100 MG PO SCH ×2 (09:02→22:11)
[2019-05-03] MEDS: Acetaminophen TAB* 325 MG PO PRN (12:25)
[2019-05-03] MEDS: oxyCODONE TAB* 5 MG TAB PO PRN ×2 (12:27→18:16)
[2019-05-03] MEDS: Atorvastatin* 40 MG TAB PO SCH (18:05)
--- NOTE | 2019-05-03 18:21 | PN ---
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 Nursing notes read and reviewed. His and I had a conversation about his mind-it does seem he is clearing. She would like to limit his opioid use Current Medications: Active Medications Generic Name Dose Route Start Last Admin Trade Name Freq PRN Reason Stop Dose Admin Acetaminophen 650 mg 04/29/19 13:59 05/03/19 12:25 Tylenol Tab* PO 650 mg Q6H PRN Administration MILD PAIN or TEMP > 100.4 Atorvastatin Calcium 40 mg 04/30/19 17:00 05/03/19 18:05 Lipitor* PO 40 mg 1700 JOÃO Administration Bisacodyl 10 mg 04/29/19 13:59 Dulcolax Supp* [place] DAILY PRN CONSTIPATION Dextrose 25 ml 04/29/19 14:07 Dextrose 50% Vial 50 Ml* IV PUSH .FOR FS < 60 - SS PRN FS < 60 Docusate Sodium 100 mg 04/29/19 21:00 05/03/19 09:02 Colace Cap* PO Not Given BID JOÃO Duloxetine HCl 60 mg 04/30/19 09:00 05/03/19 08:56 Cymbalta Cap* PO 60 mg DAILY JOÃO Administration Febuxostat 40 mg 05/01/19 21:00 05/02/19 21:18 Uloric(Nf) PO 40 mg BEDTIME JOÃO Administration Gabapentin 300 mg 04/29/19 21:00 05/03/19 14:01 Neurontin Cap(*) PO 300 mg TID JOÃO Administration Glipizide 10 mg 04/29/19 17:00 05/03/19 18:04 Glucotrol Tab* PO 10 mg 0800,1700 JOÃO Administration Hydrochlorothiazide 12.5 mg 04/30/19 09:00 05/03/19 08:58 Hydrodiuril Tab* PO 12.5 mg DAILY JOÃO Administration Insulin Human Lispro 0 - 12 units 04/29/19 16:30 05/03/19 18:05 Humalog* SUBCUT 2 units ACHS JOÃO Administration Protocol Losartan Potassium 50 mg 04/30/19 09:00 05/03/19 08:56 Cozaar Tab* PO 50 mg DAILY JOÃO Administration Magnesium Hydroxide 30 ml 04/29/19 13:59 Milk Of Magnesia Liq* PO Q6H PRN CONSTIPATION Methocarbamol 1,000 mg 05/01/19 10:57 05/02/19 21:37 Robaxin Tab* PO 500 mg Q6H PRN Administration SPASMS Methylphenidate HCl 18 mg 04/30/19 09:00 05/03/19 08:56 Concerta Er Tab* PO 18 mg DAILY JOÃO Administration Oxycodone HCl 5 mg 04/29/19 14:24 05/03/19 18:16 Roxycodone Tab* PO 5 mg Q4H PRN Administration PAIN - SEVERE Potassium Chloride 20 meq 04/29/19 21:00 05/03/19 08:59 Klor Con Er Tab* PO 20 meq BID JOÃO Administration Senna 2 tab 04/29/19 21:00 05/02/19 21:21 Senokot 8.6 Mg Tab* PO Not Given BEDTIME JOÃO Tamsulosin HCl 0.4 mg 04/30/19 09:00 05/03/19 08:58 Flomax Cap* PO 0.4 mg DAILY JOÃO Administration Vital Signs: Vital Signs Temp Pulse Resp BP Pulse Ox 97.7 F 89 20 168/89 99 05/03/19 05:04 05/03/19 05:04 05/03/19 18:16 05/03/19 05:04 05/03/19 05:04 Lab Results: Laboratory Results - last 24 hr 05/02/19 05/02/19 05/03/19 17:13 21:06 07:54 POC Glucose (mg/dL) 252 H 176 H 93 05/03/19 05/03/19 08:00 11:55 POC Glucose (mg/dL) 228 H 164 H Exam: GENERAL: No apparent distress LUNGS: Clear HEART: reg rhythm ABDOMEN: SOft, +BS EXTREMITIES: Normal tone NEUROLOGIC: Sensation diminished in feet. Motor strength 5/5 in arms, legs 4+ Assessment/Plan: 1. Left MIS L4/5 TLIF: PT/OT 2. Sepsis: No source found. All cultures negative. Finished antibiotics. WBC elevated 05/01 but no fever, will recheck in am 3. Diabetes: Glipizide/SSI 4. Depression: Cymbalta/Methylphenidate 5. DPN: gabapentin 6. Advance Directives: Full code 7. DVT Prophylaxis: TEDs 8. Back Spasms: Methocarbamol 05/03/19 18:22
[2019-05-03] MEDS: FEBUXOSTAT 40 MG PO SCH (22:08)
[2019-05-03] MEDS: Senna TAB 8.6 mg* TAB PO SCH (22:11)
[2019-05-04] MEDS: Potassium Chlor TAB* 20 MEQ TAB.ER PO SCH ×2 (08:16→20:54)
[2019-05-04] MEDS: Insulin LISPRO* 1 UNITS UNIT SUBCUT SCH ×4 (08:16→21:00)
[2019-05-04] MEDS: Docusate CAP* 100 MG PO SCH ×2 (08:16→21:01)
[2019-05-04] MEDS: Losartan TAB* 25 MG PO SCH (08:16)
[2019-05-04] MEDS: Gabapentin CAP(*) 300 MG PO SCH ×3 (08:17→20:54)
[2019-05-04] MEDS: Tamsulosin CAP* 0.4 MG PO SCH (08:17)
[2019-05-04] MEDS: DULoxetine DR CAP* 60 MG CAP.DR PO SCH (08:17)
[2019-05-04] MEDS: Methylphenidate ER TAB* 18 MG PO SCH (08:17)
[2019-05-04] MEDS: glipiZIDE TAB* 5 MG PO SCH ×2 (08:17→16:34)
[2019-05-04] MEDS: Hydrochlorothiazide TAB* 25 MG PO SCH (08:19)
[2019-05-04] MEDS: Acetaminophen TAB* 325 MG PO PRN (15:18)
--- NOTE | 2019-05-04 16:31 | PN ---
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 Therapy notes read and reviewed. He seemed to have a better day today with ambulating and transferring. I spoke to urology about coto; will try to d/c in am Current Medications: Active Medications Generic Name Dose Route Start Last Admin Trade Name Freq PRN Reason Stop Dose Admin Acetaminophen 650 mg 04/29/19 13:59 05/04/19 15:18 Tylenol Tab* PO 650 mg Q6H PRN Administration MILD PAIN or TEMP > 100.4 Atorvastatin Calcium 40 mg 04/30/19 17:00 05/03/19 18:05 Lipitor* PO 40 mg 1700 JOÃO Administration Bisacodyl 10 mg 04/29/19 13:59 Dulcolax Supp* [place] DAILY PRN CONSTIPATION Dextrose 25 ml 04/29/19 14:07 Dextrose 50% Vial 50 Ml* IV PUSH .FOR FS < 60 - SS PRN FS < 60 Docusate Sodium 100 mg 04/29/19 21:00 05/04/19 08:16 Colace Cap* PO 100 mg BID JOÃO Administration Duloxetine HCl 60 mg 04/30/19 09:00 05/04/19 08:17 Cymbalta Cap* PO 60 mg DAILY JOÃO Administration Febuxostat 40 mg 05/01/19 21:00 05/03/19 22:08 Uloric(Nf) PO 40 mg BEDTIME JOÃO Administration Gabapentin 300 mg 04/29/19 21:00 05/04/19 14:08 Neurontin Cap(*) PO 300 mg TID JOÃO Administration Glipizide 10 mg 04/29/19 17:00 05/04/19 08:17 Glucotrol Tab* PO 10 mg 0800,1700 JOÃO Administration Hydrochlorothiazide 12.5 mg 04/30/19 09:00 05/04/19 08:19 Hydrodiuril Tab* PO 12.5 mg DAILY JOÃO Administration Insulin Human Lispro 0 - 12 units 04/29/19 16:30 05/04/19 12:12 Humalog* SUBCUT 2 units ACHS JOÃO Administration Protocol Losartan Potassium 50 mg 04/30/19 09:00 05/04/19 08:16 Cozaar Tab* PO 50 mg DAILY JOÃO Administration Magnesium Hydroxide 30 ml 04/29/19 13:59 Milk Of Magnesia Liq* PO Q6H PRN CONSTIPATION Methocarbamol 1,000 mg 05/01/19 10:57 05/02/19 21:37 Robaxin Tab* PO 500 mg Q6H PRN Administration SPASMS Methylphenidate HCl 18 mg 04/30/19 09:00 05/04/19 08:17 Concerta Er Tab* PO 18 mg DAILY JOÃO Administration Oxycodone HCl 5 mg 04/29/19 14:24 05/03/19 18:16 Roxycodone Tab* PO 5 mg Q4H PRN Administration PAIN - SEVERE Potassium Chloride 20 meq 04/29/19 21:00 05/04/19 08:16 Klor Con Er Tab* PO 20 meq BID JOÃO Administration Senna 2 tab 04/29/19 21:00 05/03/19 22:11 Senokot 8.6 Mg Tab* PO Not Given BEDTIME JOÃO Tamsulosin HCl 0.4 mg 04/30/19 09:00 05/04/19 08:17 Flomax Cap* PO 0.4 mg DAILY JOÃO Administration Vital Signs: Vital Signs Temp Pulse Resp BP Pulse Ox 98.2 F 92 16 144/78 95 05/04/19 16:20 05/04/19 16:20 05/04/19 16:20 05/04/19 16:20 05/04/19 16:20 Lab Results: Laboratory Results - last 24 hr 05/03/19 05/03/19 17:19 21:29 POC Glucose (mg/dL) 183 H 208 H Exam: GENERAL: No apparent distress LUNGS: Clear HEART: reg rhythm ABDOMEN: SOft, +BS EXTREMITIES: Normal tone NEUROLOGIC: Sensation diminished in feet. Motor strength 5/5 in arms, legs 4+ Assessment/Plan: 1. Left MIS L4/5 TLIF: PT/OT 2. Sepsis: No source found. All cultures negative. Finished antibiotics. WBC elevated 05/01 but no fever, will recheck in am 3. Diabetes: Glipizide/SSI 4. Depression: Cymbalta/Methylphenidate 5. DPN: gabapentin 6. Advance Directives: Full code 7. DVT Prophylaxis: TEDs 8. Back Spasms: Methocarbamol 9. Urine Retention: Has coto; will try to d/c coto in am 05/04/19 17:03 05/04/19 17:03
[2019-05-04] MEDS: Atorvastatin* 40 MG TAB PO SCH (16:34)
[2019-05-04] MEDS: oxyCODONE TAB* 5 MG TAB PO PRN (16:45)
[2019-05-04] MEDS: FEBUXOSTAT 40 MG PO SCH (21:01)
[2019-05-04] MEDS: Senna TAB 8.6 mg* TAB PO SCH (21:01)
[2019-05-04] MEDS: Hydrocortisone 1% CREAM* 30 GM TUBE TOPICAL PRN (21:01)
[2019-05-05 05:03] LABS: ABS Basophils 0.1 10^3/ul (0-0.2); ABS Eosinophils 0.2 10^3/ul (0-0.6); ABS Lymphocytes 1.4 10^3/ul (1.0-4.8); ABS Monocytes 1.5 10^3/ul (0-0.8); ABS Neutrophils 16.4 10^3/ul (1.5-7.7); Eosinophil % 1.1 %; Hematocrit 41 % (42-52); Hemoglobin 13.8 g/dL (14.0-18.0); Lymphocyte % 7.2 %; Mean Corpuscular HGB Conc 34 g/dL (31-36); Mean Corpuscular Hemoglobin 32 pg (27-31); Mean Corpuscular Volume 94 fL (80-94); Mean Platelet Volume 7.9 fL (7.4-10.4); Platelet Count 377 10^3/uL (150-450); Red Blood Count 4.36 10^6 /uL (4.18-5.48); Red Cell Distribution Width 13 % (10-15); White Blood Count 19.6 10^3/uL (3.5-10.8)
[2019-05-05] MEDS: Methylphenidate ER TAB* 18 MG PO SCH (08:13)
[2019-05-05] MEDS: Potassium Chlor TAB* 20 MEQ TAB.ER PO SCH ×2 (08:14→20:50)
[2019-05-05] MEDS: Gabapentin CAP(*) 300 MG PO SCH ×3 (08:14→20:50)
[2019-05-05] MEDS: Losartan TAB* 25 MG PO SCH (08:15)
[2019-05-05] MEDS: glipiZIDE TAB* 5 MG PO SCH ×2 (08:15→17:27)
[2019-05-05] MEDS: Acetaminophen TAB* 325 MG PO PRN (08:18)
[2019-05-05] MEDS: Insulin LISPRO* 1 UNITS UNIT SUBCUT SCH ×4 (08:19→21:00)
[2019-05-05] MEDS: Docusate CAP* 100 MG PO SCH ×2 (08:20→20:53)
[2019-05-05] MEDS: DULoxetine DR CAP* 60 MG CAP.DR PO SCH (08:22)
[2019-05-05] MEDS: Hydrochlorothiazide TAB* 25 MG PO SCH (08:22)
[2019-05-05] MEDS: Tamsulosin CAP* 0.4 MG PO SCH (08:23)
--- NOTE | 2019-05-05 11:34 | PN ---
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 Therapy notes read and reviewed. Complains of dizziness and vertigo when he tries to get up. It could be the Flomax. His coto is out and he was able to void. He may be dry, will hold HCTZ for a few days and move Flomax to bedtime. He will be discussed in interdisciplinary team rounds. May need to d/c flomax. Also WBC up to 19 K. No fever. Lactic Acid drawn. Came back 2.2. Although the patient was asymptomatic, he met criteria for severe sepsis. I have ordered IV fluid bolus, CXR, blood cultures, U/A. As he had a coto, likely source is urine. Current Medications: Active Medications Generic Name Dose Route Start Last Admin Trade Name Freq PRN Reason Stop Dose Admin Acetaminophen 650 mg 04/29/19 13:59 05/05/19 08:18 Tylenol Tab* PO 650 mg Q6H PRN Administration MILD PAIN or TEMP > 100.4 Atorvastatin Calcium 40 mg 04/30/19 17:00 05/04/19 16:34 Lipitor* PO 40 mg 1700 JOÃO Administration Bisacodyl 10 mg 04/29/19 13:59 Dulcolax Supp* [place] DAILY PRN CONSTIPATION Dextrose 25 ml 04/29/19 14:07 Dextrose 50% Vial 50 Ml* IV PUSH .FOR FS < 60 - SS PRN FS < 60 Docusate Sodium 100 mg 04/29/19 21:00 05/05/19 08:20 Colace Cap* PO Not Given BID JOÃO Duloxetine HCl 60 mg 04/30/19 09:00 05/05/19 08:22 Cymbalta Cap* PO 60 mg DAILY JOÃO Administration Febuxostat 40 mg 05/01/19 21:00 05/04/19 21:01 Uloric(Nf) PO 40 mg BEDTIME JOÃO Administration Gabapentin 300 mg 04/29/19 21:00 05/05/19 08:14 Neurontin Cap(*) PO 300 mg TID JOÃO Administration Glipizide 10 mg 04/29/19 17:00 05/05/19 08:15 Glucotrol Tab* PO 10 mg 0800,1700 JOÃO Administration Hydrochlorothiazide 12.5 mg 04/30/19 09:00 09/24/19 08:22 Hydrodiuril Tab* PO 12.5 mg DAILY JOÃO Administration Hydrocortisone 1 applic 05/04/19 20:18 05/04/19 21:01 Hytone Cream 1%* TOPICAL 1 applic BID PRN Administration UPPER BACK DISCOMFORT Insulin Human Lispro 0 - 12 units 04/29/19 16:30 05/05/19 08:19 Humalog* SUBCUT 4 units ACHS JOÃO Administration Protocol Losartan Potassium 50 mg 04/30/19 09:00 05/05/19 08:15 Cozaar Tab* PO 50 mg DAILY JOÃO Administration Magnesium Hydroxide 30 ml 04/29/19 13:59 Milk Of Magnesia Liq* PO Q6H PRN CONSTIPATION Methocarbamol 1,000 mg 05/01/19 10:57 05/02/19 21:37 Robaxin Tab* PO 500 mg Q6H PRN Administration SPASMS Methylphenidate HCl 18 mg 04/30/19 09:00 05/05/19 08:13 Concerta Er Tab* PO 18 mg DAILY JOÃO Administration Oxycodone HCl 5 mg 04/29/19 14:24 05/04/19 16:45 Roxycodone Tab* PO 5 mg Q4H PRN Administration PAIN - SEVERE Potassium Chloride 20 meq 04/29/19 21:00 05/05/19 08:14 Klor Con Er Tab* PO 20 meq BID JOÃO Administration Senna 2 tab 04/29/19 21:00 05/04/19 21:01 Senokot 8.6 Mg Tab* PO Not Given BEDTIME JOÃO Tamsulosin HCl 0.4 mg 05/06/19 21:00 Flomax Cap* PO BEDTIME JOÃO Vital Signs: Vital Signs Temp Pulse Resp BP Pulse Ox 97.5 F 98 12 106/41 93 05/05/19 06:35 05/05/19 10:16 05/05/19 08:14 05/05/19 10:16 05/05/19 10:16 Lab Results: Laboratory Results - last 24 hr 05/05/19 04:37 WBC 19.6 H RBC 4.36 Hgb 13.8 L Hct 41 L MCV 94 MCH 32 H MCHC 34 RDW 13 Plt Count 377 MPV 7.9 Neut % (Auto) 83.8 Lymph % (Auto) 7.2 [place] % (Auto) 7.4 Eos % (Auto) 1.1 Baso % (Auto) 0.5 Absolute Neuts (auto) 16.4 H Absolute Lymphs (auto) 1.4 Absolute Monos (auto) 1.5 H Absolute Eos (auto) 0.2 Absolute Basos (auto) 0.1 Absolute Nucleated RBC 0.0 Nucleated RBC % 0.0 Exam: GENERAL: No apparent distress LUNGS: Clear HEART: reg rhythm ABDOMEN: SOft, +BS EXTREMITIES: Normal tone NEUROLOGIC: Sensation diminished in feet. Motor strength 5/5 in arms, legs 4+ Assessment/Plan: 1. Left MIS L4/5 TLIF: PT/OT 2. Severe sepsis: IV fluid bolus, IV ceftriaxone x 1 dose, repeat Lactic Acid at 1630. May need to transfer if Lactic Acid>2. CXR, U/A 3. Diabetes: Glipizide/SSI 4. Depression: Cymbalta/Methylphenidate 5. DPN: gabapentin 6. Advance Directives: Full code 7. DVT Prophylaxis: TEDs 8. Back Spasms: Methocarbamol 9. Urine Retention: Coto out, was able to void 10. Dizziness/Vertigo: Will hold HCTZ and move Flomax to bedtime 05/05/19 11:34 05/05/19 16:00
[2019-05-05] MEDS ORDERED: D5NS 0.9% 1000 ML BAG* 1,000 ML IV SCH (12:00)
--- NOTE | 2019-05-05 12:37 | PMRUTEAM ---
PMRU: Team Meeting Current Status: Nursing: Current Status Skin Deviations [Lower Back] Incision Skin Deviation Description [ healing Lower Back] Physical Therapy: Current Status Bed Mobility Assistance Contact Guard Assist Transfer Mobility Assistance Contact Guard Assist Transfer/Bed Mobility Rolling Walker Recommended Devices Ambulation Assistance Contact Guard Assist Ambulation Assistive Devices Rolling Walker Number of Feet Patient 150 Ambulated Stairs Assistance Contact Guard Assist Stairs Recommended Devices Two Rails Number of Stairs 10 Curb Not Tested Objective Comments Pt is safe to transfer and ambulate with RW/gait belt and 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 Occupational Therapy: Current Status Upper Body Dressing Min Assist Lower Body Dressing Max Asst,Total Assist Bathing Mod Assist Bathing Progress with max v/c's to not stand without brace Toileting Mod Assist Toilet Transfer Supervision,Contact Guard Assist Shower Transfer Supervision,Contact Guard Assist Eating Independent Rec Therapy: Current Status Summary of Assessment and Recreation Therapy services introduced and pt. is Clinical Impression aware of services. Pt. has been spending time with his in the afternoons and watching TV but very open and willing to participate in leisure visits. Treatment Goals Pt. will engage in leisure activities while on the unit. Treatment Plan Provide recreation therapy and encourage involvement. Nutrition: Current Status Monitoring pt adm 04/29; full nutrition assessment planned per NDS protocol. He has been eating well (90- 100%) on consistent carb diet (no fish/shellfish d /t allergy). FS ranging 164-208; receiving glipizide 10mg BID (vs only 5 mg BID at home). Recent A1c n/a. His skin is intact; low risk for [place] per [place] score. Initial goals as outlined below. Goals: Physical Therapy: Initial Goals Bed Mobility Assistance Independent Transfer Mobility Assistance Independent Transfer/Bed Mobility Rolling Walker Recommended Devices Ambulation Independent Ambulation Recommended Devices Rolling Walker Ambulation Distance 150 Stairs Assistance Supervision Stair Recommended Devices Straight Cane,One Rail Number of Stairs 12 Home Exercise Program Independent Assistance Physical Therapy: Updated Goals Transfer/Bed Mobility Rolling Walker Recommended Devices Occupational Therapy: Initial Goals Goals to be Completed in (Days 3-5 days ) Upper Body Bathing Routine Minimal Contact Assist Lower Body Bathing Routine Minimal Contact Assist Upper Body Dressing Routine Minimal Contact Assist Lower Body Dressing Routine Minimal Contact Assist Toilet Hygeine and Clothing Supervision/Set Up Management Routine Toilet Transfer Routine Supervision/Set Up Step-In Shower Transfer Supervision/Set Up Routine Functional Transfers for ADL Supervision/Set Up Grooming Routine Independent Feeding Routine Modified Independent with Nutrition: Goals Intervention Goals 1. adequate intake to support hydration and lean body mass without add'l wt gain 2. glycemic control within inpatient parameters; no s/sx hypo-hyperglycemia 3. achieve and maintain serum electrolytes WNL 4. regulation of bowel pattern; no c/o constipation (or diarrhea) Care Plan: Care Plan ADL's - Improve/Maintain Start: 04/30/19 08:19 Freq: [email or web address]@[id number] Status: Active Target: 05/01/19 Protocol: Activity Type Activity Date Activity User E-Sign Co-Sign Detail Recorded Client Recorded Date Recorded By Document 05/04/19 13:01 [id number] 05/04/19 13:01 [id number] 05/04/19 13:01 PMRU Outcome: ADL's/ADL Transfers Orders/Interventions Occupational Therapy Evaluation & Treatment Device Yes Address Deficits Secondary To: L L4-L5 MIS TLIF with PEEK intervody cage Patient to receive OT 5x/wk for 60-120 Therex min/day Self Care Management Group Therapy UE/LE ADL's with Assist Yes: Heather ADL Transfers with Assist Yes: Supervision Toileting: Transfers,Clothing Management Yes: ,Hygeine w/Assist Supervision Light Kitchen/Laundry w/Assist Yes Other Outcome/Goals Pt continues to be limited 2* motiviation and increased pain . Progression Toward Outcome/Goals Progressing Coping/Psych-Improve/Maintain Start: 04/29/19 16:53 Freq: DAILY@699,0 Status: Active Target: 05/06/19 Protocol: Activity Type Activity Date Activity User E-Sign Co-Sign Detail Recorded Client Recorded Date Recorded By Document 05/05/19 00:05 [id number] 05/05/19 00:06 [id number] 05/05/19 00:05 PMRU Outcome: Coping/Psychosocial Current Coping Outcome/Goals Verbalization of Acceptance of Rehab Admit Verbalization of Sense of Control Over Health Status Utilization of Appropriate Problem Solving Techniques Willingness to Participate in Treatment Plan and Basic Needs Progression Toward Outcome/Goals Progressing Current Psychosocial Outcome/Goals Maintain/ Improve Emotional Health Demonstrates Knowledge of Healthy Coping Mechanisms Available Cooperate/ Participate in Plan Progression Toward Outcome/Goals Progressing DVT Prophylaxis- Improve/Maintain Start: 04/29/19 16:53 Freq: DAILY@07,190 Status: Active Target: 05/06/19 Protocol: Activity Type Activity Date Activity User E-Sign Co-Sign Detail Recorded Client Recorded Date Recorded By Document 05/05/19 07:00 [id number] 05/05/19 09:32 [id number] 05/05/19 07:00 PMRU Outcome: DVT Prophylaxis Current DVT Outcome/Goals Remains Free of DVT Complies with DVT Prophylaxis /Treatment Demonstrates Knowledge of DVT Prevention/ Treatment TEDS Stockings on Every AM, Off at HS Progression Toward Outcome/Goals Progressing Discharge Planning - Improve/Maintain Start: 04/29/19 16:53 Freq: DAILY@[id number] Status: Active Target: 05/06/19 Protocol: Activity Type Activity Date Activity User E-Sign Co-Sign Detail Recorded Client Recorded Date Recorded By Document 05/05/19 00:05 [id number] [id number] 05/05/19 00:06 [id number] 05/05/19 00:05 PMRU Outcome: Discharge Planning Update Patient Family No Current Discharge Planning Outcome/Goals Demonstrates Understanding of Discharge Plan Progression Toward Outcome/Goals Progressing Education-Improve/Maintain Start: 04/29/19 16:53 Freq: DAILY@[id number] Status: Active Target: 05/06/19 Protocol: Activity Type Activity Date Activity User E-Sign Co-Sign Detail Recorded Client Recorded Date Recorded By Document 05/05/19 07:00 [id number] 05/05/19 09:32 [id number] 05/05/19 07:00 PMRU Outcome: Education Current Education Outcome/Goals Demonstrate/ Verbalize Understanding of Written Discharge Instructions Demonstrates Skills Encourage Questions Progression Toward Outcome/Goals Progressing /GI-Improve/Maintain Start: 04/29/19 16:53 Freq: DAILY@[id number] Status: Active Target: 05/06/19 Protocol: Activity Type Activity Date Activity User E-Sign Co-Sign Detail Recorded Client Recorded Date Recorded By Document 05/05/19 07:00 [id number] 05/05/19 09:32 [id number] 05/05/19 07:00 PMRU Outcome: Genitourinary/ Gastrointestinal Current Gastrointestinal Outcome/Goals Maintain/ Achieve Bowel Regularity in Accordance with Pt's Baseline Remain Free of Emesis Prevent Constipation Bowel Regularity at Home Laxatives as Ordered Progression Toward Outcome/Goals Progressing Current Genitourinary Outcome/Goals Maintain/ Achieve Urinary Continence Maintain/ Achieve Adequate Urinary Output Remain Free of Hospital- Acquired UTI Other Genitourinary Outcome/Goals Received from Sandra valderrama RN, nnamdi take out at 0630 Progression Toward Outcome/Goals Progressing Medication Administration Start: 04/29/19 16:53 Freq: DAILY@[id number] Status: Active Target: 05/06/19 Protocol: Activity Type Activity Date Activity User E-Sign Co-Sign Detail Recorded Client Recorded Date Recorded By Document 05/05/19 07:00 [id number] 05/05/19 09:32 [id number] 05/05/19 07:00 PMRU Outcome: Medication Administration Assess Patient Knowledge/Teach Med No Education for all Meds 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 No Metabolic Status- Improve/Maintain Start: 04/29/19 16:53 Freq: DAILY@ Status: Active Target: 05/06/19 Protocol: Activity Type Activity Date Activity User E-Sign Co-Sign Detail Recorded Client Recorded Date Recorded By Document 05/05/19 07:00 [id number] 05/05/19 09:32 [id number] 05/05/19 07:00 PMRU Outcome: Metabolic Status Have Fingersticks Been Ordered Yes Fingerstick Order Frequency AC & HS Current Metabolic Status Outcome/Goals Maintain/ Improve Metabolic Status Demonstrate Knowledge of Prevention/ Treatment of Metabolic Imbalances Progression Toward Outcome/Goals Progressing Mobility- Improve/Maintain Start: 04/29/19 17:07 Freq: DAILY@ Status: Active Target: 05/06/19 Protocol: Activity Type Activity Date Activity User E-Sign Co-Sign Detail Recorded Client Recorded Date Recorded By Document 05/02/19 15:47 [id number] 05/02/19 15:47 [id number] 05/02/19 15:47 PMRU Outcome: Mobility Physical Therapy Evaluation and Yes Treatment Activity OOB with Assistance Yes WBAT Yes Device Yes Assistance Yes Patient to be seen 5x/wk for 60-120 min/ Therex day for: Mobility Training Gait Training W/C Mobility Balance Current Mobility Outcome/Goals Improve Mobility Status Demonstrates Proper Use of Assistive Devices Progression Toward Outcome/Goals Progressing Outcome/Goals Met Improve Mobility Status Bed Mobility Yes: I Transfers Yes: I with RW Gait x ft Yes: 150' I with RW W/C Mobility x ft No Up/Down Stairs Yes: 12 with 1 rail + SPC, S With HEP Yes: I Pain/Comfort- Improve/Maintain Start: 04/29/19 16:53 Freq: DAILY@[id number] Status: Active Target: 05/06/19 Protocol: Activity Type Activity Date Activity User E-Sign Co-Sign Detail Recorded Client Recorded Date Recorded By Document 05/05/19 07:00 [id number] 05/05/19 09:32 [id number] 05/05/19 07:00 PMRU Outcome: Pain/Comfort Current Pain/Comfort Outcome/Goals Demonstrates Knowledge and Use of Available Comfort Measures Achieves Acceptable Comfort/Pain Level as Determined by Patient/Condit Maintain Comfort Level Allowing Patient to Fully Participate in Rehab Progression Toward Outcome/Goals Progressing Outcome/Goals Met Comment pt resting Rec Therapy- Improve/Maintain Start: 04/29/19 16:28 Freq: DAILY@ Status: Active Target: 05/08/19 Protocol: Activity Type Activity Date Activity User E-Sign Co-Sign Detail Recorded Client Recorded Date Recorded By Document 04/29/19 16:28 [id number] 04/29/19 16:28 [id number] 04/29/19 16:28 PMRU Outcome: Recreation Therapy Current Rec Ther Outcome/Goals Complete Rec Therapy Assessment Meet with Patient Regularly for Support Encourage Leisure Involvement Progression Toward Outcome/Goals Goal Initiation Safety- Improve/Maintain Start: 04/29/19 16:05 Freq: DAILY@ Status: Active Target: 05/06/19 Protocol: Activity Type Activity Date Activity User E-Sign Co-Sign Detail Recorded Client Recorded Date Recorded By Document 05/05/19 07:00 [id number] 05/05/19 09:32 [id number] 05/05/19 07:00 PMRU Outcome: Safety Current Safety Outcome/Goals Remain Free of Injury or Harm Cooperates with Safety Measures for Least Restrictive Environment Prevent Falls/ Injury Progression Toward Outcome/Goals Progressing Outcome/Goals Met Comment BA armed Skin- Improve/Maintain Start: 04/29/19 16:53 Freq: DAILY@0700,1900 Status: Active Target: 05/06/19 Protocol: Activity Type Activity Date Activity User E-Sign Co-Sign Detail Recorded Client Recorded Date Recorded By Document 05/05/19 07:00 [id number] 05/05/19 09:32 [id number] 05/05/19 07:00 PMRU Outcome: Skin Skin Risk Level Mild Risk Skin Orders Turn/Position q2hr While in Bed Current Skin Outcome/Goals Maintain/ Improve Skin Integrity Free from Pressure Injury Surgical Incisions Healing Progression Toward Outcome/Goals Progressing Medicine Note: Length of Stay: 3 days Anticipated Discharge Destination: home Tentative Discharge Date: 05/08/19 Discharged to: Home
[2019-05-05] MEDS ORDERED: cefTRIAXone(*) 1 GM in NS 0.9% 50 ML* 50 ML IVPB SCH (16:00)
[2019-05-05] MEDS: NS 0.9% IV ONE ×2 (16:50→18:00)
[2019-05-05] MEDS: Atorvastatin* 40 MG TAB PO SCH (17:27)
[2019-05-05 18:03] LABS: Albumin 3.9 g/dL (3.2-5.2); Albumin/Globulin Ratio 1.1 (1-3); BUN/Creatinine Ratio 20.7 (8-20); Calcium 9.2 mg/dL (8.6-10.3); EGFR African American 104.1 (>60); Globulin 3.5 g/dL (2-4); Potassium 3.9 mmol/L (3.5-5.0); Total Bilirubin 0.5 mg/dL (0.2-1.0); Total Protein 7.4 g/dL (6.4-8.9)
--- NOTE | 2019-05-05 19:49 | PN ---
Sepsis Event Evaluation Date of Evaluation: 05/05/19 Time of Evaluation: 19:30 Current Stage of Sepsis: Sepsis Vital Signs - Last 12 Hours: Vital Signs - 12 hr Temp Pulse Resp BP Pulse Ox 05/05/19 15:59 99.0 F 102 16 143/77 98 05/05/19 14:15 20 05/05/19 14:10 20 05/05/19 10:16 98 106/41 93 05/05/19 08:14 12 05/05/19 08:00 12 93 Lactic Acid: 05/05/19 05/05/19 13:30 17:34 Lactic Acid 2.2 H* 2.1 H* - Cardiopulmonary Exam Capillary Refill: Immediate Respiratory: Clear to Auscultation Cardiovascular: NL Sounds; No Murmurs; No JVD - Peripheral Pulse Exam Radial Pulses: Bilateral Normal Pedal Pulses: Bilateral Normal Posterior Tibial Pulse: Bilateral Normal Femoral Pulses: Bilateral Normal Popliteal Pulses: Bilateral Normal - Skin Exam Skin Exam: Normal Turgor, Flushed - Ferdinand Coma Scale Best Eye Response: 4 - Spontaneous Best Motor Response: 6 - Obeys Commands Best Verbal Response: 5 - Oriented - Patient alert and oriented. Still feels slightly vertiginous. Coma Scale Total: 15 Assess/Plan/Problems-Billing 1. Left MIS L4/5 TLIF: PT/OT 2. Severe sepsis: IV fluid bolus, IV ceftriaxone x 1 dose, repeat Lactic Acid at 1630. May need to transfer if Lactic Acid>2. CXR, U/A 3. Diabetes: Glipizide/SSI 4. Depression: Cymbalta/Methylphenidate 5. DPN: gabapentin 6. Advance Directives: Full code 7. DVT Prophylaxis: TEDs 8. Back Spasms: Methocarbamol 9. Urine Retention: Turner out, was able to void 10. Dizziness/Vertigo: Will hold HCTZ and move Flomax to bedtime 05/05/19 11:34 05/05/19 16:00
[2019-05-05 20:26] LABS: Urine Appearance Cloudy; Urine Bacteria Absent (Absent); Urine Bilirubin Negative (Negative); Urine Blood Negative (Negative); Urine Color Yellow; Urine Glucose Negative (Negative); Urine Ketones Negative (Negative); Urine Nitrite Negative (Negative); Urine Protein Negative (Negative); Urine Red Blood Cell Trace(0-2/hpf) (Absent); Urine Specific Gravity 1.014 (1.010-1.030); Urine Squamous Epithelial Cell Present (Absent); Urine Urobilinogen Negative (Negative); Urine White Blood Cell 3+(>20/hpf) (Absent)
[2019-05-05] MEDS: FEBUXOSTAT 40 MG PO SCH (20:50)
[2019-05-05] MEDS: Senna TAB 8.6 mg* TAB PO SCH (20:53)
[2019-05-05] MEDS ORDERED: NS 0.9% 1000 ML** 1,000 ML IV SCH (21:15)
[2019-05-05 21:33] LABS: Hematocrit 36 % (42-52); Hemoglobin 12.3 g/dL (14.0-18.0); Mean Corpuscular HGB Conc 34 g/dL (31-36); Mean Corpuscular Hemoglobin 32 pg (27-31); Mean Corpuscular Volume 93 fL (80-94); Mean Platelet Volume 7.8 fL (7.4-10.4); Platelet Count 360 10^3/uL (150-450); Red Blood Count 3.88 10^6 /uL (4.18-5.48); Red Cell Distribution Width 13 % (10-15); White Blood Count 24.2 10^3/uL (3.5-10.8)
[2019-05-05 22:37] LABS: ABS Basophils 0.1 10^3/ul (0-0.2); ABS Eosinophils 0.1 10^3/ul (0-0.6); ABS Lymphocytes 1.8 10^3/ul (1.0-4.8); ABS Neutrophils 20.2 10^3/ul (1.5-7.7); Eosinophil % 0.3 %; Lymphocyte % 7.6 %
[2019-05-06] MEDS: oxyCODONE TAB* 5 MG TAB PO PRN ×3 (01:53→20:56)
--- NOTE | 2019-05-06 09:48 | PN ---
Progress Note - Progress Note Date of Service: 05/06/19 SOAP: Subjective: CC: Leukocytosis HPI: Mr. Allred is a 73 yo male with PMH significant for hx prostatitis, DM2, HTN, depression, GOUT, HLD, BPH, obesity, peripheral neuropathy, DENAE, and osteoarthritis. He underwent a minimally invasice L4-5 TLIF with contralateral laminectomy for decompression, and right iliac crest bone graft harvest, insertion of PEEK interbody cage, autologous bone graft, pedicle screws at L4 & L5 bilateral on 04/21/[address] Gallego. Postop he developed fevers and had a negative work-up, he received a course of IV and PO ABX. Denies fever, chills , nausea, vomiting, ABD pain, diarrhea, left knee pain, or increased back pain. Reports fever yesterday, nasal congestion with occasional cough, lower back muscle cramping, and poor appetite. Objective: Vital Signs - 8 hr 05/06/19 05/06/19 05/06/19 01:53 04:00 05:05 Temperature 97.4 F Pulse Rate 80 Respiratory 16 16 16 Rate Blood Pressure 132/70 (mmHg) O2 Sat by Pulse 96 Oximetry Physical Exam: General: NAD, sitting up in bed Neurological: Alert and Oriented x3 HEENT: Moist MM, no thrush Cardiovascular: Heart rate regular Respiratory: Lung sounds clear, diminished in the bases Abdominal: Bowel sounds present; ABD soft, non tender and non distended MSK: Left knee - No effusion, no tenderness with palpation, full ROM, no erythema or edema. Back - No tenderness with palpation of the neck, back or spine Skin: No rash. Incisions to lower back well approximated, no edema or erythema Laboratory Results - last 24 hr 05/05/19 05/05/19 05/05/19 13:30 13:30 17:33 Sodium 131 L Potassium 3.9 Chloride 97 L Carbon Dioxide 26 Anion Gap 8 BUN 18 Creatinine 0.87 Est GFR ( Amer) 104.1 Est GFR (Non-Af Amer) 86.0 BUN/Creatinine Ratio 20.7 H Glucose 283 H Lactic Acid 2.2 H* Calcium 9.2 Total Bilirubin 0.50 AST 31 ALT 52 Alkaline Phosphatase 90 C-Reactive Protein 117.85 H Total Protein 7.4 Albumin 3.9 Globulin 3.5 Albumin/Globulin Ratio 1.1 05/05/19 05/05/19 05/05/19 17:34 20:09 21:28 WBC 24.2 H RBC 3.88 L Hgb 12.3 L Hct 36 L MCV 93 MCH 32 H MCHC 34 RDW 13 Plt Count 360 MPV 7.8 Neut % (Auto) 83.2 Lymph % (Auto) 7.6 [place] % (Auto) 8.3 Eos % (Auto) 0.3 Baso % (Auto) 0.6 Absolute Neuts (auto) 20.2 H Absolute Lymphs (auto) 1.8 Absolute Monos (auto) 2.0 H Absolute Eos (auto) 0.1 Absolute Basos (auto) 0.1 Absolute Nucleated RBC 0.0 Nucleated RBC % 0.0 Est GFR (Non-Af Amer) BUN/Creatinine Ratio Lactic Acid 2.1 H* Urine Color Yellow Urine Appearance Cloudy Urine pH 6.0 Ur Specific [place] 1.014 Urine Protein Negative Urine Ketones Negative Urine Blood Negative Urine Nitrate Negative Urine Bilirubin Negative Urine Urobilinogen Negative Ur Leukocyte Esterase 1+ A Urine WBC (Auto) 3+(>20/hpf) A Urine RBC (Auto) Trace(0-2/hpf) Ur Squamous Epith Cells Present A Urine Bacteria Absent Urine Glucose Negative 05/05/19 21:28 Lactic Acid 0.9 Assessment: 1. Leukocytosis. Differential diagnosis includes: Epidural abscess, C diff colitis, PNA, UTI, joint infection, surgical site infection, stress response. Denies diarrhea, low suspicion for c diff. Joints, including prosthetic left knee benign, low suspicion for septic joint. Chest xray yesterday negative for acute findings, no evidence for PNA. Urine analysis with 1+ LE and 3+ WBCs, bacteria absent, urine culture pending. No signs of surgical site infection. No increased back pain, no tenderness with palpation of the spine. Blood cultures pending at this time. Afebrile. Unclear cause at this time 2. DM2. 3. Obesity. BMI 30.9 4. Hx left total knee arthroplasty. 5. Hx prostatitis. 6. LEVAQUIN and SULFA allergy.. Plan: Hold on further ABX at this time, there is no sign of infection. 35 minutes Floor time: >50 % face to face in counseling with patient and regarding lab results and possible causes of infection and plan of care. All questions answered.
[2019-05-06] MEDS: Insulin LISPRO* 1 UNITS UNIT SUBCUT SCH ×4 (10:09→20:54)
[2019-05-06] MEDS: Hydrocortisone 1% CREAM* 30 GM TUBE TOPICAL PRN (10:11)
[2019-05-06] MEDS: Gabapentin CAP(*) 300 MG PO SCH ×3 (10:12→20:53)
[2019-05-06] MEDS: Docusate CAP* 100 MG PO SCH ×2 (10:12→20:57)
[2019-05-06] MEDS: glipiZIDE TAB* 5 MG PO SCH ×2 (10:12→18:03)
[2019-05-06] MEDS: DULoxetine DR CAP* 60 MG CAP.DR PO SCH (10:12)
[2019-05-06] MEDS: Methylphenidate ER TAB* 18 MG PO SCH (10:12)
[2019-05-06] MEDS: Losartan TAB* 25 MG PO SCH (10:16)
[2019-05-06] MEDS: Potassium Chlor TAB* 20 MEQ TAB.ER PO SCH ×2 (10:16→20:53)
[2019-05-06] MEDS: Hydrochlorothiazide TAB* 25 MG PO SCH (10:19)
[2019-05-06 11:54] LABS: ABS Basophils 0.1 10^3/ul (0-0.2); ABS Eosinophils 0.1 10^3/ul (0-0.6); ABS Lymphocytes 1.6 10^3/ul (1.0-4.8); ABS Monocytes 1.4 10^3/ul (0-0.8); ABS Neutrophils 16.9 10^3/ul (1.5-7.7); Eosinophil % 0.5 %; Hematocrit 38 % (42-52); Hemoglobin 12.5 g/dL (14.0-18.0); Lymphocyte % 7.8 %; Mean Corpuscular HGB Conc 33 g/dL (31-36); Mean Corpuscular Hemoglobin 32 pg (27-31); Mean Corpuscular Volume 94 fL (80-94); Mean Platelet Volume 7.9 fL (7.4-10.4); Platelet Count 357 10^3/uL (150-450); Red Blood Count 3.97 10^6 /uL (4.18-5.48); Red Cell Distribution Width 13 % (10-15); White Blood Count 20.1 10^3/uL (3.5-10.8)
[2019-05-06] MEDS ORDERED: Meclizine TAB* 12.5 MG PO PRN (12:23)
[2019-05-06] MEDS ORDERED: Gadoteridol* (CONTRAST) 279.3 MG/ML 10 ML IV ONE (17:16)
[2019-05-06] MEDS: Atorvastatin* 40 MG TAB PO SCH (18:03)
--- NOTE | 2019-05-06 19:30 | PN ---
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 Therapy notes read and reviewed. By last night his lactic acid was down to 0.9. ID consult obtained and they wished to stop Ceftriaxone. WBC down slightly this am. He says he was dizzy and vertiginous and has had memory problems since the surgery. The dizziness is not new. MRI of brain showed no infarct or masses or lesions. His memory remains off. Will check WBC in am. He was able to walk with PT. Current Medications: Active Medications Generic Name Dose Route Start Last Admin Trade Name Freq PRN Reason Stop Dose Admin Acetaminophen 650 mg 04/29/19 13:59 05/05/19 08:18 Tylenol Tab* PO 650 mg Q6H PRN Administration MILD PAIN or TEMP > 100.4 Atorvastatin Calcium 40 mg 04/30/19 17:00 05/06/19 18:03 Lipitor* PO 40 mg 1700 JOÃO Administration Bisacodyl 10 mg 04/29/19 13:59 Dulcolax Supp* [place] DAILY PRN CONSTIPATION Dextrose 25 ml 04/29/19 14:07 Dextrose 50% Vial 50 Ml* IV PUSH .FOR FS < 60 - SS PRN FS < 60 Docusate Sodium 100 mg 04/29/19 21:00 05/06/19 10:12 Colace Cap* PO Not Given BID JOÃO Duloxetine HCl 60 mg 04/30/19 09:00 05/06/19 10:12 Cymbalta Cap* PO 60 mg DAILY JOÃO Administration Febuxostat 40 mg 05/01/19 21:00 05/05/19 20:50 Uloric(Nf) PO 40 mg BEDTIME JOÃO Administration Gabapentin 300 mg 04/29/19 21:00 05/06/19 13:00 Neurontin Cap(*) PO 300 mg TID JOÃO Administration Glipizide 10 mg 04/29/19 17:00 05/06/19 18:03 Glucotrol Tab* PO 10 mg 0800,1700 JOÃO Administration Hydrocortisone 1 applic 05/04/19 20:18 05/06/19 10:11 Hytone Cream 1%* TOPICAL 1 applic BID PRN Administration UPPER BACK DISCOMFORT Sodium Chloride 1,000 mls @ 75 mls/hr 05/05/19 21:15 05/05/19 22:56 Ns 0.9% 1000 Ml IV 75 mls/hr PER RATE JOÃO Administration Insulin Human Lispro 0 - 12 units 04/29/19 16:30 05/06/19 13:01 Humalog* SUBCUT 2 units ACHS JOÃO Administration Protocol Losartan Potassium 50 mg 04/30/19 09:00 05/06/19 10:16 Cozaar Tab* PO 50 mg DAILY JOÃO Administration Magnesium Hydroxide 30 ml 04/29/19 13:59 Milk Of Magnesia Liq* PO Q6H PRN CONSTIPATION Meclizine HCl 12.5 mg 05/06/19 12:23 Antivert Tab* PO Q8HR PRN DIZZINESS Methocarbamol 1,000 mg 05/01/19 10:57 05/02/19 21:37 Robaxin Tab* PO 500 mg Q6H PRN Administration SPASMS Methylphenidate HCl 18 mg 04/30/19 09:00 05/06/19 10:12 Concerta Er Tab* PO 18 mg DAILY JOÃO Administration Oxycodone HCl 5 mg 04/29/19 14:24 05/06/19 06:12 Roxycodone Tab* PO 5 mg Q4H PRN Administration PAIN - SEVERE Potassium Chloride 20 meq 04/29/19 21:00 05/06/19 10:16 Klor Con Er Tab* PO 20 meq BID JOÃO Administration Senna 2 tab 04/29/19 21:00 05/05/19 20:53 Senokot 8.6 Mg Tab* PO Not Given BEDTIME JOÃO Tamsulosin HCl 0.4 mg 05/06/19 21:00 Flomax Cap* PO BEDTIME JOÃO Vital Signs: Vital Signs Temp Pulse Resp BP Pulse Ox 98.2 F 85 22 123/62 99 05/06/19 17:09 05/06/19 17:09 05/06/19 17:09 05/06/19 17:09 05/06/19 17:09 Lab Results: Laboratory Results - last 24 hr 05/04/19 05/04/19 05/04/19 07:37 11:42 16:35 WBC RBC Hgb Hct MCV MCH MCHC RDW Plt Count MPV Neut % (Auto) Lymph % (Auto) [place] % (Auto) Eos % (Auto) Baso % (Auto) Absolute Neuts (auto) Absolute Lymphs (auto) Absolute Monos (auto) Absolute Eos (auto) Absolute Basos (auto) Absolute Nucleated RBC Nucleated RBC % POC Glucose (mg/dL) 200 H 195 H 129 H Lactic Acid Urine Color Urine Appearance Urine pH Ur Specific [place] Urine Protein Urine Ketones Urine Blood Urine Nitrate Urine Bilirubin Urine Urobilinogen Ur Leukocyte Esterase Urine WBC (Auto) Urine RBC (Auto) Ur Squamous Epith Cells Urine Bacteria Urine Glucose 05/04/19 05/05/19 05/05/19 20:52 07:48 11:48 WBC RBC Hgb Hct MCV MCH MCHC RDW Plt Count MPV Neut % (Auto) Lymph % (Auto) [place] % (Auto) Eos % (Auto) Baso % (Auto) Absolute Neuts (auto) Absolute Lymphs (auto) Absolute Monos (auto) Absolute Eos (auto) Absolute Basos (auto) Absolute Nucleated RBC Nucleated RBC % POC Glucose (mg/dL) 314 H 222 H 235 H Lactic Acid Urine Color Urine Appearance Urine pH Ur Specific [place] Urine Protein Urine Ketones Urine Blood Urine Nitrate Urine Bilirubin Urine Urobilinogen Ur Leukocyte Esterase Urine WBC (Auto) Urine RBC (Auto) Ur Squamous Epith Cells Urine Bacteria Urine Glucose 05/05/19 05/05/19 05/05/19 16:20 20:09 20:52 WBC RBC Hgb Hct MCV MCH MCHC RDW Plt Count MPV Neut % (Auto) Lymph % (Auto) [place] % (Auto) Eos % (Auto) Baso % (Auto) Absolute Neuts (auto) Absolute Lymphs (auto) Absolute Monos (auto) Absolute Eos (auto) Absolute Basos (auto) Absolute Nucleated RBC Nucleated RBC % POC Glucose (mg/dL) 303 H 155 H Lactic Acid Urine Color Yellow Urine Appearance Cloudy Urine pH 6.0 Ur Specific [place] 1.014 Urine Protein Negative Urine Ketones Negative Urine Blood Negative Urine Nitrate Negative Urine Bilirubin Negative Urine Urobilinogen Negative Ur Leukocyte Esterase 1+ A Urine WBC (Auto) 3+(>20/hpf) A Urine RBC (Auto) Trace(0-2/hpf) Ur Squamous Epith Cells Present A Urine Bacteria Absent Urine Glucose Negative 05/05/19 05/05/19 05/06/19 21:28 21:28 07:39 WBC 24.2 H RBC 3.88 L Hgb 12.3 L Hct 36 L MCV 93 MCH 32 H MCHC 34 RDW 13 Plt Count 360 MPV 7.8 Neut % (Auto) 83.2 Lymph % (Auto) 7.6 [place] % (Auto) 8.3 Eos % (Auto) 0.3 Baso % (Auto) 0.6 Absolute Neuts (auto) 20.2 H Absolute Lymphs (auto) 1.8 Absolute Monos (auto) 2.0 H Absolute Eos (auto) 0.1 Absolute Basos (auto) 0.1 Absolute Nucleated RBC 0.0 Nucleated RBC % 0.0 POC Glucose (mg/dL) 157 H Lactic Acid 0.9 Urine Color Urine Appearance Urine pH Ur Specific [place] Urine Protein Urine Ketones Urine Blood Urine Nitrate Urine Bilirubin Urine Urobilinogen Ur Leukocyte Esterase Urine WBC (Auto) Urine RBC (Auto) Ur Squamous Epith Cells Urine Bacteria Urine Glucose 05/06/19 05/06/19 05/06/19 11:36 12:42 16:18 WBC 20.1 H RBC 3.97 L Hgb 12.5 L Hct 38 L MCV 94 MCH 32 H MCHC 33 RDW 13 Plt Count 357 MPV 7.9 Neut % (Auto) 84.3 Lymph % (Auto) 7.8 [place] % (Auto) 6.8 Eos % (Auto) 0.5 Baso % (Auto) 0.6 Absolute Neuts (auto) 16.9 H Absolute Lymphs (auto) 1.6 Absolute Monos (auto) 1.4 H Absolute Eos (auto) 0.1 Absolute Basos (auto) 0.1 Absolute Nucleated RBC 0.0 Nucleated RBC % 0.0 POC Glucose (mg/dL) 199 H 191 H Lactic Acid Urine Color Urine Appearance Urine pH Ur Specific [place] Urine Protein Urine Ketones Urine Blood Urine Nitrate Urine Bilirubin Urine Urobilinogen Ur Leukocyte Esterase Urine WBC (Auto) Urine RBC (Auto) Ur Squamous Epith Cells Urine Bacteria Urine Glucose Exam: GENERAL: No apparent distress LUNGS: Clear HEART: reg rhythm ABDOMEN: SOft, +BS EXTREMITIES: Normal tone NEUROLOGIC: Sensation diminished in feet. Motor strength 5/5 in arms, legs 4+ Assessment/Plan: 1. Left MIS L4/5 TLIF: PT/OT 2. Severe sepsis: Had IV fluid bolus, IV ceftriaxone x 1 dose. Lactic Acid 0.9 last night. CXR negative, U/A equivocal, cultures negative 3. Diabetes: Glipizide/SSI 4. Depression: Cymbalta/Methylphenidate 5. DPN: gabapentin 6. Advance Directives: Full code 7. DVT Prophylaxis: TEDs 8. Back Spasms: Methocarbamol 9. Urine Retention: Turner out, was able to void 10. Dizziness/Vertigo: Will hold HCTZ and move Flomax to bedtime 05/06/19 19:31
[2019-05-06] MEDS: Tamsulosin CAP* 0.4 MG PO SCH (20:53)
[2019-05-06] MEDS: FEBUXOSTAT 40 MG PO SCH (20:57)
[2019-05-06] MEDS: Senna TAB 8.6 mg* TAB PO SCH (20:57)
[2019-05-07 04:43] LABS: ABS Basophils 0.1 10^3/ul (0-0.2); ABS Eosinophils 0.3 10^3/ul (0-0.6); ABS Neutrophils 11.4 10^3/ul (1.5-7.7); Eosinophil % 2.1 %; Hematocrit 36 % (42-52); Hemoglobin 11.8 g/dL (14.0-18.0); Lymphocyte % 13.3 %; Mean Corpuscular HGB Conc 33 g/dL (31-36); Mean Corpuscular Hemoglobin 31 pg (27-31); Mean Corpuscular Volume 94 fL (80-94); Mean Platelet Volume 7.5 fL (7.4-10.4); Platelet Count 338 10^3/uL (150-450); Red Blood Count 3.83 10^6 /uL (4.18-5.48); Red Cell Distribution Width 13 % (10-15); White Blood Count 14.8 10^3/uL (3.5-10.8)
[2019-05-07] MEDS: Insulin LISPRO* 1 UNITS UNIT SUBCUT SCH ×4 (08:45→21:04)
[2019-05-07] MEDS: Methylphenidate ER TAB* 18 MG PO SCH (08:46)
[2019-05-07] MEDS: Potassium Chlor TAB* 20 MEQ TAB.ER PO SCH ×2 (08:46→21:03)
[2019-05-07] MEDS: DULoxetine DR CAP* 60 MG CAP.DR PO SCH (08:47)
[2019-05-07] MEDS: glipiZIDE TAB* 5 MG PO SCH ×2 (08:47→17:22)
[2019-05-07] MEDS: Losartan TAB* 25 MG PO SCH (08:47)
[2019-05-07] MEDS: Gabapentin CAP(*) 300 MG PO SCH ×3 (08:47→21:03)
[2019-05-07] MEDS: Docusate CAP* 100 MG PO SCH ×2 (08:49→21:03)
[2019-05-07] MEDS: Acetaminophen TAB* 325 MG PO PRN ×2 (11:50→21:02)
--- NOTE | 2019-05-07 14:48 | PN ---
Progress Note Date of Service: 05/07/19 Note: PORTER DAVILA was visited. Therapy notes read and reviewed. WBC down to 14.9. He was able to do all his therapies today. Remains below his baseline cognitively. He is afebrile. I am planning to discharge him home tomorrow. He can follow with Dr. Desai next week. Current Medications: Active Medications Generic Name Dose Route Start Last Admin Trade Name Freq PRN Reason Stop Dose Admin Acetaminophen 650 mg 04/29/19 13:59 05/07/19 11:50 Tylenol Tab* PO 650 mg Q6H PRN Administration MILD PAIN or TEMP > 100.4 Atorvastatin Calcium 40 mg 04/30/19 17:00 05/06/19 18:03 Lipitor* PO 40 mg 1700 JOÃO Administration Bisacodyl 10 mg 04/29/19 13:59 Dulcolax Supp* [place] DAILY PRN CONSTIPATION Dextrose 25 ml 04/29/19 14:07 Dextrose 50% Vial 50 Ml* IV PUSH .FOR FS < 60 - SS PRN FS < 60 Docusate Sodium 100 mg 04/29/19 21:00 05/07/19 08:49 Colace Cap* PO Not Given BID JOÃO Duloxetine HCl 60 mg 04/30/19 09:00 05/07/19 08:47 Cymbalta Cap* PO 60 mg DAILY JOÃO Administration Febuxostat 40 mg 05/01/19 21:00 05/06/19 20:57 Uloric(Nf) PO 40 mg BEDTIME JOÃO Administration Gabapentin 300 mg 04/29/19 21:00 05/07/19 08:47 Neurontin Cap(*) PO 300 mg TID JOÃO Administration Glipizide 10 mg 04/29/19 17:00 05/07/19 08:47 Glucotrol Tab* PO 10 mg 0800,1700 JOÃO Administration Hydrocortisone 1 applic 05/04/19 20:18 05/06/19 10:11 Hytone Cream 1%* TOPICAL 1 applic BID PRN Administration UPPER BACK DISCOMFORT Sodium Chloride 1,000 mls @ 75 mls/hr 05/05/19 21:15 05/05/19 22:56 Ns 0.9% 1000 Ml IV 75 mls/hr PER RATE JOÃO Administration Insulin Human Lispro 0 - 12 units 04/29/19 16:30 05/07/19 12:15 Humalog* SUBCUT 4 units ACHS JOÃO Administration Protocol Losartan Potassium 50 mg 04/30/19 09:00 05/07/19 08:47 Cozaar Tab* PO 50 mg DAILY JOÃO Administration Magnesium Hydroxide 30 ml 04/29/19 13:59 Milk Of Magnesia Liq* PO Q6H PRN CONSTIPATION Meclizine HCl 12.5 mg 05/06/19 12:23 Antivert Tab* PO Q8HR PRN DIZZINESS Methocarbamol 1,000 mg 05/01/19 10:57 05/02/19 21:37 Robaxin Tab* PO 500 mg Q6H PRN Administration SPASMS Methylphenidate HCl 18 mg 04/30/19 09:00 05/07/19 08:46 Concerta Er Tab* PO 18 mg DAILY JOÃO Administration Oxycodone HCl 5 mg 04/29/19 14:24 05/06/19 20:56 Roxycodone Tab* PO 5 mg Q4H PRN Administration PAIN - SEVERE Potassium Chloride 20 meq 04/29/19 21:00 05/07/19 08:46 Klor Con Er Tab* PO 20 meq BID JÃOO Administration Senna 2 tab 04/29/19 21:00 05/06/19 20:57 Senokot 8.6 Mg Tab* PO Not Given BEDTIME JOÃO Tamsulosin HCl 0.4 mg 05/06/19 21:00 05/06/19 20:53 Flomax Cap* PO 0.4 mg BEDTIME JOÃO Administration Vital Signs: Vital Signs Temp Pulse Resp BP Pulse Ox 97.3 F 85 18 135/77 96 05/07/19 06:35 05/07/19 06:35 05/07/19 11:56 05/07/19 06:35 05/07/19 06:35 Lab Results: Laboratory Results - last 24 hr 05/06/19 05/06/19 05/06/19 12:42 16:18 20:25 WBC RBC Hgb Hct MCV MCH MCHC RDW Plt Count MPV Neut % (Auto) Lymph % (Auto) [place] % (Auto) Eos % (Auto) Baso % (Auto) Absolute Neuts (auto) Absolute Lymphs (auto) Absolute Monos (auto) Absolute Eos (auto) Absolute Basos (auto) Absolute Nucleated RBC Nucleated RBC % POC Glucose (mg/dL) 199 H 191 H 238 H 05/07/19 05/07/19 05/07/19 04:23 07:47 12:05 WBC 14.8 H RBC 3.83 L Hgb 11.8 L Hct 36 L MCV 94 MCH 31 MCHC 33 RDW 13 Plt Count 338 MPV 7.5 Neut % (Auto) 77.1 Lymph % (Auto) 13.3 [place] % (Auto) 7.1 Eos % (Auto) 2.1 Baso % (Auto) 0.4 Absolute Neuts (auto) 11.4 H Absolute Lymphs (auto) 2.0 Absolute Monos (auto) 1.0 H Absolute Eos (auto) 0.3 Absolute Basos (auto) 0.1 Absolute Nucleated RBC 0.0 Nucleated RBC % 0.0 POC Glucose (mg/dL) 238 H 210 H Exam: GENERAL: No apparent distress LUNGS: Clear HEART: reg rhythm ABDOMEN: SOft, +BS EXTREMITIES: Normal tone NEUROLOGIC: Sensation diminished in feet. Motor strength 5/5 in arms, legs 4+ Assessment/Plan: 1. Left MIS L4/5 TLIF: PT/OT 2. Possible sepsis: Had IV fluid bolus, IV ceftriaxone x 1 dose. Cultures negative. WBC down to 14.9 3. Diabetes: Glipizide/SSI 4. Depression: Cymbalta/Methylphenidate 5. DPN: gabapentin 6. Advance Directives: Full code 7. DVT Prophylaxis: TEDs 8. Back Spasms: Methocarbamol 9. Urine Retention: Turner out, was able to void 10. Dizziness/Vertigo: Will hold HCTZ and move Flomax to bedtime 05/06/19 19:31 05/07/19 14:48
[2019-05-07] MEDS: oxyCODONE TAB* 5 MG TAB PO PRN (17:22)
[2019-05-07] MEDS: Atorvastatin* 40 MG TAB PO SCH (17:22)
[2019-05-07] MEDS: Tamsulosin CAP* 0.4 MG PO SCH (21:02)
[2019-05-07] MEDS: FEBUXOSTAT 40 MG PO SCH (21:02)
[2019-05-07] MEDS: Senna TAB 8.6 mg* TAB PO SCH (21:02)
[2019-05-08] MEDS: Acetaminophen TAB* 325 MG PO PRN (02:45)
[2019-05-08 04:23] LABS: ABS Basophils 0.1 10^3/ul (0-0.2); ABS Eosinophils 0.5 10^3/ul (0-0.6); ABS Lymphocytes 1.9 10^3/ul (1.0-4.8); ABS Monocytes 0.7 10^3/ul (0-0.8); ABS Neutrophils 6.5 10^3/ul (1.5-7.7); Eosinophil % 4.7 %; Hematocrit 38 % (42-52); Hemoglobin 12.6 g/dL (14.0-18.0); Lymphocyte % 20.1 %; Mean Corpuscular HGB Conc 33 g/dL (31-36); Mean Corpuscular Hemoglobin 31 pg (27-31); Mean Corpuscular Volume 94 fL (80-94); Mean Platelet Volume 7.8 fL (7.4-10.4); Nucleated Red Blood Cells % 0.1; Platelet Count 355 10^3/uL (150-450); Red Blood Count 4.03 10^6 /uL (4.18-5.48); Red Cell Distribution Width 13 % (10-15); White Blood Count 9.7 10^3/uL (3.5-10.8)
[2019-05-08 04:42] LABS: Albumin 3.6 g/dL (3.2-5.2); Albumin/Globulin Ratio 1.1 (1-3); BUN/Creatinine Ratio 20.2 (8-20); Calcium 9.5 mg/dL (8.6-10.3); EGFR African American 108.4 (>60); EGFR Non-African American 89.6 (>60); Globulin 3.2 g/dL (2-4); Potassium 4.3 mmol/L (3.5-5.0); Total Bilirubin 0.4 mg/dL (0.2-1.0); Total Protein 6.8 g/dL (6.4-8.9)
[2019-05-08 06:03] VITALS: BP 139/67
[2019-05-08] MEDS: glipiZIDE TAB* 5 MG PO SCH (08:02)
[2019-05-08] MEDS: Losartan TAB* 25 MG PO SCH (08:02)
[2019-05-08] MEDS: DULoxetine DR CAP* 60 MG CAP.DR PO SCH (08:02)
[2019-05-08] MEDS: Potassium Chlor TAB* 20 MEQ TAB.ER PO SCH (08:03)
[2019-05-08] MEDS: Methylphenidate ER TAB* 18 MG PO SCH (08:03)
[2019-05-08] MEDS: Insulin LISPRO* 1 UNITS UNIT SUBCUT SCH ×2 (08:03→13:17)
[2019-05-08] MEDS: Docusate CAP* 100 MG PO SCH (08:03)
[2019-05-08] MEDS: Gabapentin CAP(*) 300 MG PO SCH (08:07)
--- NOTE | 2019-05-08 10:44 | PN ---
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 Nursing and therapy notes read and reviewed. No chest pain, shortness of breath or abdominal pain. He recalls seeing me as an outpatient. Current Medications: Active Medications Generic Name Dose Route Start Last Admin Trade Name Freq PRN Reason Stop Dose Admin Acetaminophen 650 mg 04/29/19 13:59 05/08/19 02:45 Tylenol Tab* PO 650 mg Q6H PRN Administration MILD PAIN or TEMP > 100.4 Atorvastatin Calcium 40 mg 04/30/19 17:00 05/07/19 17:22 Lipitor* PO 40 mg 1700 JOÃO Administration Bisacodyl 10 mg 04/29/19 13:59 Dulcolax Supp* [place] DAILY PRN CONSTIPATION Dextrose 25 ml 04/29/19 14:07 Dextrose 50% Vial 50 Ml* IV PUSH .FOR FS < 60 - SS PRN FS < 60 Docusate Sodium 100 mg 04/29/19 21:00 05/08/19 08:03 Colace Cap* PO 100 mg BID JOÃO Administration Duloxetine HCl 60 mg 04/30/19 09:00 05/08/19 08:02 Cymbalta Cap* PO 60 mg DAILY JOÃO Administration Febuxostat 40 mg 05/01/19 21:00 05/07/19 21:02 Uloric(Nf) PO 40 mg BEDTIME JOÃO Administration Gabapentin 300 mg 04/29/19 21:00 05/08/19 08:07 Neurontin Cap(*) PO 300 mg TID JOÃO Administration Glipizide 10 mg 04/29/19 17:00 05/08/19 08:02 Glucotrol Tab* PO 10 mg 0800,1700 JOÃO Administration Hydrocortisone 1 applic 05/04/19 20:18 05/06/19 10:11 Hytone Cream 1%* TOPICAL 1 applic BID PRN Administration UPPER BACK DISCOMFORT Sodium Chloride 1,000 mls @ 75 mls/hr 05/05/19 21:15 05/05/19 22:56 Ns 0.9% 1000 Ml IV 75 mls/hr PER RATE JOÃO Administration Insulin Human Lispro 0 - 12 units 04/29/19 16:30 05/08/19 08:03 Humalog* SUBCUT 2 units ACHS JOÃO Administration Protocol Losartan Potassium 50 mg 04/30/19 09:00 05/08/19 08:02 Cozaar Tab* PO 50 mg DAILY JOÃO Administration Magnesium Hydroxide 30 ml 04/29/19 13:59 Milk Of Magnesia Liq* PO Q6H PRN CONSTIPATION Meclizine HCl 12.5 mg 05/06/19 12:23 Antivert Tab* PO Q8HR PRN DIZZINESS Methocarbamol 1,000 mg 05/01/19 10:57 05/02/19 21:37 Robaxin Tab* PO 500 mg Q6H PRN Administration SPASMS Methylphenidate HCl 18 mg 04/30/19 09:00 05/08/19 08:03 Concerta Er Tab* PO 18 mg DAILY JOÃO Administration Oxycodone HCl 5 mg 04/29/19 14:24 05/07/19 17:22 Roxycodone Tab* PO 5 mg Q4H PRN Administration PAIN - SEVERE Potassium Chloride 20 meq 04/29/19 21:00 05/08/19 08:03 Klor Con Er Tab* PO 20 meq BID JOÃO Administration Senna 2 tab 04/29/19 21:00 05/07/19 21:02 Senokot 8.6 Mg Tab* PO 2 tab BEDTIME JOÃO Administration Tamsulosin HCl 0.4 mg 05/06/19 21:00 05/07/19 21:02 Flomax Cap* PO 0.4 mg BEDTIME JOÃO Administration Vital Signs: Vital Signs Temp Pulse Resp BP Pulse Ox 98.1 F 75 16 139/67 100 05/08/19 05:05 05/08/19 04:00 05/08/19 10:11 05/08/19 04:00 05/08/19 08:00 Lab Results: Laboratory Results - last 24 hr 05/07/19 05/07/19 05/07/19 12:05 16:28 19:56 WBC RBC Hgb Hct MCV MCH MCHC RDW Plt Count MPV Neut % (Auto) Lymph % (Auto) [place] % (Auto) Eos % (Auto) Baso % (Auto) Absolute Neuts (auto) Absolute Lymphs (auto) Absolute Monos (auto) Absolute Eos (auto) Absolute Basos (auto) Absolute Nucleated RBC Nucleated RBC % Sodium Potassium Chloride Carbon Dioxide Anion Gap BUN Creatinine Est GFR ( Amer) Est GFR (Non-Af Amer) BUN/Creatinine Ratio Glucose POC Glucose (mg/dL) 210 H 236 H 161 H Calcium Total Bilirubin AST ALT Alkaline Phosphatase Total Protein Albumin Globulin Albumin/Globulin Ratio 05/08/19 05/08/19 05/08/19 04:12 04:12 07:41 WBC 9.7 RBC 4.03 L Hgb 12.6 L Hct 38 L MCV 94 MCH 31 MCHC 33 RDW 13 Plt Count 355 MPV 7.8 Neut % (Auto) 66.7 Lymph % (Auto) 20.1 [place] % (Auto) 7.5 Eos % (Auto) 4.7 Baso % (Auto) 1.0 Absolute Neuts (auto) 6.5 Absolute Lymphs (auto) 1.9 Absolute Monos (auto) 0.7 Absolute Eos (auto) 0.5 Absolute Basos (auto) 0.1 Absolute Nucleated RBC 0.0 Nucleated RBC % 0.1 Sodium 135 Potassium 4.3 Chloride 104 Carbon Dioxide 24 Anion Gap 7 BUN 17 Creatinine 0.84 Est GFR ( Amer) 108.4 Est GFR (Non-Af Amer) 89.6 BUN/Creatinine Ratio 20.2 H Glucose 173 H POC Glucose (mg/dL) 194 H Calcium 9.5 Total Bilirubin 0.40 AST 41 H ALT 60 H Alkaline Phosphatase 83 Total Protein 6.8 Albumin 3.6 Globulin 3.2 Albumin/Globulin Ratio 1.1 Exam: GENERAL: No acute distress. alert and appropriate. LUNGS: Clear to auscultation bilaterally HEART: regular rate and rhythm ABDOMEN: + bowel sounds, soft, non-tender, non-distended EXTREMITIES: No edema NEUROLOGIC: Sensation diminished in feet but he feels this is better since surgery. Motor strength 5/5 in BUE and 4+/5 in BLE Assessment/Plan: 1. Left MIS L4/5 TLIF: PT/OT 2. Leukocytosis: resolved. Had IV fluid bolus, IV ceftriaxone x 1 dose. Cultures negative. Seen by ID who recommended no Abx. WBC down to 9.7 (normal). f/u with Dr. Desai 3. Diabetes: Glipizide/SSI 4. Depression: Cymbalta/Methylphenidate 5. DPN: gabapentin 6. Advance Directives: Full code 7. DVT Prophylaxis: TEDs 8. Back Spasms: Methocarbamol 9. Urine Retention: resolved. Turner out and voiding 10. Dizziness/Vertigo: Held HCTZ and Flomax at bedtime. f/u with Dr. Desai. 11. Impaired cognition: since surgery. Speech therapy as outpatient. should manage medications. 12. Dispo: d/c home today. 05/08/19 10:41
--- NOTE | 2019-05-08 12:18 | DS ---
CC: Dr. Desai; Dr. Gallego REHABILITATION DISCHARGE SUMMARY: DATE OF ADMISSION: 04/29/19 DATE OF DISCHARGE: 05/08/19 PRIMARY CARE PROVIDER: Dr. Desai. NEUROSURGEON: Dr. Gallego. REASON FOR ADMISSION: Status post left L4-5 TLIF. HISTORY OF PRESENT ILLNESS: For full details of his acute hospitalization leading up to his admission, please see the note dictated by Dr. Vieyra on . REHABILITATION COURSE: During his time on the [facility], initially he still had a Turner catheter in for urine retention. This was able to be removed and he was able to void without continued urine retention. He did get some dizziness and vertigo and so his hydrochlorothiazide was discontinued and Flomax was switched to bedtime with good results. He was noted on routine labs to have an elevated white blood cell count. He had a workup including chest x-ray and cultures. Chest x-ray was unrevealing and cultures have been negative to date. He received an IV fluid bolus and one dose of IV ceftriaxone. He was seen by Infectious Disease and it was recommended that he not have any antibiotics. His white blood cell count returned to normal of 9.7 on the day of discharge. He is to follow up with Dr. Desai. He has continued using glipizide and sliding scale insulin for his diabetes management. For depression, he has used Cymbalta and methylphenidate. He has continued with gabapentin for diabetic peripheral neuropathy. He did have some back spasms and used methocarbamol for a short time, but has not used it in several days. His pain has been controlled with oxycodone, but use has been decreasing over time. Since surgery , it has been noted that he has had impaired cognition. He had MRI of the brain on 05/06/19 that was negative. He was evaluated by a speech therapist and it was recommended that his manage his medications. It has been also recommended that he have some home speech therapy as well. He also participated well in physical therapy during his stay. At the time of discharge , he is supervision for bed mobility and putting his back brace on while sitting at the edge of the bed. He requires supervision with back brace on and walker for transfers as well as with ambulation. He has been able to ambulate up to 200 feet. He requires supervision climbing stairs with back brace and rail for one flight of stairs. He has a home exercise program. He is to have the back brace on when he is out of bed and continue use of the front wheeled walker. With occupational therapy, he has been independent eating. He should have supervision for bathing and tub transfers. He needs assistance with the back brace and assistance to thread both of his legs through briefs and pants. Occasionally, he needs assistance to pull his pants over his buttocks. His is able to assist him with this. For toileting, he requires supervision with a walker and raised toilet seat. He should have assistance for hygiene post bowel movement. He needs assistance for household tasks. He is advised to not do any bending or twisting and have his LSO brace on at all times when he is out of bed, but can sit at the edge of bed without the brace. He is to stay seated on the shower chair for the entire shower and not stand without the brace. DISCHARGE CONDITION: Fair. DISCHARGE DISPOSITION: Home with his 's support. DISCHARGE MEDICATIONS: 1. Acetaminophen 650 mg q.6 hours p.r.n. mild pain or fever. 2. Docusate 100 mg b.i.d. 3. Glipizide 10 mg at 0800 and 1700. 4. Hydrocortisone 1% cream b.i.d. p.r.n. 5. Losartan 50 mg daily. 6. Oxycodone 5 mg q.4 hours p.r.n. pain, maximum daily dose of 3, wean off as tolerated. 7. Potassium chloride 20 mEq b.i.d. 8. Senna 2 tablets at bedtime. 9. Gabapentin 300 mg t.i.d. 10. Vitamin B complex q.a.m. 11. Fluticasone nasal spray 50 mcg 2 spray both nares daily p.r.n. 12. Vitamin D 2000 units q.a.m. 13. Duloxetine 60 mg q.a.m. 14. Methylphenidate 20 mg b.i.d. 15. Atorvastatin 40 mg daily. 16. Febuxostat 40 mg at bedtime. DISCHARGE DIAGNOSES: 1. Status post left L4-5 TLIF for chronic back pain. 2. Diabetic peripheral neuropathy. 3. Impaired cognition. 4. Diabetes mellitus. 5. Sleep apnea. 6. Urine retention. 7. Status post sepsis. 8. Status post leukocytosis. 9. Depression. FOLLOWUP: 1. He should see Dr. Desai next week. 2. Follow up with Dr. Gallego in 1 month. Referral has been sent to visiting nurse services for home PT/OT and Speech. [id number]/CPS #: [id number] EFRAIN
== END 2019-05-08 12:27 | disposition home health service (06) | DRG 559 ==
LOC: PMRU 11:10
PROVIDERS: ADMIT Physical Medicine & Rehabilitation; ATTEND Physical Medicine & Rehabilitation
PROC: F07Z5ZZ Bed Mobility Treatment (ICD-10-PCS; principal; 2019-04-29)
PROC: F07Z9ZZ Gait Training/Functional Ambulation Treatment (ICD-10-PCS; 2019-04-29)
PROC: F07Z8ZZ Transfer Training Treatment (ICD-10-PCS; 2019-04-29)
PROC: F08Z0ZZ Bathing/Showering Techniques Treatment (ICD-10-PCS; 2019-04-29)
PROC: F08Z1ZZ Dressing Techniques Treatment (ICD-10-PCS; 2019-04-29)
PROC: F08Z3ZZ Feeding/Eating Treatment (ICD-10-PCS; 2019-04-29)
DX: Z47.89 Encounter for other orthopedic aftercare (principal); A41.9 Sepsis, unspecified organism; E11.42 Type 2 diabetes mellitus with diabetic polyneuropathy; F32.9 Major depressive disorder, single episode, unspecified; M62.830 Muscle spasm of back; G31.84 Mild cognitive impairment of uncertain or unknown etiology; N40.1 Benign prostatic hyperplasia with lower urinary tract symptoms; R33.8 Other retention of urine; R42 Dizziness and giddiness; D72.829 Elevated white blood cell count, unspecified; E66.9 Obesity, unspecified; G47.33 Obstructive sleep apnea (adult) (pediatric); M10.9 Gout, unspecified; Z96.652 Presence of left artificial knee joint; Z79.4 Long term (current) use of insulin; Z79.84 Long term (current) use of oral hypoglycemic drugs; Z79.899 Other long term (current) drug therapy; Z88.1 Allergy status to other antibiotic agents; Z88.8 Allergy status to other drugs, medicaments and biological substances; Z68.30 Body mass index [BMI] 30.0-30.9, adult
CPT/HCPCS: 36415; 70553; 71046; 80053; 81003; 81015; 83605; 85025; 86140; 87040; 87086; 90686; A9270-GY; A9579; G0515-GO; J0696

== ENCOUNTER 2019-07-11 14:36 | Emergency (ER) | payer OTHER ==
[2019-07-11 14:54] VITALS: BP 159/90
--- NOTE | 2019-07-11 15:26 | UC ---
Respiratory Complaint HPI - HPI Summary HPI Summary: 73-year-old male comes in with a chief complaint of upper respiratory tract infection symptoms for 9 days. Initially started as some runny nose and cold symptoms. Over time the symptoms have progressed into chest congestion and some shortness of breath. Is having yellow rhinorrhea. He has chest congestion but he reports he is unable to cough it up. Denies any chest pain. He has a trace of bilateral pedal edema. No recent fevers measured. - History of Current Complaint Chief Complaint: UCGeneralIllness Stated Complaint: COUGH Time Seen by Provider: 07/11/19 15:12 Pain Intensity: 0 - Allergies/Home Medications Allergies/Adverse Reactions: Allergies Allergy/AdvReac Type Severity Reaction Status Date / Time nut - unspecified Allergy Shortness Verified 07/11/19 14:54 of Breath shellfish derived Allergy Airway Verified 07/11/19 14:54 Obstruction Sulfa (Sulfonamide Allergy Anaphylatic Verified 07/11/19 14:54 Antibiotics) Shock amlodipine AdvReac Dizziness Verified 07/11/19 14:54 levofloxacin AdvReac SEVERE Verified 07/11/19 14:54 NEUROPATHY IN LEGS metformin AdvReac Dizziness Verified 07/11/19 14:54 metoprolol AdvReac Dizziness Verified 07/11/19 14:54 verapamil AdvReac Dizziness Verified 07/11/19 14:54 Home Medications: Home Medications Tamsulosin CAP* [Flomax CAP*] 0.4 mg PO DAILY 07/11/19 [History Confirmed ] PMH/Surg Hx/FS Hx/Imm Hx Previously Healthy: Yes - GOUT Endocrine History: Diabetes, Dyslipidemia Cardiovascular History: Hypertension - Surgical History Surgical History: Yes Surgery Procedure, Year, and Place: RHINOPLASTY X 2. THUMB SURGERY. Left total knee replacement. SKIN CANCER REMOVAL. P 04/21/19. TONSILECTOMY - Family History Known Family History: Positive: Hypertension, Diabetes - Social History Alcohol Use: Daily Alcohol Amount: 1-2/day Substance Use Type: None Smoking Status (MU): Former Smoker Type: Cigarettes Amount Used/How Often: 2ppd Length of Time of Smoking/Using Tobacco: 25 years Have You Smoked in the Last Year: No When Did the Patient Quit Smoking/Using Tobacco: 1985 - Immunization History Most Recent Influenza Vaccination: 04/30/19 Most Recent Tetanus Shot: 4-5 years Most Recent Pneumonia Vaccination: 2 years ago Review of Systems All Other Systems Reviewed And Are Negative: Yes Constitutional: Positive: Other - SEE HPI Skin: Positive: Negative Eyes: Positive: Negative ENT: Positive: Nasal Discharge, Sinus Congestion Respiratory: Positive: Shortness Of Breath, Cough, Other - SEE HPI Cardiovascular: Positive: Negative Gastrointestinal: Positive: Negative Motor: Positive: Negative Neurovascular: Positive: Negative Musculoskeletal: Positive: Edema Neurological: Positive: Negative Psychological: Positive: Negative Is Patient Immunocompromised?: No Physical Exam Triage Information Reviewed: Yes Appearance: No Pain Distress, Well-Nourished, Ill-Appearing - MILD Vital Signs: Initial Vital Signs Temp 98.1 F 07/11/19 14:50 Pulse 93 07/11/19 14:50 Resp 20 07/11/19 14:50 BP 159/90 07/11/19 14:50 Pulse Ox 98 07/11/19 14:50 Vital Signs Reviewed: Yes Eye Exam: Normal Eyes: Positive: Conjunctiva Clear ENT: Positive: Pharyngeal erythema, Nasal congestion, Nasal drainage, TMs normal Neck: Positive: Supple Respiratory: Positive: Lungs clear, Normal breath sounds, No respiratory distress Cardiovascular: Positive: RRR Musculoskeletal: Positive: Strength Intact, ROM Intact, Edema @ - Trace bilateral pedal edema Neurological: Positive: Alert, Muscle Tone Normal Psychological: Positive: Age Appropriate Behavior Skin Exam: Normal Respiratory Course/Dx - Course Course Of Treatment: We discussed viral versus bacterial infections and the role of antibiotics. Patient is on day 9 of symptoms and is worsening. Patient prefers to be on antibiotics at this time. No specific wheezing however he did ask whether or not an albuterol inhaler would be helpful. I prescribed doxycycline and also an albuterol inhaler. Follow-up his primary care doctor. Discussed that if he got worse he needed to go the emergency department for further evaluation and care. - Differential Dx/Diagnosis Provider Diagnosis: Bronchitis Discharge ED - Sign-Out/Discharge Documenting (check all that apply): Patient Departure All imaging exams completed and their final reports reviewed: No Studies - Discharge Plan Condition: Stable Disposition: HOME Prescriptions: Albuterol HFA INHALER* [Ventolin HFA Inhaler*] 2 puff INH Q4H PRN #1 mdi PRN Reason: Wheezing DOXYcycline CAP(*) [DOXYcycline 100MG CAP(*)] 100 mg PO BID #20 cap Patient Education Materials: Acute Bronchitis (ED), Bronchospasm (ED) Referrals: Sylvester Desai MD [Primary Care Provider] - Additional Instructions: FOLLOW UP WITH YOUR DOCTOR IF NOT COMPLETELY IMPROVED. GET REEVALUATED SOONER IF NOT IMPROVED OR GO TO THE EMERGENCY DEPARTMENT IF WORSE OR ANY QUESTIONS OR CONCERNS. - Billing Disposition and Condition Condition: STABLE Disposition: Home
== END 2019-07-11 15:39 | disposition home or self-care (01) ==
LOC: UCEAST 14:36
DX: J40 Bronchitis, not specified as acute or chronic (principal); R09.81 Nasal congestion; M10.9 Gout, unspecified; E11.9 Type 2 diabetes mellitus without complications; I10 Essential (primary) hypertension; Z88.2 Allergy status to sulfonamides; Z88.8 Allergy status to other drugs, medicaments and biological substances; Z88.1 Allergy status to other antibiotic agents; Z91.018 Allergy to other foods; Z91.013 Allergy to seafood; Z87.891 Personal history of nicotine dependence
CPT/HCPCS: 99212; G0463

== ENCOUNTER 2020-06-16 06:10 | Observation (INO) ==
[~2020-06-16 06:10] MED LIST changes: +Buffered Lidocaine 1% SYRIN 1 ml INTRADERM ONE; -Ketorolac INJ* 30 MG/ML 1 ML VIAL IV PUSH ONE; +Lactated Ringers 1000 ml BAG 1,000 ML IV SCH; -NS 0.9% 1000 ML* 1,000 ML IV ONE; -Ondansetron INJ* 2 MG/ML VIAL IV ONE; -Orphenadrine Citrate IV* 30 MG/ML 2 ML VIAL IV ONE; -fentaNYL* 50 MCG/ML 2 ML VIAL (100 MCG VIAL) IV SLOW PU ONE
[2020-06-16] MEDS ORDERED: Lidocaine 2% PF 5 ML VIAL ONE (06:40)
[2020-06-16] MEDS ORDERED: Midazolam 2 mg/2 ml VIAL 1 mg/ml 2 ml VIAL (2 mg) ONE (06:40)
[2020-06-16] MEDS ORDERED: Ondansetron 4 mg VIAL 2 MG/ML 2 ml VIAL ONE (06:41)
[2020-06-16] MEDS ORDERED: ROPIVACAINE 5 MG/ML 30 ML BTL (0.5%) ONE (07:15)
[2020-06-16] MEDS ORDERED: Bupivacaine-MPF SPINAL 7.5 MG/ML - 2ML AMP ONE (07:19)
[2020-06-16] MEDS ORDERED: ceFAZolin 2 GM PREMIX 2 GM/50 ML BAG ONE (07:39)
[2020-06-16] MEDS ORDERED: Dexmedetomidine 200 mcg/2 ml 2 ml VIAL (200 mcg) ONE (07:41)
[2020-06-16] MEDS ORDERED: Acetaminophen IV 1 GM/100ML 100 ML ONE (09:04)
[2020-06-16] MEDS ORDERED: EPHEDrine (Pressors) 50 MG/ML VIAL ONE (09:37)
[2020-06-16] MEDS ORDERED: Phenylephrine 40 mcg/mL 10mL (400mcg) SYRINGE ONE (09:37)
[2020-06-16] MEDS ORDERED: Naloxone 0.4 mg VIAL 0.4 mg/ml 1 ml VIAL IV PRN (10:42)
[2020-06-16] MEDS ORDERED: Ondansetron 4 mg VIAL 2 MG/ML 2 ml VIAL IV PRN ×2 (10:42→10:44)
[2020-06-16] MEDS ORDERED: fentaNYL 100 mcg/2 ml 50 MCG/ML VIAL IV PRN (10:42)
[2020-06-16] MEDS ORDERED: Morphine 2 MG/ML SYRINGE IV PRN (10:44)
[2020-06-16] MEDS ORDERED: diPHENhydraMINE 25 mg TAB PO PRN (10:44)
[2020-06-16] MEDS ORDERED: Ondansetron ODT 4 mg TAB 4 MG TAB PO PRN (10:44)
[2020-06-16] MEDS ORDERED: Lactulose 30 ml UDC PO PRN (10:44)
[2020-06-16] MEDS ORDERED: diPHENhydraMINE IV 50 MG/ML 1 ml VIAL (BENADRYL) IV PRN (10:44)
[2020-06-16] MEDS ORDERED: Magnesium Hydroxide LIQ 30 ML UDC PO PRN (10:44)
[2020-06-16] MEDS: Lactated Ringers 1000 ml BAG 1,000 ML IV SCH (12:15)
[2020-06-16] MEDS ORDERED: Albuterol HFA INHALER 8 gm MDI INH PRN (12:33)
[2020-06-16] MEDS: oxyCODONE/Acetamin 5/325 mg TAB PO PRN ×2 (16:00→21:20)
[2020-06-16] MEDS: ceFAZolin 1 GM ADVAN 1 GM in NS 0.9% 50 ML 50 ML IVPB SCH (16:00)
[2020-06-16] MEDS: Magnesium Hydroxide LIQ 30 ML UDC PO SCH (21:20)
[2020-06-17] MEDS: Lactated Ringers 1000 ml BAG 1,000 ML IV SCH (00:10)
[2020-06-17] MEDS: ceFAZolin 1 GM ADVAN 1 GM in NS 0.9% 50 ML 50 ML IVPB SCH ×2 (00:11→08:59)
[2020-06-17] MEDS: oxyCODONE/Acetamin 5/325 mg TAB PO PRN ×2 (04:43→14:11)
[2020-06-17 06:56] LABS: Hematocrit 37 % (42-52); Hemoglobin 12.4 g/dL (14.0-18.0); Platelet Count 131 10^3/uL (150-450)
[2020-06-17 07:12] LABS: BUN/Creatinine Ratio 15.8 (8-20); Calcium 8.6 mg/dL (8.6-10.3); EGFR African American 93.8 (>60); EGFR Non-African American 77.5 (>60); Potassium 4.3 mmol/L (3.5-5.0)
[2020-06-17] MEDS ORDERED: DULoxetine DR 60 mg CAP PO SCH (09:00)
[2020-06-17] MEDS ORDERED: Vitamin THERAPEUTIC TAB PO SCH (09:00)
[2020-06-17] MEDS ORDERED: Febuxostat 40 mg TAB (NF) PO SCH (09:00)
[2020-06-17] MEDS: Magnesium Hydroxide LIQ 30 ML UDC PO SCH (09:05)
[2020-06-17 11:36] VITALS: BP 142/88
[2020-06-17 12:25] LABS: Hepatitis C Antibody Negative (Negative)
== END 2020-06-17 14:54 | disposition home or self-care (01) ==
LOC: SSU 06:10 → OR 06:10
PROVIDERS: ADMIT Orthopaedic Surgery Adult Reconstructive Orthopaedic Surgery; ATTEND Orthopaedic Surgery Adult Reconstructive Orthopaedic Surgery